=== PATIENT | female | born 1935 | race Caucasian/White ===

== ENCOUNTER 2016-10-22 08:11 | Day surgery (SDC) | payer OTHER, BC ==
[2016-10-21 12:42] VITALS: BMI 28.4
[2016-10-22] MEDS ORDERED: MIDAZOLAM HCL 2 MG/2 ML SINGLE DOSE VIAL ONE (08:27)
[2016-10-22] MEDS ORDERED: BUPIVACAINE HCL/PF 0.5% (5MG/ML) 10 ML VIAL ONE (08:52)
[2016-10-22] MEDS ORDERED: LIDOCAINE 1%/EPI 1:100000 (50 ML MULTI DOSE VIAL) ONE (08:52)
--- NOTE | 2016-10-22 09:28 | HP ---
Admitting History and Physical - Primary Care Physician PCP: Landon Linton (Mail Sorting Supervisor) - Admission Chief Complaint: Pain in the right bunion and 2nd hammertoe History of Present Illness: Patient has tried to accommodate the lesions with shoes but feels she just cannot tolerate the discomfort any longer. History Source: Medical Record (Medical history deferred to pcp) - Past Medical History OPTOMETRIST: Yes: CVA Cardiovascular: Yes: HTN, Hyperlipdemia Endocrine: Yes: Diabetes Mellitus - Advance Directives Advance Directives: Yes: Health Care Proxy - Smoking History Smoking history: Never smoked - Alcohol/Substance Use Hx Alcohol Use: No History of Substance Use: reports: None - Social History History of Recent Travel: No Home Medications - Allergies Allergies/Adverse Reactions: Allergies Allergy/AdvReac Type Severity Reaction Status Date / Time No Known Allergies Allergy Verified 10/21/16 12:42 - Home Medications Home Medications: Ambulatory Orders Amlodipine Besylate [Norvasc -] 10 mg PO DAILY 02/19/15 Canagliflozin [Invokana] 100 mg PO DAILY 02/19/15 Glimepiride 4 mg PO BID 02/19/15 Simvastatin [Zocor -] 20 mg PO HS 02/19/15 Sitagliptin Phosphate [Januvia] 100 mg PO DAILY 02/19/15 Aspirin Coated [Ecotrin -] 81 mg PO DAILY #30 tablet.ec 02/25/15 Atorvastatin Ca [Lipitor] 10 mg PO HS #30 tablet 02/25/15 Clopidogrel Bisulfate [Plavix -] 75 mg PO DAILY #30 tablet 02/25/15 Pantoprazole Sodium [Protonix -] 40 mg PO DAILY #30 tablet.ec 02/25/15 Physical Examination Vital Signs: Vital Signs Temperature 97.7 F 10/22/16 08:43 Pulse Rate 79 10/22/16 08:43 Respiratory Rate 18 10/22/16 08:43 Blood Pressure 133/76 10/22/16 08:43 O2 Sat by Pulse Oximetry (%) 97 10/22/16 08:46 Musculoskeletal: Yes: Other (badly subluxed right hallux is present with hammered right 2nd toe.) Assessment/Plan Assessment Right severe bunion with hallux valgus. Right 2nd hammertoe Plan Right Coats with arthroplasty in the right 2nd toe.
[2016-10-22] MEDS ORDERED: ceFAZolin SODIUM 1 GM VIAL IVPB ONE (10:05)
[2016-10-22] MEDS ORDERED: LIDOCAINE 1%/EPI 1:100000 (50 ML MULTI DOSE VIAL) INF ONE (10:07)
[2016-10-22] MEDS ORDERED: BUPIVACAINE HCL/PF 0.5% (5MG/ML) 10 ML VIAL IJ ONE (10:07)
[2016-10-22] MEDS ORDERED: ACETAMINOPHEN 325 MG TABLET (FP) PO PRN (11:46)
[2016-10-22] MEDS ORDERED: ONDANSETRON 4 MG/2 ML VIAL IVPUSH PRN ×2 (11:46)
[2016-10-22 12:22] VITALS: TEMP 97.7
[2016-10-22 12:28] VITALS: PULSE 80
[2016-10-22 13:39] VITALS: BP 134/76
--- NOTE | 2016-10-22 13:46 | OP ---
DATE OF OPERATION: 10/22/2016 SURGEON: Landon Linton DPM PREOPERATIVE DIAGNOSES: Right bunion with hallux valgus and right 2nd hammertoe. POSTOPERATIVE DIAGNOSES: Right bunion with hallux valgus and right 2nd hammertoe. PROCEDURE: Right Coats bunionectomy and right 2nd toe arthroplasty. DESCRIPTION OF PROCEDURE: Under fractional anesthesia and a surgical scrub with Betadine scrub and solution x2, the patient was draped using sterile technique. After 3 minutes of right limb elevation, a right ankle tourniquet was inflated to 250 mmHg pressure for 58 minutes. Inspection of the right foot showed a complete subluxation of the right 1st metatarsophalangeal joint and hammering of the proximal interphalangeal joint of the right 2nd toe. Using a number 15 surgical blade, a linear longitudinal incision was made on the dorsomedial aspect of the right foot over the 1st metatarsophalangeal joint. The incision was deepened through fascia and retracted. The extensor tendon was identified. The extensor santos apparatus was cut medially and laterally, and then a Z-plasty extensor tendon lengthening was performed. A linear longitudinal capsulotomy was performed at the 1st metatarsophalangeal joint, interphalangeal ligaments and sesamoidal ligaments were cut and the 1st metatarsophalangeal joint bones were delivered into the wound. Large medial eminence, lots of dystrophy in the 1st metatarsal head joint capsule was noted, and then an osteotomy was performed at the flare of the proximal phalanx to remove the base of the proximal phalanx in the right hallux. Following resection of the base of the proximal phalanx, a large portion of medial eminence and 1st metatarsal head were removed from the medial aspect of the 1st metatarsal to reduce the prominence in the 1st metatarsophalangeal joint. The bone edges were rounded and smoothed, and then the wound was copiously irrigated with sterile saline. Joint capsule was fashioned into 3 flaps and sutured around the 1st metatarsal head with 3-0 Vicryl suture. This included a plantar flap and the flexor tendon, which remained intact throughout the procedure, and medial and lateral metatarsophalangeal joint flaps. The hallux was reduced into a normal anatomic position and also sutured down, periosteum to the triple flap of the metatarsal head. The extensor tendon was reapproximated in normal anatomic position in its lengthened form, and then superficial fascia was reapproximated and closed with 4-0 Vicryl suture. Skin was then reapproximated and closed with 4-0 Prolene suture. Attention was then directed to the right 2nd toe. A linear longitudinal incision was made in the midline of the right 2nd toe with the proximal interphalangeal joint. The incision was deepened through fascia and retracted, exposing the joint capsule. A transverse capsulotomy was performed. The head of the proximal phalanx of the 2nd toe was delivered into the wound and resected using bone cutting forceps. The wound was irrigated with sterile saline, and then the joint capsule was repaired with 4-0 Vicryl suture. Skin was then reapproximated as the toe was reduced into a more normal anatomic position and closed with 4-0 Prolene suture. The ankle tourniquet was deflated after 58 minutes of inflation. Vascular perfusion immediately returned to all 5 digits, so a dry sterile dressing was applied to the right foot. The patient tolerated the surgical procedure well, left the operating room stable, alert, awake, and in no pain. VIKA MELO/[id number]
--- NOTE | 2016-10-25 13:50 | PATH ---
Surgical Pathology Report Patient Name: FARIDEH MELO [facility]. Rec. #: [id number] /Age/Gender: 1935 (Age: 81) / F Account: [id number] Location: [facility] Taken: 10/22/2016 Received: 10/22/2016 Reported: 10/25/2016 Physicians: Landon Linton M.D. Specimen(s) Received A: BONE FRAGMENTS RIGHT 2ND TOE B: BONE 1ST METATARSAL HEAD RIGHT FOOT Clinical History Right bunion left hallux rigidus Final Diagnosis A. BONE, RIGHT SECOND TOE, EXCISION: UNREMARKABLE BONE AND ARTICULAR CARTILAGE. B. BONE, RIGHT FOOT FIRST METATARSAL HEAD, EXCISION: BONE AND CARTILAGE WITH REACTIVE CHANGES. Electronically Signed Royer Cortes M.D. Gross Description A. Received in formalin, labeled "bone right second toe," are 2 linares, irregular portions of bone measuring 1.0 x 0.4 x 0.3 cm and 1.1 x 0.7 x 0.5 cm. The larger portion is bisected and the specimen is entirely submitted in one cassette, following decalcification. B. Received in formalin, labeled "bone first metatarsal head," are 2 linares, irregular portions of bone measuring 2.0 x 1.7 x 0.8 cm and tissue 0.7 x 2.0 x 1.0 cm. [employer] sections are submitted in one cassette, following decalcification. 10/22/201610/22/2016
== END 2016-10-22 13:41 | disposition home or self-care (01) ==
LOC: JASU-SURG 08:11
PROVIDERS: ATTEND Podiatrist Foot Surgery
PROC: 0QBN0ZZ Excision of Right Metatarsal, Open Approach (ICD-10-PCS; 2016-10-22)
PROC: 0SRP0JZ Replacement of Right Toe Phalangeal Joint with Synthetic Substitute, Open Approach (ICD-10-PCS; principal; 2016-10-22 09:30)
DX: M21.611 Bunion of right foot (principal); M20.11 Hallux valgus (acquired), right foot; M20.41 Other hammer toe(s) (acquired), right foot
CPT/HCPCS: 73630-TC-RT; 88304-TC; 88311-TC; 94760

== ENCOUNTER 2017-04-02 00:29 | Inpatient (IN) | payer OTHER, BC ==
[2017-04-02 01:09] VITALS: BMI 28.2
[2017-04-02] MEDS ORDERED: SODIUM CHLORIDE 1,000 ML IV SCH ×2 (01:15→07:30)
[2017-04-02] MEDS ORDERED: ONDANSETRON 4 MG/2 ML VIAL IVPB ONE (01:15)
[2017-04-02] MEDS ORDERED: ONDANSETRON 4 MG/2 ML VIAL ONE (01:46)
[2017-04-02 01:47] LABS: BASOPHIL 0.2 % (0-2.0); EOSINOPHIL 0.6 % (0-4.5); MCH 26.7 pg (25.7-33.7); MCHC 33.4 g/dl (32.0-36.0); MEAN PLT VOLUME 9.5 fl (7.5-11.1); NEUTROPHILS 82.6 % (42.8-82.8); PLATELET COUNT 195 K/MM3 (134-434); RDW 14.1 % (11.6-15.6); WHITE BLOOD COUNT 17.2 K/mm3 (4.0-10.0)
[2017-04-02 01:59] LABS: INR 0.97 (0.82-1.09); PROTHROMBIN TIME (PATIENT) 10.7 SEC (9.98-11.88)
[2017-04-02 02:08] LABS: ALBUMIN 4.4 g/dl (3.4-5.0); ANION GAP 12 (8-16); CALCIUM 9.2 mg/dL (8.5-10.1); CHOLESTEROL 181 mg/dL (50-200); CO2 26 mmol/L (21-32); CREATININE 0.7 mg/dL (0.55-1.02); GLUCOSE,RANDOM 206 mg/dL (74-106); SGPT/ALT 34 U/L (12-78)
[2017-04-02 02:12] LABS: ALK PHOS 95 U/L (45-117); BILIRUBIN,TOTAL 1.2 mg/dL (0.2-1.0); TOT PROT 7.7 g/dl (6.4-8.2); TROPONIN I < 0.02 ng/ml (0.00-0.05)
[2017-04-02 02:13] LABS: SGOT/AST 27 U/L (15-37)
--- NOTE | 2017-04-02 02:13 | PDOC ---
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 As per daughter, the patient was at her baseline when she fell asleep around 8:30 pm last night. Daughter states the patient woke up around 10:30 pm saying shedidn't feel well. Daughter states the patient was diaphoretic, vomiting, passing a lot of gas, wet her bed, and also noted hematuria. Upon evaluation, patient exhibited seizure-like symptoms, right sided arm weakness and right sided mouth dropping. Patient recently had a brain MRI done on 03/15/17 that showed a subacute infarct. Denies fevers or chills. Denies chest pain or shortness of breath. Denies abdominal pain, diarrhea, or hematuria. Denies flank pain. Denies any other symptoms. <Alessio Dunn - Last Filed: 04/02/17 02:15> - General History Source: Patient, Family Exam Limitations: No Limitations <Blu Lopez - Last Filed: 04/02/17 23:41> - General Chief Complaint: Nausea/Vomiting Stated Complaint: ALTERED MENTAL STATUS/VOMITING Time Seen by Provider: 04/02/17 00:57 Past History <Alessio Dunn - Last Filed: 04/02/17 02:15> - Past Medical History Anemia: No Asthma: No Cancer: No Cardiac Disorders: No CVA: Yes (SEVERAL CVA'S) COPD: No CHF: No Dementia: No Diabetes: Yes GI Disorders: No Disorders: No HTN: Yes Hypercholesterolemia: Yes Liver Disease: No Suicide Attempt (Hx): No Seizures: No Thyroid Disease: No - Surgical History Abdominal Surgery: No Appendectomy: No Cardiac Surgery: Yes (REVEAL LINQ cardiac monito implanted) Cholecystectomy: Yes Lung Surgery: No Neurologic Surgery: No Orthopedic Surgery: No - Psycho/Social/Smoking Cessation Hx Suicidal Ideation: No Smoking History: Never smoked Have you smoked in the past 12 months: No Information on smoking cessation initiated: No Hx Alcohol Use: No Drug/Substance Use Hx: No Substance Use Type: None Hx Substance Use Treatment: No <Blu Lopez - Last Filed: 04/02/17 23:41> - Past Medical History Allergies/Adverse Reactions: Allergies Allergy/AdvReac Type Severity Reaction Status Date / Time No Known Allergies Allergy Verified 04/02/17 00:47 Home Medications: Ambulatory Orders Amlodipine Besylate [Norvasc -] 10 mg PO DAILY 04/02/17 Calcium Carbonate [Calcium] 500 mg PO BID 04/02/17 Canagliflozin [Invokana] 100 mg PO DAILY 04/02/17 Cholecalciferol (Vitamin D3) [Vitamin D3 -] 5,000 unit PO DAILY 04/02/17 Clopidogrel Bisulfate [Plavix -] 75 mg PO DAILY 04/02/17 Glimepiride [Amaryl -] 2 mg PO BID 04/02/17 Glucosamine Sulfate Dipot Chlr [Glucosamine] 1,000 mg PO BID 04/02/17 L.acidoph,Paracasei, B.lactis [Probiotic] 1 each PO BID 04/02/17 Simvastatin [Zocor -] 20 mg PO HS 04/02/17 Sitagliptin Phosphate [Januvia] 50 mg PO DAILY 04/02/17 Review of Systems - Review of Systems Able to Perform ROS?: Yes Comments:: 04/02/17 02:16 GENERAL/CONSTITUTIONAL: + diaphoresis, change in behavior. No fever or chills HEAD, EYES, EARS, NOSE AND THROAT: No change in vision. No ear pain or discharge. No sore throat. CARDIOVASCULAR: No chest pain or shortness of breath. RESPIRATORY: No cough, wheezing, or hemoptysis. GASTROINTESTINAL: + vomiting, flatulence. No diarrhea or constipation. GENITOURINARY: + hematuria. No dysuria, frequency. MUSCULOSKELETAL: No joint or muscle swelling or pain. No neck or back pain. SKIN: No rash NEUROLOGIC: + seizure-like symptoms, right arm weakness, right mouth drooping. No headache, vertigo, loss of consciousness. ENDOCRINE: No increased thirst. No abnormal weight change. HEMATOLOGIC/LYMPHATIC: No anemia, easy bleeding, or history of blood clots. ALLERGIC/IMMUNOLOGIC: No hives or skin allergy. All Other Systems: Reviewed and Negative <Alessio Dunn - Last Filed: 04/02/17 02:15> *Physical Exam - Vital Signs Last Vital Signs Temp Pulse Resp BP Pulse Ox 97.9 F 94 H 18 137/83 98 04/02/17 00:47 04/02/17 00:47 04/02/17 00:47 04/02/17 00:47 04/02/17 00:47 - Physical Exam Comments: 04/02/17 02:16 GENERAL: Awake, alert, and fully oriented, in no acute distress HEAD: No signs of trauma EYES: PERRLA, EOMI, sclera anicteric, conjunctiva clear ENT: Auricles normal inspection, hearing grossly normal, nares patent, oropharynx clear without exudates. Moist mucosa NECK: Normal ROM, supple, no lymphadenopathy, JVD, or masses LUNGS: Breath sounds equal, clear to auscultation bilaterally. No wheezes, and no crackles HEART: Regular rate and rhythm, normal S1 and S2, no murmurs, rubs or gallops ABDOMEN: Soft, nontender, normoactive bowel sounds. No guarding, no rebound. No masses EXTREMITIES:, no edema. No clubbing or cyanosis. No cords, erythema, or tenderness NEUROLOGICAL: + Tiny seizure on examination. Right facial droop, 3/5 Right upper extremity strength, unable to tell me if there is decrese sensation, mild slurring speech, right pronator drift. SKIN: Warm, Dry, normal turgor, no rashes or lesions noted. <Alessio Dunn - Last Filed: 04/02/17 02:15> - Vital Signs Last Vital Signs Temp Pulse Resp BP Pulse Ox 97.9 F 94 H 18 137/83 98 04/02/17 00:47 04/02/17 00:47 04/02/17 00:47 04/02/17 00:47 04/02/17 00:47 - Physical Exam Comments: 04/02/17 23:40 PLEASE DISREGARD DOCUMENTATION BY SCRIBE. THERE WAS NO SEIZURE! <Blu Lopez - Last Filed: 04/02/17 23:41> NIH Stroke Scale - Last Known Well Date/Time & Onset Date Last Known Well: 04/02/17 Time Last Known Well: 20:30 - Initial Evaluation Level of consciousness: Alert Ask patient the month and their age: Answers both correctly Ask patient to open & close eyes; make fist and let go: Obeys both correctly Best gaze (horizontal eye movement): Normal Visual field testing: No visual field loss Facial paresis (Show teeth/raise eyebrows/close eyes tight): Partial paralysis ( total or near paralysis of lower face) Motor Function: Left Arm: Normal Motor Function: Right Arm: Some effort against gravity Motor Function: Left Leg: Normal (extends leg 30 degrees for 5 seconds without drift) Motor Function: Right Leg: Normal (extends leg 30 degrees for 5 seconds without drift) Limb Ataxia: No ataxia Sensory(Use pinprick test arms,legs,trunk,face/side to side): Normal Best language (Describe picture, name items, read sentences): No Aphasia Dysarthria (read several words): Mild to moderate slurring of words Extinction and Inattention: No abnormality - Total Score NIH Stroke Scale Score: 5 <Blu Lopez - Last Filed: 04/02/17 23:41> Heart Score/ECG Review #1 ECG reviewed & interpreted by me at: 01:40 04/02/17 02:14 NSR 96, RBBB, submm STD V3-V5, no std/mily, QTC 571 msec <Blu Lopez - Last Filed: 04/02/17 23:41> Critical Care Time/MDM Note - Medical Decision Making Note: 04/02/17 02:12 A portion of this note was documented by scribe services under my direction. I have reviewed the details of the note, within reason, and agree with the documentation with the following case summary and management plan written by me. Patient treated in the ED. Nursing notes are reviewed and incorporated into the medical decision-making. Vital signs reviewed. Peripheral IV access obtained by the nurse, laboratory studies are drawn and sent, reviewed and interpreted by myself. Vital Signs Temp Pulse Resp BP Pulse Ox 97.9 F 94 H 18 137/83 98 04/02/17 00:47 04/02/17 00:47 04/02/17 00:47 04/02/17 00:47 04/02/17 00:47 81 year old female with Past medical history of hypertension, diabetes, hyperlipidemia, history of stroke with residual right-sided deficits presents to the emergency department for right-sided facial droop and right upper showing weakness. The patient was in her usual state of health when approximately 8:30 PM, her last well-known, she had went to sleep and woke approximately 10:30 AM with right upper extremity weakness and right facial droop which is worse than her usual baseline. Denies fevers or chills. Denies cough or vomiting. Patient did have an MRI of the brain in March 15 which time should nonhemorrhagic subacute infarct in the right periatrial white matter. When I had evaluated the patient, the patient was outside the window for TPA. Patient was brought immediately to the head CT to rule out new strokes. Within differential is recrudescence. We'll obtain labs, urinalysis, chest x-ray and admit the patient to the hospital for further evaluation. 04/02/17 05:50 CT head with no acute findings. CBC, BMP 04/02/17 01:40 04/02/17 01:40 CMP Sodium 143 mmol/L (136-145) 04/02/17 01:40 Potassium 3.3 mmol/L (3.5-5.1) L 04/02/17 01:40 Chloride 105 mmol/L (98-107) 04/02/17 01:40 Carbon Dioxide 26 mmol/L (21-32) 04/02/17 01:40 Anion Gap 12 (8-16) 04/02/17 01:40 BUN 15 mg/dL (7-18) 04/02/17 01:40 Creatinine 0.7 mg/dL (0.55-1.02) D 04/02/17 01:40 Creat Clearance w eGFR > 60 (>60) 04/02/17 01:40 Random Glucose 206 mg/dL (74-106) H D 04/02/17 01:40 Calcium 9.2 mg/dL (8.5-10.1) 04/02/17 01:40 Total Bilirubin 1.2 mg/dL (0.2-1.0) H D 04/02/17 01:40 AST 27 U/L (15-37) D 04/02/17 01:40 ALT 34 U/L (12-78) D 04/02/17 01:40 Alkaline Phosphatase 95 U/L (45-117) 04/02/17 01:40 Creatine Kinase 87 IU/L (26-192) 04/02/17 01:40 Troponin I < 0.02 ng/ml (0.00-0.05) 04/02/17 01:40 Total Protein 7.7 g/dl (6.4-8.2) 04/02/17 01:40 Albumin 4.4 g/dl (3.4-5.0) D 04/02/17 01:40 Triglycerides 104 mg/dL (35-160) 04/02/17 01:40 Cholesterol 181 mg/dL (50-200) 04/02/17 01:40 Total LDL Cholesterol 112 mg/dL (5-100) H 04/02/17 01:40 HDL Cholesterol 60 mg/dL (40-60) D 04/02/17 01:40 Urine Test Results Urine Color Ltyellow 04/02/17 04:30 Urine Appearance Clear 04/02/17 04:30 Urine pH 7.0 (5.0-8.0) 04/02/17 04:30 Urine Protein Negative (NEGATIVE) 04/02/17 04:30 Urine Glucose (UA) 3+ (NEGATIVE) H 04/02/17 04:30 Urine Ketones Trace (NEGATIVE) H 04/02/17 04:30 Urine Blood Negative (NEGATIVE) 04/02/17 04:30 Urine Nitrite Negative (NEGATIVE) 04/02/17 04:30 Urine Bilirubin Negative (NEGATIVE) 04/02/17 04:30 Ur Leukocyte Esterase Trace (NEGATIVE) H 04/02/17 04:30 Urine RBC 1 /hpf (0-3) 04/02/17 04:30 Urine WBC 2 /hpf (3-5) 04/02/17 04:30 Ur Epithelial Cells Rare /hpf (FEW) 04/02/17 04:30 Given the white count of 17, blood cultures ordered and empiric vancomycin and Zosyn was ordered. Consultation was placed in for Dr. Wiggins for consultation. Will place a page. Case discussed with [facility] hospitalist. Pt will be admitted to the stroke unit. Case discussed in detail with admitting physician including history, physical exam and ancillary studies. Admitting physician has assumed care for the patient, will follow all pending diagnostics and will complete the evaluation and treatment. 04/02/17 06:09 Asa ordered. Case discussed with DR. Mich Wiggins who will see patient. <Blu Lopez - Last Filed: 04/02/17 23:41> Discharge Disposition <Alessio Dunn - Last Filed: 04/02/17 02:15> - Discharge Dispostion Last Admission D/C Date: 02/25/15 Admit: Yes <Blu Lopez - Last Filed: 04/02/17 23:41> - Diagnosis Right sided weakness Leukocytosis Qualifiers: Leukocytosis type: unspecified Qualified Code(s): D72.829 - Elevated white blood cell count, unspecified - Referrals
[2017-04-02 03:03] LABS: LDL CHOLESTEROL (ONLY SJRH) 112 mg/dL (5-100)
[2017-04-02 04:48] LABS: URINE APPEARANCE CLEAR; URINE BILIRUBIN NEGATIVE (NEGATIVE); URINE BLOOD NEGATIVE (NEGATIVE); URINE COLOR LTYELLOW; URINE GLUCOSE (UA) 3+ (NEGATIVE); URINE KETONE TRACE (NEGATIVE); URINE NITRITE NEGATIVE (NEGATIVE); URINE PROTEIN NEGATIVE (NEGATIVE); URINE UROBILINOGEN NEGATIVE mg/dL (0.2-1.0)
[2017-04-02 04:49] LABS: URINE LEUK ESTERASE TRACE (NEGATIVE)
[2017-04-02 04:52] LABS: URINE RBC 1 /hpf (0-3); URINE WBC 2 /hpf (3-5)
[2017-04-02] MEDS ORDERED: ASPIRIN 81 MG CHEWABLE TABLETS PO ONE (06:08)
[2017-04-02] MEDS ORDERED: ASPIRIN 325 MG TABLET ONE (06:31)
--- NOTE | 2017-04-02 06:47 | HP ---
CHIEF COMPLAINT: nausea, dizzy PCP: Nirmal Saenz?? HISTORY OF PRESENT ILLNESS: This is an 81 year old female with a a past medical history of mult CVAs with residual RUE weakness, HTN, HLD, DM who presented to the ED after awakening at 1030pm "not feeling well". All history obtained from ED chart as pt is primarily Estonian speaking; osteopathy doctor (#[id number]) was contacted and pt informed the osteopathy doctor to call her daughter. Senior Wealth Advisor reported speech was slurred and very difficult to understand. Pt reportedly was fine when she went to sleep at 830, but then awok at 1030 not felling well. Her daughter reported she was nauseas, dizzy, diaphoretic, vomiting, passing gas, and wet her bed. Hematuria was noted as well. ED provider noted a 5 second episode of shaking of right upper extremity with right sided gaze but without postictal period. Pt reports feeling better on exam. Is able to follow simple commands and answer simple questions. ER course was notable for: (1) CT head with no acute changes (2) WBC 17.2, (3) Potassium 3.3 Recent Travel: unknown PAST MEDICAL HISTORY: mult CVAs with residual RUE weakness, HTN, HLD, DM PAST SURGICAL HISTORY: bus monitor-loop recorder implanted R bunionectomy 2nd hammertoe surgery 10/2016 Social History: Smoking: unknown Alcohol: unknown Drugs: unknown Family History: unknown Allergies No Known Allergies Allergy (Verified 04/02/17 00:47) HOME MEDICATIONS: 3 Medication Instructions Recorded Amlodipine Besylate [Norvasc -] 10 mg PO DAILY 02/19/15 Canagliflozin [Invokana] 100 mg PO DAILY 02/19/15 Glimepiride 4 mg PO BID 02/19/15 Simvastatin [Zocor -] 20 mg PO HS 02/19/15 Sitagliptin Phosphate [Januvia] 100 mg PO DAILY 02/19/15 Aspirin Coated [Ecotrin -] 81 mg PO DAILY #30 tablet.ec 02/25/15 Atorvastatin Ca [Lipitor] 10 mg PO HS #30 tablet 02/25/15 Clopidogrel Bisulfate [Plavix -] 75 mg PO DAILY #30 tablet 02/25/15 Pantoprazole Sodium [Protonix -] 40 mg PO DAILY #30 tablet.ec 02/25/15 REVIEW OF SYSTEMS CONSTITUTIONAL: Present: diaphoresis Absent: fever, chills, generalized weakness, malaise, loss of appetite, weight change HEENT: Absent: rhinorrhea, nasal congestion, throat pain, throat swelling, difficulty swallowing, mouth swelling, ear pain, eye pain, visual changes CARDIOVASCULAR: Absent: chest pain, syncope, palpitations, irregular heart rate, lightheadedness , peripheral edema RESPIRATORY: Absent: cough, shortness of breath, dyspnea with exertion, orthopnea, wheezing, stridor, hemoptysis GASTROINTESTINAL: Present: nausea, vomiting Absent: abdominal pain, abdominal distension, diarrhea, constipation, melena, hematochezia GENITOURINARY: Present: incontinent, hematuria Absent: dysuria, frequency, urgency, hesitancy, flank pain, genital pain MUSCULOSKELETAL: Absent: myalgia, arthralgia, joint swelling, back pain, neck pain SKIN: Absent: rash, itching, pallor HEMATOLOGIC/IMMUNOLOGIC: Absent: easy bleeding, easy bruising, lymphadenopathy, frequent infections ENDOCRINE: Absent: unexplained weight gain, unexplained weight loss, heat intolerance, cold intolerance NEUROLOGIC: Absent: headache, focal weakness or paresthesias, dizziness, unsteady gait, seizure, mental status changes, bladder or bowel incontinence PSYCHIATRIC: Absent: anxiety, depression, suicidal or homicidal ideation, hallucinations. PHYSICAL EXAMINATION Vital Signs - 24 hr 3 04/02/17 04/02/17 04/02/17 00:47 02:29 06:37 Temperature 97.9 F 98.2 F Pulse Rate 94 H Pulse Rate [ 94 H Left] Respiratory 18 19 Rate Blood Pressure 137/83 Blood Pressure 142/70 [Left Arm] O2 Sat by Pulse 98 99 99 Oximetry (%) GENERAL: Awake, alert, and fully oriented, in no acute distress. HEAD: Normal with no signs of trauma. EYES: Pupils equal, round and reactive to light, extraocular movements intact, sclera anicteric, conjunctiva clear. No lid lag. EARS, NOSE, THROAT: Ears normal, nares patent, oropharynx clear without exudates. Moist mucous membranes. NECK: Normal range of motion, supple without lymphadenopathy, JVD, or masses. LUNGS: Breath sounds equal, clear to auscultation bilaterally. No wheezes, and no crackles. No accessory muscle use. HEART: Regular rate and rhythm, normal S1 and S2 without murmur, rub or gallop. ABDOMEN: Soft, nontender, not distended, normoactive bowel sounds, no guarding, no rebound, no masses. No hepatomegaly or splenomegaly. MUSCULOSKELETAL: Normal range of motion at all joints. No bony deformities or tenderness. No CVA tenderness. UPPER EXTREMITIES: 2+ pulses, warm, well-perfused. No cyanosis. No clubbing. No peripheral edema. LOWER EXTREMITIES: 2+ pulses, warm, well-perfused. No calf tenderness. No peripheral edema. NEUROLOGICAL: Cranial nerves II-XII intact. Normal speech. Normal gait. RUE strength 4/5, all else 5/5 PSYCHIATRIC: Cooperative. Good eye contact. Appropriate mood and affect. SKIN: Warm, dry, normal turgor, no rashes or lesions noted, normal capillary refill. Laboratory Results - last 24 hr 3 04/02/17 04/02/17 04/02/17 01:40 01:40 01:40 WBC 17.2 H D RBC 6.10 H Hgb 16.3 H Hct 48.8 H MCV 80.0 MCH 26.7 MCHC 33.4 RDW 14.1 Plt Count 195 D MPV 9.5 Neutrophils % 82.6 D Lymphocytes % 11.8 D Monocytes % 4.8 Eosinophils % 0.6 Basophils % 0.2 INR 0.97 Sodium 143 Potassium 3.3 L Chloride 105 Carbon Dioxide 26 Anion Gap 12 BUN 15 Creatinine 0.7 D Creat Clearance w eGFR > 60 Random Glucose 206 H D Calcium 9.2 Total Bilirubin 1.2 H D AST 27 D ALT 34 D Alkaline Phosphatase 95 Creatine Kinase 87 Troponin I < 0.02 Total Protein 7.7 Albumin 4.4 D Triglycerides 104 Cholesterol 181 Total LDL Cholesterol 112 H HDL Cholesterol 60 D Urine Color Urine Appearance Urine pH Urine Protein Urine Glucose (UA) Urine Ketones Urine Blood Urine Nitrite Urine Bilirubin Urine Urobilinogen Ur Leukocyte Esterase Urine RBC Urine WBC Ur Epithelial Cells Blood Type AB POSITIVE Antibody Screen Negative 3 Urine Color Ltyellow 04/02/17 04:30 Urine Appearance Clear 04/02/17 04:30 Urine pH 7.0 (5.0-8.0) 04/02/17 04:30 Urine Protein Negative (NEGATIVE) 04/02/17 04:30 Urine Glucose (UA) 3+ (NEGATIVE) H 04/02/17 04:30 Urine Ketones Trace (NEGATIVE) H 04/02/17 04:30 Urine Blood Negative (NEGATIVE) 04/02/17 04:30 Urine Nitrite Negative (NEGATIVE) 04/02/17 04:30 Urine Bilirubin Negative (NEGATIVE) 04/02/17 04:30 Ur Leukocyte Esterase Trace (NEGATIVE) H 04/02/17 04:30 Urine RBC 1 /hpf (0-3) 04/02/17 04:30 Urine WBC 2 /hpf (3-5) 04/02/17 04:30 Ur Epithelial Cells Rare /hpf (FEW) 04/02/17 04:[address] head Images: 74 Clinical indication: Rule out CVA/TIA. Weakness. Findings: Multiple axial images were obtained of the brain without contrast. There is no mass-effect, midline shift or hemorrhage. There is no intra-axial or extra-axial fluid collection. Atrophic involutional changes and chronic ischemic periventricular white matter changes are noted. Focal hypoattenuation seen in the left basal ganglia on the margin of the left thalamus is consistent with a small vessel infarct likely chronic. Focal periventricular white matter hypoattenuation seen on the left also appears to represents old small vessel infarct. The visualized portions of the paranasal sinuses are clear. The middle ear cavities and mastoids are clear. Impression: No mass effect or intracranial hemorrhage. No acute abnormality identified THIS DOCUMENT HAS BEEN ELECTRONICALLY SIGNED Sy Stephenson M.D. 01:32 TRISTA Patel Please call Imaging Parole Director [phone] ([phone]) with questions. End of Report Content ====== Senior Wealth Advisor: ([email or web address]) Report Date: 04/02/2017 01:15:00 Report Status: Preliminary Begin of Report Content Referring Physician: Blu Lopez Patient Name: Krissy Lucas This is a preliminary report by imaging commissioning specialist Exam: Noncontrast CT head Images: 74 Clinical indication: Rule out CVA/TIA. Weakness. Findings: Multiple axial images were obtained of the brain without contrast. There is no mass-effect, midline shift or hemorrhage. There is no intra-axial or extra-axial fluid collection. Atrophic involutional changes and chronic ischemic periventricular white matter changes are noted. Focal hypoattenuation seen in the left basal ganglia on the margin of the left thalamus is consistent with a small vessel infarct likely chronic. Focal periventricular white matter hypoattenuation seen on the left also appears to represents old small vessel infarct. The visualized portions of the paranasal sinuses are clear. The middle ear cavities and mastoids are clear. Impression: No mass effect or intracranial hemorrhage. No acute abnormality identified THIS DOCUMENT HAS BEEN ELECTRONICALLY SIGNED Sy Stephenson M.D. 01:32 EST ASSESSMENT/PLAN: 81yF with PMH mult CVA, HTN, HLD, DM presented to the ED with "not feeling well ". Pt is being admitted for further evaluation and treatment. Neuro - appears to be back at baseline - CT with no acute changes - will change simvastatin to lipitor and increased to 40mg - ? sz activity noted - neuro consult pending leukocytosis - urine and blood cultures pending - pt is afebrile - u/a not impressive for acute UTI - will hold ABT unless febrile - will repeat labs tomorrow, consider repeating later today DM - BGM TIDAC and HS with novolog sliding scale - po medications need to be verified with pharmacy (pt didn't know name) or family, hold for now. HTN - cont amlodipine with hold parameters, verify pt is in fact still on same. HLD - changed to lipitor 40mg QHS DVT PPX - heparin 5000u BID FEN - gentle hydration with NS 75cc/hr x 1 L - repeat BMP with mag and phos in am - diabetic/low sodium diet (pt able to swallow water and medication in ED without difficulty) Dispo: Pt currently requires inpatient management of her emergent conditions. Visit type - Emergency Visit Emergency Visit: Yes ED Registration Date: 04/02/17 Care time: The patient presented to the Emergency Department on the above date and was hospitalized for further evaluation of their emergent condition. - New Patient This patient is new to me today: Yes Date on this admission: 04/02/17 - Critical Care Critical Care patient: No
[2017-04-02] MEDS ORDERED: INSULIN SLIDING SCALE (NOVOLOG) 1 VIAL SQ SCH (07:00)
[2017-04-02] MEDS ORDERED: POTASSIUM CHLORIDE TABS 20 MEQ TABLET.ER (FP) PO ONE ×2 (07:02→10:00)
--- NOTE | 2017-04-02 08:49 | PN ---
Physical Exam: SUBJECTIVE: Patient seen and examined at the bedside. Anxious, unable to fully participate with exam. OBJECTIVE: Anxious, awake, right facial droop Right upper arm weakness when compared to left No tremors noted K. 3.3 repleted, WBC elevated, ID consult for antibiotic therapy Patient has questionable history of Polycythemia vera, will consult hematology Called by RN for blood in pateint's diaper, on exam shweta red blood noted in diaper (vaginal bleed?, hematuria). No drop in hmg/hct, will hold Plavix for acute bleed, resume in a.m. if no further bleeding. Vital Signs Period Temp Pulse Resp BP Sys/Haney Pulse Ox Last 24 Hr 98.2 F 94 19 142/70 99 GENERAL: The patient is awake, alert, anxious HEAD: Normal with no signs of trauma. EYES: pupils reactive to light, right pupil thought to be less reactive than left ENT: Ears normal, nares patent, oropharynx clear without exudates, moist mucous membranes. NECK: Trachea midline, full range of motion, supple. LUNGS: Breath sounds equal, clear to auscultation bilaterally HEART: Regular rate and rhythm ABDOMEN: Soft, non-tender, non-distended, normoactive bowel sounds, no guarding , no rebound, no hepatosplenomegaly, no masses. EXTREMITIES: no edema. NEUROLOGICAL: Unable to comprehend patient, very anxious, emotional support provided PSYCH: +anxiety SKIN: Warm, dry, normal turgor, no rashes or lesions noted Active Medications Generic Name Dose Route Start Last Admin Trade Name Freq PRN Reason Stop Dose Admin Amlodipine Besylate 10 mg 04/02/17 10:00 Norvasc - PO DAILY [facility] Aspirin 81 mg 04/03/17 10:00 Ecotrin - PO DAILY [facility] Atorvastatin Calcium 40 mg 04/02/17 22:00 Lipitor - PO HS [facility] Heparin Sodium (Porcine) 5,000 unit 04/02/17 10:00 Heparin - SQ BID JUSTEN Vancomycin HCl 1,000 mg/ 250 mls @ 250 mls/hr 04/02/17 10:00 Dextrose IVPB BID [facility] Protocol Sodium Chloride 1,000 mls @ 75 mls/hr 04/02/17 07:30 Normal Saline - IV 04/02/17 20:49 ASDIR [facility] Insulin Aspart 1 vial 04/02/17 07:45 Novolog Vial Sliding Scale - SQ ACHS [facility] Protocol Pantoprazole Sodium 40 mg 04/02/17 10:00 Protonix - PO DAILY [facility] Piperacillin Sod/Tazobactam Sod 3.375 gm 04/02/17 10:00 Zosyn 3.375gm Ivpb (Pre-Docked) IVPB BID [facility] Protocol ASSESSMENT/PLAN: Patient is an 81 year old female with a significant past medical history of 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 She presented to the ED on 04/02/2017 after her daughter reported that patient was home asleep and woke up reporting not feeling well. As per ED notes, patient was reportedly fine when she went to bed but awoke later with complaints of feeling nausous, dizzy, was diaphoretic, vomiting with urinary incontinence. Hematuria was noted as well. In the ED she had an episode of a 5 second episode of shaking of right upper extremity with right sided gaze but without postictal period. Patient had a recent admission at [place] and was evaluated for polycythemia vera and was seen by Dr. Welch. Patient hmg/hct remain similar to previous admissions, therefore hematology as been re-consulted. During today's exam, patient again became diophoretic, with an episode of hematuria. She also complained of lower abdominal pain and nausea. Imaging: CT head (stroke): No significant interval change or gross acute intracranial pathology identified. Abdomen/CT/Pelvis: 1.4 cm focal low attenuation density in the right hepatic lobe, non specific. +post cholecystectomy surgical metallic clips present Neurology: Rule out CVA/TIA - acute A/P: CT head (stroke): No significant interval change or gross acute intracranial pathology identified. Given ASA 324 on admission and on Plavix home dose but holding Plavix secondary to episode of hematuria BP elevated, cardiology consult On Norvasc 10mg daily On Simvastatin home dose, family and patient refusing Lipitor 40mg as it causes patient symptoms such as muscle fatigue Brain MRI ordered, EEG ordered Seizures A/P: EEG ordered by neuro Likely seizure episode witnessed in ED without postictal period Neuro following Cardiology: Hypertension - uncontrolled A/P: permissive hypertension? Monitor BP Cardiology consulted Hematology: Erythrocytosis - chronic A/P: Hematology consulted, notes reviewed JAK2 negative 2014 Monitor CBC ID: Leukocytosis - improving A/P: Blood and urine culture pending No fever, but diaphoretic again this morning Blood sugar remained stable On Zosyn and Vanco ID consulted as pt is elderly and has leukocytosis with diaphorectic episodes Endocrine: Diabetes Mellitus A/P: Monitor BGMs tid/ac/hs On Novolog F.E.N. Fluids: NS @42cc/hr Electrolytes: monitor Nutrition: NPO for abdominal discomfort, clears in a.m. Prophylaxis: GI: Protonix IVPB DVT: hold secondary to hematuria
[2017-04-02] MEDS: PANTOPRAZOLE 40 MG TABLET (FP) PO SCH (09:42)
[2017-04-02] MEDS: HEPARIN NA (PORCINE) 5,000 UNITS/ML 1ML VIAL SQ SCH ×2 (09:42→22:58)
[2017-04-02] MEDS: amLODIPine BESYLATE 10 MG TABLET (FP) PO SCH (09:42)
[2017-04-02] MEDS ORDERED: PIPERACILLIN/TAZOB 3.375 GM/50 ML PRE-DOCKED IVPB SCH (10:00)
[2017-04-02] MEDS ORDERED: VANCOMYCIN 1,000 MG in DEXTROSE 5%-WATER - 250 ML IVPB SCH (10:00)
[2017-04-02] MEDS ORDERED: VANCOMYCIN 1 GRAM (PRE-DOCKED) 1,000 MG/250 ML BAG IVPB ONE ×2 (10:30→16:30)
--- NOTE | 2017-04-02 10:36 | CON.NEURO ---
Consult - History of Present Illness History of Present Illness: PI 81 year old female hsitory of stroke with residual right upper extremity weakness and frozen shoulder . She also have history of HTN, HLD and Diabetes. She came to hospital for nausea and dizziness. History was taken through help of heating mechanic ( nursing service director at floor) Patient also have history of pseudobulbar palsy, and her mood is labile. Patient denies any numbness or slurring of speech during interview but earlier this morning nursing staff feels her sppech was not that clear and she complained of right sided numbness of face. She feels much better in terms of dizziness and nausea, she could not describes dizziness more in detail. Patient had mri done on march 15 and showed sub acute stroke. She is on aspirin and statin and antihypertensive medicaiton and her bp has been very high in hospital. 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 Cardio/Vascular: Yes: HTN, Hyperlipdemia Endocrine: Yes: Diabetes Mellitus - Alcohol/Substance Use Hx Alcohol Use: No History of Substance Use: reports: None - Smoking History Smoking history: Never smoked Have you smoked in the past 12 months: No - Social History History of Recent Travel: No Home Medications - Allergies Allergies/Adverse Reactions: Allergies Allergy/AdvReac Type Severity Reaction Status Date / Time No Known Allergies Allergy Verified 04/02/17 00:47 - Home Medications Home Medications: Ambulatory Orders Amlodipine Besylate [Norvasc -] 10 mg PO DAILY 02/19/15 Canagliflozin [Invokana] 100 mg PO DAILY 02/19/15 Glimepiride 4 mg PO BID 02/19/15 Simvastatin [Zocor -] 20 mg PO HS 02/19/15 Sitagliptin Phosphate [Januvia] 100 mg PO DAILY 02/19/15 Aspirin Coated [Ecotrin -] 81 mg PO DAILY #30 tablet.ec 02/25/15 Atorvastatin Ca [Lipitor] 10 mg PO HS #30 tablet 02/25/15 Clopidogrel Bisulfate [Plavix -] 75 mg PO DAILY #30 tablet 02/25/15 Pantoprazole Sodium [Protonix -] 40 mg PO DAILY #30 tablet.ec 02/25/15 Physical Exam-Neuro Vital Signs: Vital Signs Temperature 98.2 F 04/02/17 06:37 Pulse Rate 94 H 04/02/17 06:37 Respiratory Rate 19 04/02/17 06:37 Blood Pressure 142/70 04/02/17 06:37 O2 Sat by Pulse Oximetry (%) 99 04/02/17 06:37 Labs: INR, PTT INR 0.97 (0.82-1.09) 04/02/17 01:40 NIH Stroke Scale - Total Score NIH Stroke Scale Score: 0 Imaging - Results Cat Scan: Report Reviewed, Image Reviewed Assessment/Plan cc rule out stroke HPI 81 year old female hsitory of stroke with residual right upper extremity weakness and frozen shoulder . She also have history of HTN, HLD and Diabetes. She came to hospital for nausea and dizziness. History was taken through help of heating mechanic ( nursing service director at floor) Patient also have history of pseudobulbar palsy, and her mood is labile. Patient denies any numbness or slurring of speech during interview but earlier this morning nursing staff feels her sppech was not that clear and she complained of right sided numbness of face. She feels much better in terms of dizziness and nausea, she could not describes dizziness more in detail. Patient had mri done on march 15 and showed sub acute stroke. She is on aspirin and statin and antihypertensive medicaiton and her bp has been very high in hospital. She feels she is back to her baseline Medical History as above. Home Medications Amlodipine Besylate [Norvasc -] 10 mg PO DAILY 02/19/15 Canagliflozin [Invokana] 100 mg PO DAILY 02/19/15 Glimepiride 4 mg PO BID 02/19/15 Simvastatin [Zocor -] 20 mg PO HS 02/19/15 Sitagliptin Phosphate [Januvia] 100 mg PO DAILY 02/19/15 Aspirin Coated [Ecotrin -] 81 mg PO DAILY #30 tablet.ec 02/25/15 Atorvastatin Ca [Lipitor] 10 mg PO HS #30 tablet 02/25/15 Clopidogrel Bisulfate [Plavix -] 75 mg PO DAILY #30 tablet 02/25/15 Pantoprazole Sodium [Protonix -] 40 mg PO DAILY #30 tablet.ec 02/25/15 ROS reviewed in chart Neurological Examination Patinet is alert and follow command no acute distress eomi and no facial asymmetyr and pupils are reactive there is mild right upper extremity weakness and shoulder movement is restricted due to frozen shoulder left upper extremity and both lower extremity is nromal there is no facial sensory loss and sensation is normal bP IS 140/80 CT unremarkable Assessment-- Most yanelis patient has tia and symptoms are now resolved. given her risk factors and recurrent episodes. I would recommend that we should repeat mri of brain , and increase statin and swich apsirin to plavix, and for focal seizures like activity, suggest to do eeg and no need for AED at this time. PT to evlauate for dizziness Plan mri of brain for acute stroke 2. increase lipitor to 40 mg once aday and d/c aspirin and switch to plavix 3. eeg and pt thanks for consult jessica hooper md
[2017-04-02] MEDS ORDERED: CLOPIDOGREL BISULFATE 75 MG TABLET (FP) PO SCH (10:45)
--- NOTE | 2017-04-02 12:21 | CONSULT ---
Consult Consult Specialty:: Hematology Reason for Consultation:: Polycythemia - History of Present Illness Chief Complaint: Patient admitted for ?TIA, noted to have elevated Hct. History of Present Illness: CVA in 2015, at that time with similar polycythemia, seen by Dr Welch who ruled out P. vera - negative JAK2 mutation. Hct not significantly changed since then. 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 Cardio/Vascular: Yes: HTN, Hyperlipdemia Endocrine: Yes: Diabetes Mellitus - Alcohol/Substance Use Hx Alcohol Use: No History of Substance Use: reports: None - Smoking History Smoking history: Never smoked Have you smoked in the past 12 months: No - Social History History of Recent Travel: No Home Medications - Allergies Allergies/Adverse Reactions: Allergies Allergy/AdvReac Type Severity Reaction Status Date / Time No Known Allergies Allergy Verified 04/02/17 00:47 - Home Medications Home Medications: Ambulatory Orders Amlodipine Besylate [Norvasc -] 10 mg PO DAILY 02/19/15 Canagliflozin [Invokana] 100 mg PO DAILY 02/19/15 Glimepiride 4 mg PO BID 02/19/15 Simvastatin [Zocor -] 20 mg PO HS 02/19/15 Sitagliptin Phosphate [Januvia] 100 mg PO DAILY 02/19/15 Aspirin Coated [Ecotrin -] 81 mg PO DAILY #30 tablet.ec 02/25/15 Atorvastatin Ca [Lipitor] 10 mg PO HS #30 tablet 02/25/15 Clopidogrel Bisulfate [Plavix -] 75 mg PO DAILY #30 tablet 02/25/15 Pantoprazole Sodium [Protonix -] 40 mg PO DAILY #30 tablet.ec 02/25/15 Family Disease History - Family Disease History Family History: Unable to Obtain Physical Exam Vital Signs: Vital Signs Temperature 98.2 F 04/02/17 06:37 Pulse Rate 94 H 04/02/17 06:37 Respiratory Rate 19 04/02/17 06:37 Blood Pressure 142/70 04/02/17 06:37 O2 Sat by Pulse Oximetry (%) 99 04/02/17 06:37 Constitutional: Yes: Well Nourished, No Distress, Calm Eyes: Yes: Conjunctiva Clear HENT: Yes: Atraumatic Cardiovascular: Yes: Regular Rate and Rhythm, S1, S2. No: Gallop, Murmur Respiratory: Yes: Regular, CTA Bilaterally Gastrointestinal: Yes: Normal Bowel Sounds, Soft. No: Splenomegaly Edema: No Integumentary: No: Rash Neurological: Yes: Alert Assessment/Plan Long-standing stable erythrocytosis. 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 Never-smoker, with no documented cardiac or pulmonary disease. Ischemic cerebral vascular disease. Role for phlebotomy in JAK2 positive P. vera, but utility in this context is nor clear. Agree with anti-platelet agent(s) as per neurology. Would check epo level - if low may be a role for phlebotomy/cytoreduction.
[2017-04-02 13:10] LABS: BASOPHIL 0.1 % (0-2.0); EOSINOPHIL 0.1 % (0-4.5); MCH 26.8 pg (25.7-33.7); MCHC 33.6 g/dl (32.0-36.0); MEAN CELL VOLUME 79.7 fl (80-96); MEAN PLT VOLUME 9.3 fl (7.5-11.1); NEUTROPHILS 84.8 % (42.8-82.8); PLATELET COUNT 183 K/MM3 (134-434); RDW 14.5 % (11.6-15.6); WHITE BLOOD COUNT 11.8 K/mm3 (4.0-10.0)
[2017-04-02 13:39] LABS: URINE APPEARANCE CLEAR; URINE BILIRUBIN NEGATIVE (NEGATIVE); URINE COLOR LTYELLOW; URINE GLUCOSE (UA) 3+ (NEGATIVE); URINE KETONE TRACE (NEGATIVE); URINE LEUK ESTERASE NEGATIVE (NEGATIVE); URINE NITRITE NEGATIVE (NEGATIVE); URINE PROTEIN NEGATIVE (NEGATIVE); URINE UROBILINOGEN NEGATIVE mg/dL (0.2-1.0)
[2017-04-02 13:43] LABS: URINE BLOOD 2+ (NEGATIVE)
[2017-04-02 13:52] LABS: URINE RBC 58 /hpf (0-3); URINE WBC 126 /hpf (3-5)
[2017-04-02] MEDS: INSULIN SLIDING SCALE (NOVOLOG) 1 VIAL SQ SCH ×3 (14:29→23:04)
[2017-04-02] MEDS ORDERED: ATORVASTATIN CA 10 MG TABLET (FP) PO SCH (22:00)
[2017-04-02] MEDS ORDERED: ATORVASTATIN CA 40 MG TABLET (FP) PO SCH (22:00)
[2017-04-02] MEDS: LACTOBACILLUS ACIDOPHILUS 1 EACH TAB (FP) PO SCH (22:58)
[2017-04-02] MEDS: CALCIUM (OYSTER SHELL) 500 MG TABLET (FP) PO SCH (22:58)
[2017-04-03] MEDS: sitaGLIPtin PHOSPHATE 100 MG TABLET (FP) PO SCH (06:17)
[2017-04-03] MEDS: INSULIN SLIDING SCALE (NOVOLOG) 1 VIAL SQ SCH ×4 (06:22→22:34)
[2017-04-03 07:07] LABS: BASOPHIL 0.3 % (0-2.0); EOSINOPHIL 2.1 % (0-4.5); MCH 27.5 pg (25.7-33.7); MCHC 34.3 g/dl (32.0-36.0); MEAN CELL VOLUME 80.3 fl (80-96); MEAN PLT VOLUME 9.2 fl (7.5-11.1); NEUTROPHILS 68.5 % (42.8-82.8); PLATELET COUNT 164 K/MM3 (134-434); RDW 14.4 % (11.6-15.6); WHITE BLOOD COUNT 8.6 K/mm3 (4.0-10.0)
[2017-04-03 07:29] LABS: ANION GAP 7 (8-16); CALCIUM 9.2 mg/dL (8.5-10.1); CO2 24 mmol/L (21-32); CREATININE 0.7 mg/dL (0.55-1.02); GLUCOSE,RANDOM 140 mg/dL (74-106)
[2017-04-03 08:26] LABS: MAGNESIUM 2.4 mg/dL (1.8-2.4)
[2017-04-03 08:29] LABS: PHOSPHOROUS 2.5 mg/dL (2.5-4.9)
--- NOTE | 2017-04-03 08:38 | CONSULT ---
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 She also have history of HTN, HLD and Diabetes. She came to hospital for nausea and dizziness. History was taken through help of crosscutter ( nursing unit clerk at floor) Patient also have history of pseudobulbar palsy, and her mood is labile. Patient denies any numbness or slurring of speech during interview but earlier this morning nursing staff feels her sppech was not that clear and she complained of right sided numbness of face. She feels much better in terms of dizziness and nausea, she could not describes dizziness more in detail. Patient had mri done on march 15 and showed sub acute stroke. She is on aspirin and statin and antihypertensive medicaiton and her bp has been very high in hospital. 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 Cardio/Vascular: Yes: HTN, Hyperlipdemia Endocrine: Yes: Diabetes Mellitus - Alcohol/Substance Use Hx Alcohol Use: No History of Substance Use: reports: None - Smoking History Smoking history: Never smoked Have you smoked in the past 12 months: No Home Medications - Allergies Allergies/Adverse Reactions: Allergies Allergy/AdvReac Type Severity Reaction Status Date / Time No Known Allergies Allergy Verified 04/02/17 00:47 - Home Medications Home Medications: Ambulatory Orders Amlodipine Besylate [Norvasc -] 10 mg PO DAILY 02/19/15 Canagliflozin [Invokana] 100 mg PO DAILY 02/19/15 Glimepiride 4 mg PO BID 02/19/15 Simvastatin [Zocor -] 20 mg PO HS 02/19/15 Sitagliptin Phosphate [Januvia] 100 mg PO DAILY 02/19/15 Aspirin Coated [Ecotrin -] 81 mg PO DAILY #30 tablet.ec 02/25/15 Atorvastatin Ca [Lipitor] 10 mg PO HS #30 tablet 02/25/15 Clopidogrel Bisulfate [Plavix -] 75 mg PO DAILY #30 tablet 02/25/15 Pantoprazole Sodium [Protonix -] 40 mg PO DAILY #30 tablet.ec 02/25/15
--- NOTE | 2017-04-03 08:42 | CONSULT ---
Consult - text type - Consultation Consultation Note: HISTORY OF PRESENT ILLNESS: This is an 81 year old female with a a past medical history of mult CVAs with residual RUE weakness, HTN, HLD, DM who presented to the ED after awakening at 1030pm "not feeling well". Her daughter reported she was nauseas, dizzy, diaphoretic, vomiting, passing gas, and wet her bed. Hematuria was noted as well. ED provider noted a 5 second episode of shaking of right upper extremity with right sided gaze but without postictal period. Denies any cardiac symptoms. 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 R bunionectomy 2nd [facility] surgery 10/2016 Social History: Smoking: unknown Alcohol: unknown Drugs: unknown Family History: unknown Allergies No Known Allergies Allergy (Verified 04/02/17 00:47) HOME MEDICATIONS: 3 Medication Instructions Recorded Amlodipine Besylate [Norvasc -] 10 mg PO DAILY 02/19/15 Canagliflozin [Invokana] 100 mg PO DAILY 02/19/15 Glimepiride 4 mg PO BID 02/19/15 Simvastatin [Zocor -] 20 mg PO HS 02/19/15 Sitagliptin Phosphate [Januvia] 100 mg PO DAILY 02/19/15 Aspirin Coated [Ecotrin -] 81 mg PO DAILY #30 tablet.ec 02/25/15 Atorvastatin Ca [Lipitor] 10 mg PO HS #30 tablet 02/25/15 Clopidogrel Bisulfate [Plavix -] 75 mg PO DAILY #30 tablet 02/25/15 Pantoprazole Sodium [Protonix -] 40 mg PO DAILY #30 tablet.ec 02/25/15 PE: vitals stable normal cardio-pulmonary exam abdomen soft no leg edema Impression: Stable from cardiac standpoint BP normal Rec: EKG Echocardiogram eval to continue
--- NOTE | 2017-04-03 09:13 | CONSULT ---
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 Cardiovascular: Yes: HTN, Hyperlipdemia Endocrine: Yes: Diabetes Mellitus - Smoking History Smoking history: Never smoked Have you smoked in the past 12 months: No - Alcohol/Substance Use Hx Alcohol Use: No History of Substance Use: reports: None - Social History History of Recent Travel: No History - Admission Reason For Visit: RIGHT-SIDED WEAKNESS, LEUKOCYTOSIS - Hearing Hearing: Normal Speech Evaluation - Communication Primary Language: SWEDISH Secondary Language: [place] ISLAND[place] Communication: Yes: Simple Responses (WFL), Language Barrier (Understands Persian directive with visual cues) Oral Expression Ability: Yes: Mild Impairment (Secondary to language barrier) - Speech Production Apraxia: Yes Able to Make Needs Known: Yes: Mildly Impaired Intelligibility: Yes: WNL - Speech Characteristics Voice Loudness: Normal Voice Pitch: Yes: Normal Voice Phonatory-based Quality: Yes: Shrill Speech Pattern: Normal Nasal Resonance: Normal Articulation: Yes: Precise Rate of Speech: Intact - Language/Auditory Comprehension Follows: Yes: 1 Stage Simple Commands (WFL), 2 Stage Simple Commands (WFL with visual cues) Observation: Able to respond to yes/no queries: Yes, Yes/No Confusion: No, Comprehends Conversational Speech: Yes (simple, errors w 2 stage commands), Benefits from Slow Speech: No, Benefits from Repetiton: No, Benefits from Increased Volume of Speech: No - Language/Verbal Expression Aphasia: Yes: Nonfluent, Anomia, Impaired Repetition, Paraphrasic Errors, Neologisms, Apraxia, Sound Errors Able to Communicate Wants and Needs: Yes: Mildly Impaired Functional Communication Status: Yes: Mildly Impaired Aware of Errors: Yes Attempts to Correct Errors: Yes Use of Gestures: Yes Written Expression: not examined Oral Expression: WFL for her environment Reading Comprehension: not examined Calculations: not examined Attention: Yes: Minimal Impairment - Memory/Perception oysterman Memory: Yes: Mildly Impaired Short Term Memory: Yes: Mildly Impaired - Swallow Evaluation/Bedside Assessment Current Nutritional Intake: Regular (Diabetic diet), Thin Liquids Oral Secretions: Yes: WFL Tracheostomy Present: No Patient on Ventilator: No Dentition: Yes: Adequate Facial Symmetry at Rest: Symmetrical Facial Symmetry on Retraction: Symmetrical Facial Movement: Controlled Sensation: Normal Facial Comment: WFL for speech and swallowing purposes. Jaw Position: Closed at Rest Against Resistance Opening: Normal Against Resistance Closing: Normal Pucker Lips: Normal Smile: Normal Lips, Comment: WFL for speech and swallowing purposes. Lingual Movement: Normal Lingual Speed of Movement: Normal Lingual Movement Strgth Against Opposition: Normal Lingual Movement Characteristics: Normal Lingual Comment: WFL for speech and swallowing purposes. Soft Palate Description: Normal Color Hard Palate Description: Normal Color Gag Reflex: Strong Bite Reflex: Present Velopharyngeal Movement: Normal Laryngeal Elevation: WFL Laryngeal Movement: Able to Palpate Needs Assistance: No Rate of Intake: WFL Bolus Size: WFL Labial Seal: WFL Chewing: WFL Oral Prep Time: WFL A-P Transit: WFL Coughing/Throat Clear: No Change in Voice: No Other Findings/Remarks: 81 yo female seen at bedside for swallow eval to r/o dysphagia. Pt is verbal, A &Ox2 cooperative. PMHX includes CVA, HTN, HLD, DM admitted to [facility] for nausea and dizziness. Current diet: regular diabetic solids with thin liquids. Pt. given po trials of puree, regular solids with minimal assistance revealed good acceptance, adequate mastication, bolus formation and A-P transport. Pharyngeal swallows appears timely with no coughing or changes in respiration or voicing after the swallow. Thin liquid trials with minimal assistance via cup and straw were unremarkable for dysphagia at this time. Recommendations - Speech Evaluation, Impression/Plan Impression: 81 year old female present with no s/s for dysphagia for purees, mech soft, regular solids and thin liquids at this time. Pt's primary language is Occitan and presents with mild language barrier but is able to follow directives with visual cues. Urban And Regional Planner Goals: tolerate the least restrictive diet without s/s of aspiration. Short Term Goals: tolerate regular diabetic low NA solids and thin liquids without s/s of dysphagia and / or aspiration. - Dysphagia Impressions/Plan Swallowing Skills: WFL Dysphagia Impressions: No Impairment Dysphagia Treatment Plan: Small Bites, Safe Rate, 1/2 tsp. at a time, Elevate HOB during feed - Recommendations Diet Consistency: Regular Medication Administration: Whole with water (Pt does not like applesauce.) Liquids: Thin Liquids
[2017-04-03] MEDS ORDERED: VANCOMYCIN 1,250 MG in DEXTROSE 5%-WATER - 250 ML IVPB ONE (09:44)
[2017-04-03] MEDS ORDERED: ASPIRIN COATED 81 MG TABLET.EC PO SCH (10:00)
[2017-04-03] MEDS: HEPARIN NA (PORCINE) 5,000 UNITS/ML 1ML VIAL SQ SCH ×2 (10:58→22:25)
[2017-04-03] MEDS: CLOPIDOGREL BISULFATE 75 MG TABLET (FP) PO SCH (10:58)
[2017-04-03] MEDS: CALCIUM (OYSTER SHELL) 500 MG TABLET (FP) PO SCH ×2 (10:58→22:25)
[2017-04-03] MEDS: LACTOBACILLUS ACIDOPHILUS 1 EACH TAB (FP) PO SCH ×2 (10:58→22:25)
[2017-04-03] MEDS: PANTOPRAZOLE 40 MG TABLET (FP) PO SCH (10:58)
[2017-04-03] MEDS: amLODIPine BESYLATE 10 MG TABLET (FP) PO SCH (10:58)
[2017-04-03] MEDS: CHOLECALCIFEROL (VITAMIN D3) 1,000 UNIT TABLET (FP) PO SCH (10:58)
--- NOTE | 2017-04-03 12:21 | PN ---
Progress Note (short form) - Note Progress Note: Seen in follow up. No new complaints. Meds reviewed. Current Medications Generic Name Dose Route Start Last Admin Trade Name Mike PRN Reason Stop Dose Admin Amlodipine Besylate 10 mg 04/02/17 10:00 04/03/17 10:58 Norvasc - PO 10 mg DAILY JUSTEN Administration Atorvastatin Calcium 10 mg 04/02/17 22:00 04/02/17 22:58 Lipitor - PO 10 mg HS JUSTEN Administration Calcium Carbonate 500 mg 04/02/17 22:00 04/03/17 10:58 Os-Alfonso 500mg - PO 500 mg BID JUSTEN Administration Cholecalciferol 5,000 unit 04/03/17 10:00 04/03/17 10:58 Vitamin D3 - PO 5,000 unit DAILY JUSTEN Administration Clopidogrel Bisulfate 75 mg 04/03/17 10:00 04/03/17 10:58 Plavix - PO 75 mg DAILY JUSTEN Administration Heparin Sodium (Porcine) 5,000 unit 04/02/17 10:00 04/03/17 10:58 Heparin - SQ 5,000 unit BID JUSTEN Administration Vancomycin HCl 1,000 mg/ 250 mls @ 250 mls/hr 04/02/17 10:00 04/02/17 10:43 Dextrose IVPB Not Given BID [facility] Protocol Insulin Aspart 1 vial 04/02/17 07:45 04/03/17 12:00 Novolog Vial Sliding Scale - SQ Not Given ACHS [facility] Protocol Lactobacillus Acidophilus 1 tab 04/02/17 22:00 04/03/17 10:58 Bacid - PO 1 tab BID JUSTEN Administration Pantoprazole Sodium 40 mg 04/02/17 10:00 04/03/17 10:58 Protonix - PO 40 mg DAILY JUSTEN Administration Sitagliptin Phosphate 100 mg 04/03/17 07:00 04/03/17 06:17 Januvia - PO 100 mg DAILY@0700 JUSTEN Administration On exam: General: In no acute distress. Extremities: No pallor or icterus, no pedal edema. Neuro: Alert, oriented, non-focal, interactive. Assessment. Long-standing stable erythrocytosis. 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 Never-smoker, with no documented cardiac or pulmonary disease. Ischemic cerebral vascular disease. Established role for phlebotomy in JAK2 positive P. vera (with target Hct <42-25 %), but utility in this context is nor clear. Agree with anti-platelet agent(s) as per neurology. Would check epo level - if low may be a role for phlebotomy/cytoreduction.
--- NOTE | 2017-04-03 12:29 | PN ---
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 She also have history of HTN, HLD and Diabetes. She came to hospital for nausea and dizziness. History was taken through help of renal medicine specialist ( nursing home assistant administrator at floor) Patient also have history of pseudobulbar palsy, and her mood is labile. Patient denies any numbness or slurring of speech during interview but earlier this morning nursing staff feels her sppech was not that clear and she complained of right sided numbness of face. She feels much better in terms of dizziness and nausea, she could not describes dizziness more in detail. Patient had mri done on march 15 and showed sub acute stroke. She is on aspirin and statin and antihypertensive medicaiton and her bp has been very high in hospital. she was examined and right lower extremity is normal strength . she denies any dizziness and no more seizure. PT tries to walk and she has some difficulty walking , and felt right lower leg was weak. Home Medications Amlodipine Besylate [Norvasc -] 10 mg PO DAILY 02/19/15 Canagliflozin [Invokana] 100 mg PO DAILY 02/19/15 Glimepiride 4 mg PO BID 02/19/15 Simvastatin [Zocor -] 20 mg PO HS 02/19/15 Sitagliptin Phosphate [Januvia] 100 mg PO DAILY 02/19/15 Aspirin Coated [Ecotrin -] 81 mg PO DAILY #30 tablet.ec 02/25/15 Atorvastatin Ca [Lipitor] 10 mg PO HS #30 tablet 02/25/15 Clopidogrel Bisulfate [Plavix -] 75 mg PO DAILY #30 tablet 02/25/15 Pantoprazole Sodium [Protonix -] 40 mg PO DAILY #30 tablet.ec 02/25/15 ROS reviewed in chart Neurological Examination Patinet is alert and follow command no acute distress eomi and no facial asymmetyr and pupils are reactive there is mild right upper extremity weakness and shoulder movement is restricted due to frozen shoulder left upper extremity and both lower extremity is nromal there is no facial sensory loss and sensation is normal CT unremarkable mri of brain no acute stroke Assessment-- 81 year old female history of dm, htn hlp and stroke in past with frozen shoulder and right sided weakness, her symptoms ( slurring of speech, numbness ) has resolved, mri is normal, most likley she has tia Plan continue lipitor and plavix at current dos e PT for strengthening and consider short term rehab eeg if she stays at hospital
--- NOTE | 2017-04-03 13:30 | EKG ---
Test Reason : Blood Pressure : / mmHG Vent. Rate : 067 BPM Atrial Rate : 067 BPM P-R Int : 256 ms QRS Dur : 138 ms QT Int : 474 ms P-R-T Axes : 024 118 010 degrees QTc Int : 500 ms SINUS RHYTHM WITH 1ST DEGREE A-V BLOCK RIGHT BUNDLE BRANCH BLOCK LATERAL INFARCT (CITED ON OR BEFORE 19-FEB-2015) POSSIBLE INFERIOR INFARCT (CITED ON OR BEFORE 19-FEB-2015) ABNORMAL ECG WHEN COMPARED WITH ECG OF 02-APR-2017 01:39, IN INTERVAL HAS INCREASED QUESTIONABLE CHANGE IN INITIAL FORCES OF LATERAL LEADS QT HAS SHORTENED Confirmed by ELVIS COLBY, JUAN A ([id number]) on 04/03/2017 1:29:47 PM Referred By: CHASTITY LOPEZ Confirmed By:JUAN A LEAL MD
--- NOTE | 2017-04-03 14:28 | CONSULT ---
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 She came to hospital for nausea and dizziness. 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 She feels much better in terms of dizziness and nausea, she could not describes dizziness more in detail. Patient had mri done on march 15 and showed sub acute stroke. She is on aspirin and statin and antihypertensive medicaiton and her bp has been very high in hospital. She feels she is back to her baseline was called to evaluate the patient because she has uti and also gm positive bacteremia. 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 Cardio/Vascular: Yes: HTN, Hyperlipdemia Endocrine: Yes: Diabetes Mellitus - Alcohol/Substance Use Hx Alcohol Use: No History of Substance Use: reports: None - Smoking History Smoking history: Never smoked Have you smoked in the past 12 months: No - Social History History of Recent Travel: No Home Medications - Allergies Allergies/Adverse Reactions: Allergies Allergy/AdvReac Type Severity Reaction Status Date / Time No Known Allergies Allergy Verified 04/02/17 00:47 - Home Medications Home Medications: Ambulatory Orders Amlodipine Besylate [Norvasc -] 10 mg PO DAILY 04/02/17 Calcium Carbonate [Calcium] 500 mg PO BID 04/02/17 Canagliflozin [Invokana] 100 mg PO DAILY 04/02/17 Cholecalciferol (Vitamin D3) [Vitamin D3 -] 5,000 unit PO DAILY 04/02/17 Clopidogrel Bisulfate [Plavix -] 75 mg PO DAILY 04/02/17 Glimepiride [Amaryl -] 2 mg PO BID 04/02/17 Glucosamine Sulfate Dipot Chlr [Glucosamine] 1,000 mg PO BID 04/02/17 L.acidoph,Paracasei, B.lactis [Probiotic] 1 each PO BID 04/02/17 Simvastatin [Zocor -] 20 mg PO HS 04/02/17 Sitagliptin Phosphate [Januvia] 50 mg PO DAILY 04/02/17 Review of Systems - Review of Systems Constitutional: reports: Weakness Eyes: reports: No Symptoms HENT: reports: No Symptoms Neck: reports: No Symptoms Cardiovascular: reports: No Symptoms Respiratory: reports: No Symptoms Gastrointestinal: reports: Nausea Genitourinary: reports: No Symptoms Musculoskeletal: reports: No Symptoms Integumentary: reports: No Symptoms Neurological: reports: Other (weakness on the rt side) Hematology/Lymphatic: reports: No Symptoms Psychiatric: reports: No Symptoms Physical Exam Vital Signs: Vital Signs Temperature 97.6 F 04/03/17 02:00 Pulse Rate 71 04/03/17 09:30 Respiratory Rate 20 04/03/17 06:00 Blood Pressure 113/55 04/03/17 06:00 O2 Sat by Pulse Oximetry (%) 97 04/03/17 09:30 Constitutional: Yes: No Distress, Calm Eyes: Yes: Conjunctiva Clear HENT: Yes: Atraumatic Neck: Yes: Supple, Trachea Midline Respiratory: Yes: Regular, CTA Bilaterally Gastrointestinal: Yes: Normal Bowel Sounds, Soft Musculoskeletal: Yes: Other Extremities: Yes: Other (rt side weakness) Neurological: Yes: Alert, Oriented, Other (rt sided weakness) Labs: CBC, BMP 04/03/17 05:35 04/03/17 05:35 Imaging - Results Chest X-ray: Report Reviewed, Image Reviewed Ultrasound: Report Reviewed, Image Reviewed MRI: Report Reviewed, Image Reviewed Other: Report Reviewed, Image Reviewed Assessment/Plan 81yF with PMH mult CVA, HTN, HLD, DM leukocytosis DM HTN HLD uti gm positive bacteremia plan will start patient on abx close monitoring repeat blood cx on tuesday monitor for any hematuria again rest as per primary team follow wbc await finalization of the cx reports
--- NOTE | 2017-04-03 16:54 | PN ---
Physical Exam: SUBJECTIVE: Patient seen and examined at the bedside with her daughter and family in attendance. Family states that her mother looks much better since admission. OBJECTIVE: Less right sided facial droop, speech clearer. Patient overall looks better Abdominal CT negative, no further hematuria noted +blood and +urine cultures pending organism Repeat blood culture sent Hematuria resolved, Plavix restarted Vital Signs Period Temp Pulse Resp BP Sys/Haney Pulse Ox Last 24 Hr 97.3 F-98.5 F 67-84 18-20 98-139/54-79 97 GENERAL: The patient is awake, alert, less anxious, more cooperative HEAD: Normal with no signs of trauma, less right sided facial droop noted, speech improvement: less slurring EYES: pupils reactive to light, right pupil thought to be less reactive than left ENT: Ears normal, nares patent, oropharynx clear without exudates, moist mucous membranes. NECK: Trachea midline, full range of motion, supple. LUNGS: Breath sounds equal, clear to auscultation bilaterally HEART: Regular rate and rhythm ABDOMEN: Soft, non-tender, non-distended, normoactive bowel sounds, no guarding , no rebound, no hepatosplenomegaly, no masses. EXTREMITIES: no edema. SKIN: Warm, dry, normal turgor, no rashes or lesions noted Laboratory Results - last 24 hr 04/02/17 04/02/17 04/02/17 12:15 17:12 23:01 WBC RBC Hgb Hct MCV MCH MCHC RDW Plt Count MPV Neutrophils % Lymphocytes % Monocytes % Eosinophils % Basophils % Sodium Potassium Chloride Carbon Dioxide Anion Gap BUN Creatinine POC Glucometer 137 120 Random Glucose Calcium Phosphorus Magnesium Urine Color Ltyellow Urine Appearance Clear Urine pH 7.0 Ur Specific [place] 1.015 Urine Protein Negative Urine Glucose (UA) 3+ H Urine Ketones Trace H Urine Blood 2+ H Urine Nitrite Negative Urine Bilirubin Negative Urine Urobilinogen Negative Ur Leukocyte Esterase Negative Urine RBC 58 Urine WBC 126 04/03/17 04/03/17 04/03/17 05:35 05:35 05:35 WBC 8.6 RBC 5.62 H Hgb 15.5 H Hct 45.1 MCV 80.3 MCH 27.5 MCHC 34.3 RDW 14.4 Plt Count 164 MPV 9.2 Neutrophils % 68.5 Lymphocytes % 19.5 D Monocytes % 9.6 D Eosinophils % 2.1 D Basophils % 0.3 Sodium 143 Potassium 3.8 Chloride 112 H Carbon Dioxide 24 Anion Gap 7 L BUN 15 Creatinine 0.7 POC Glucometer Random Glucose 140 H D Calcium 9.2 Phosphorus 2.5 Cancelled Magnesium 2.4 Cancelled Urine Color Urine Appearance Urine pH Ur Specific [place] Urine Protein Urine Glucose (UA) Urine Ketones Urine Blood Urine Nitrite Urine Bilirubin Urine Urobilinogen Ur Leukocyte Esterase Urine RBC Urine WBC 04/03/17 06:09 WBC RBC Hgb Hct MCV MCH MCHC RDW Plt Count MPV Neutrophils % Lymphocytes % Monocytes % Eosinophils % Basophils % Sodium Potassium Chloride Carbon Dioxide Anion Gap BUN Creatinine POC Glucometer 125 Random Glucose Calcium Phosphorus Magnesium Urine Color Urine Appearance Urine pH Ur Specific [place] Urine Protein Urine Glucose (UA) Urine Ketones Urine Blood Urine Nitrite Urine Bilirubin Urine Urobilinogen Ur Leukocyte Esterase Urine RBC Urine WBC Active Medications Generic Name Dose Route Start Last Admin Trade Name Freq PRN Reason Stop Dose Admin Amlodipine Besylate 10 mg 04/02/17 10:00 04/03/17 10:58 Norvasc - PO 10 mg DAILY JUST[facility] Administration Atorvastatin Calcium 10 mg 04/02/17 22:00 04/02/17 22:58 Lipitor - PO 10 mg HS JUSTEN Administration Calcium Carbonate 500 mg 04/02/17 22:00 04/03/17 10:58 Os-Alfonso 500mg - PO 500 mg BID JUSTEN Administration Cholecalciferol 5,000 unit 04/03/17 10:00 04/03/17 10:58 Vitamin D3 - PO 5,000 unit DAILY [facility] Administration Clopidogrel Bisulfate 75 mg 04/03/17 10:00 04/03/17 10:58 Plavix - PO 75 mg DAILY [facility] Administration Heparin Sodium (Porcine) 5,000 unit 04/02/17 10:00 04/03/17 10:58 Heparin - SQ 5,000 unit BID JUST[facility] Administration Piperacillin Sod/Tazobactam Sod 50 mls @ 100 mls/hr 04/03/17 14:30 Zosyn 3.375gm Ivpb (Pre-Docked) IVPB Q8H-IV [facility] Protocol Vancomycin HCl 1,250 mg/ 250 mls @ 166.667 mls/hr 04/04/17 10:00 Dextrose IVPB DAILY [facility] Protocol Insulin Aspart 1 vial 04/02/17 07:45 04/03/17 12:00 Novolog Vial Sliding Scale - SQ Not Given ACHS [facility] Protocol Lactobacillus Acidophilus 1 tab 04/02/17 22:00 04/03/17 10:58 Bacid - PO 1 tab BID JUST[facility] Administration Pantoprazole Sodium 40 mg 04/02/17 10:00 04/03/17 10:58 Protonix - PO 40 mg DAILY [facility] Administration Sitagliptin Phosphate 100 mg 04/03/17 07:00 04/03/17 06:17 Januvia - PO 100 mg DAILY@0700 JUST[facility] Administration ASSESSMENT/PLAN: Patient is an 81 year old female with a significant past medical history of 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 She presented to the ED on 04/02/2017 after her daughter reported that patient was home asleep and woke up reporting not feeling well. As per ED notes, patient was reportedly fine when she went to bed but awoke later with complaints of feeling nausous, dizzy, was diaphoretic, vomiting with urinary incontinence. Hematuria was noted as well. In the ED she had an episode of a 5 second episode of shaking of right upper extremity with right sided gaze but without postictal period. Patient had a recent admission at [place] and was evaluated for polycythemia vera and was seen by Dr. Welch. Patient hmg/hct remain similar to previous admissions, therefore hematology as been re-consulted. During today's exam, patient again became diophoretic, with an episode of hematuria. She also complained of lower abdominal pain and nausea. Imaging: CT head (stroke): No significant interval change or gross acute intracranial pathology identified. Abdomen/CT/Pelvis: 1.4 cm focal low attenuation density in the right hepatic lobe, non specific. +post cholecystectomy surgical metallic clips present Carotid Doppler 04/03/2017: int. thickening small plaques at the common carotid bifurcation - no hemodynamic stenosis noted Brain MRI without any acute intracranial pathology Neurology: Rule out CVA/TIA - acute A/P: CT head (stroke): No significant interval change or gross acute intracranial pathology identified. Given ASA 324 on admission and on Plavix home dose BP elevated (permissive hypertension?), cardiology consult On Norvasc 10mg daily On Simvastatin home dose, family and patient refusing Lipitor 40mg as it causes patient symptoms such as muscle fatigue Brain MRI reviewed Seizures A/P: EEG ordered by neuro Likely seizure episode witnessed in ED without postictal period Neuro following, EEG in a.m. Cardiology: Hypertension - resolved, now with episodes of hypotension A/P: Monitor BP, Cardiology notes reviewed Hematology: Erythrocytosis - chronic A/P: Hematology consulted, notes reviewed JAK2 negative 2014 Monitor CBC, Epo levels pending ID: Leukocytosis - now resolved, monitor A/P: +blood culture, contaminant? repeated blood cultures +urine culture, awaiting sensitivities ID consulted as pt is elderly and has leukocytosis with diaphorectic episodes On Zosyn and Vanco as per ID Endocrine: Diabetes Mellitus A/P: Monitor BGMs tid/ac/hs On Novolog F.E.N. Fluids: tolerating PO Electrolytes: monitor Nutrition: diabetic diet Prophylaxis: GI: Protonix IVPB DVT: SCDs, had recent episode of hematuria, will hold AC Disposition: Will need STR, spoke to family who is in agreement. Full Code. Visit type - Emergency Visit Emergency Visit: Yes ED Registration Date: 04/02/17 Care time: The patient presented to the Emergency Department on the above date and was hospitalized for further evaluation of their emergent condition. - New Patient This patient is new to me today: No - Critical Care Critical Care patient: No - Discharge Referral Referred to [facility] Med P.C.: No
[2017-04-03] MEDS: PIPERACILLIN/TAZOB 3.375 GM 50 ML IVPB SCH ×2 (17:07→18:18)
[2017-04-03] MEDS ORDERED: VANCOMYCIN 1,000 MG in DEXTROSE 5%-WATER - 250 ML IVPB SCH (22:00)
[2017-04-03] MEDS ORDERED: ATORVASTATIN CA 40 MG TABLET (FP) PO SCH (22:00)
[2017-04-04] MEDS: PIPERACILLIN/TAZOB 3.375 GM 50 ML IVPB SCH ×2 (01:37→10:50)
[2017-04-04] MEDS: sitaGLIPtin PHOSPHATE 100 MG TABLET (FP) PO SCH (06:24)
[2017-04-04] MEDS: INSULIN SLIDING SCALE (NOVOLOG) 1 VIAL SQ SCH ×4 (06:24→21:59)
[2017-04-04] MEDS ORDERED: PT OWN MED DRAWER 7, Y5N ONE (08:05)
[2017-04-04 08:09] LABS: BASOPHIL 0.5 % (0-2.0); MCH 27.4 pg (25.7-33.7); MCHC 34.2 g/dl (32.0-36.0); NEUTROPHILS 64.9 % (42.8-82.8); PLATELET COUNT 165 K/MM3 (134-434); RDW 14.4 % (11.6-15.6); WHITE BLOOD COUNT 7.4 K/mm3 (4.0-10.0)
[2017-04-04 08:35] LABS: ALBUMIN 3.8 g/dl (3.4-5.0); ANION GAP 8 (8-16); BILIRUBIN,TOTAL 1.3 mg/dL (0.2-1.0); CO2 26 mmol/L (21-32); CREATININE 0.8 mg/dL (0.55-1.02); GLUCOSE,RANDOM 130 mg/dL (74-106); SGOT/AST 19 U/L (15-37); SGPT/ALT 30 U/L (12-78)
[2017-04-04 08:36] LABS: ALK PHOS 87 U/L (45-117); TOT PROT 7.1 g/dl (6.4-8.2)
--- NOTE | 2017-04-04 09:02 | PN ---
Progress Note (short form) - Note Progress Note: Subjective: The patient was seen and examined at the bedside, she has no complaints at this time. She reports feeling better and better every day. She states her right sided weakness is residual from her last CVA 2 years ago Current Medications Generic Name Dose Route Start Last Admin Trade Name Mike PRN Reason Stop Dose Admin Amlodipine Besylate 10 mg 04/02/17 10:00 04/03/17 10:58 Norvasc - PO 10 mg DAILY [facility] Administration Atorvastatin Calcium 40 mg 04/03/17 22:00 04/03/17 22:25 Lipitor - PO 40 mg HS JUSTEN Administration Calcium Carbonate 500 mg 04/02/17 22:00 04/03/17 22:25 Os-Alfonso 500mg - PO 500 mg BID JUST[facility] Administration Cholecalciferol 5,000 unit 04/03/17 10:00 04/03/17 10:58 Vitamin D3 - PO 5,000 unit DAILY [facility] Administration Clopidogrel Bisulfate 75 mg 04/03/17 10:00 04/03/17 10:58 Plavix - PO 75 mg DAILY [facility] Administration Heparin Sodium (Porcine) 5,000 unit 04/02/17 10:00 04/03/17 22:25 Heparin - SQ 5,000 unit BID [facility] Administration Piperacillin Sod/Tazobactam Sod 50 mls @ 100 mls/hr 04/03/17 14:30 04/04/17 01: 37 Zosyn 3.375gm Ivpb (Pre-Docked) IVPB 100 mls/hr Q8H-IV [facility] Administration Protocol Vancomycin HCl 1,250 mg/ 250 mls @ 166.667 mls/hr 04/04/17 10:00 Dextrose IVPB DAILY [facility] Protocol Insulin Aspart 1 vial 04/02/17 07:45 04/04/17 06:24 Novolog Vial Sliding Scale - SQ Not Given ACHS [facility] Protocol Lactobacillus Acidophilus 1 tab 04/02/17 22:00 04/03/17 22:25 Bacid - PO 1 tab BID [facility] Administration Pantoprazole Sodium 40 mg 04/02/17 10:00 04/03/17 10:58 Protonix - PO 40 mg DAILY [facility] Administration Sitagliptin Phosphate 100 mg 04/03/17 07:00 04/04/17 06:24 Januvia - PO 100 mg DAILY@0700 JUST[facility] Administration Objective: Vital Signs Period Temp Pulse Resp BP Sys/Haney Pulse Ox Last 24 Hr 97.8 F-98.7 F 61-79 20-20 101-135/59-69 96-98 Physical Exam: General: NAD, A&Ox3 Lungs: CTA bilaterally Heart: RRR, S1S2 Abd: Soft, non-tender, non-distended. Normoactive bowel sounds Ext: Warm, well-perfused. 2+ DP/PT bilaterally Neuro: RUE/RLQ 4/5 muscle strength. LUE/LLE 5/5 muscle strength. Decrease ROM in right shoulder with active and passive ROM CBCD WBC 7.4 K/mm3 (4.0-10.0) 04/04/17 07:30 RBC 5.99 M/mm3 (3.60-5.2) H 04/04/17 07:30 Hgb 16.4 GM/dL (10.7-15.3) H 04/04/17 07:30 Hct 47.9 % (32.4-45.2) H 04/04/17 07:30 MCV 80.0 fl (80-96) 04/04/17 07:30 MCHC 34.2 g/dl (32.0-36.0) 04/04/17 07:30 RDW 14.4 % (11.6-15.6) 04/04/17 07:30 Plt Count 165 K/MM3 (134-434) 04/04/17 07:30 MPV 9.0 fl (7.5-11.1) 04/04/17 07:30 CMP Sodium 142 mmol/L (136-145) 04/04/17 07:30 Potassium 3.8 mmol/L (3.5-5.1) 04/04/17 07:30 Chloride 108 mmol/L (98-107) H 04/04/17 07:30 Carbon Dioxide 26 mmol/L (21-32) 04/04/17 07:30 Anion Gap 8 (8-16) 04/04/17 07:30 BUN 15 mg/dL (7-18) 04/04/17 07:30 Creatinine 0.8 mg/dL (0.55-1.02) 04/04/17 07:30 Creat Clearance w eGFR > 60 (>60) 04/04/17 07:30 Random Glucose 130 mg/dL (74-106) H 04/04/17 07:30 Calcium 9.0 mg/dL (8.5-10.1) 04/04/17 07:30 Total Bilirubin 1.3 mg/dL (0.2-1.0) H 04/04/17 07:30 AST 19 U/L (15-37) D 04/04/17 07:30 ALT 30 U/L (12-78) 04/04/17 07:30 Alkaline Phosphatase 87 U/L (45-117) 04/04/17 07:30 Total Protein 7.1 g/dl (6.4-8.2) 04/04/17 07:30 Albumin 3.8 g/dl (3.4-5.0) 04/04/17 07:30 CARDIAC ENZYMES Creatine Kinase 87 IU/L (26-192) 04/02/17 01:40 Troponin I < 0.02 ng/ml (0.00-0.05) 04/02/17 01:40 Microbiology 04/03/17 08:35 Blood - Peripheral Venous Blood Culture - Preliminary NO GROWTH OBTAINED AFTER 24 HOURS, INCUBATION TO CONTINUE FOR 4 DAYS. 04/03/17 08:40 Blood - Peripheral Venous Blood Culture - Preliminary NO GROWTH OBTAINED AFTER 24 HOURS, INCUBATION TO CONTINUE FOR 4 DAYS. 04/02/17 05:19 Blood - Peripheral Venous Blood Culture - Preliminary NO GROWTH OBTAINED AFTER 48 HOURS, INCUBATION TO CONTINUE FOR 3 DAYS. 04/02/17 12:15 Urine - Urine Clean Catch Urine Culture - Preliminary Lactose Fermenting Neg Bacilli 04/02/17 04:38 Urine - Urine - Catheterized Urine Culture - Preliminary Lactose Fermenting Neg Bacilli 04/02/17 05:19 Blood - Peripheral Venous Blood Culture - Preliminary Pending Organism Imaging: CT head (stroke): No significant interval change or gross acute intracranial pathology identified. Abdomen/CT/Pelvis: 1.4 cm focal low attenuation density in the right hepatic lobe, non specific. +post cholecystectomy surgical metallic clips present Carotid Doppler 04/03/2017: int. 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 Plan: 1) Neuro: CVA vs. TIA - CVA ruled out as MRI showed no acute intracranial pathology - Continue home plavix - Continue atorvastatin - Patient reports right sided weakness is at her baseline Seizure activity - Witnessed seizure episode during admission - EEG today - Appreciate neuro consult 2) ID: UTI, bacteremia? - Urine culture x2 with lactose fermenting negative bacilli - Blood culture with prelim positive pending organism from 04/02 - F/u final c/s - Continue Vanco and Zosyn per ID - Appreciate ID consult 3) Cardiology: HTN - Resolved - Appreciate cardiology consult 4) Hematology: Chronic erythrocytosis - F/u Epo level today - JAK2 negative 2014 - Appreciate hematology consult 5) Endocrine: DM - BGM ACHS - ISS ACHS 6) F/E/N: - Monitor electrolytes - Diabetic/low sodium diet 7) Prophylaxis: - SCDs bilaterally - No chemical dvt prophylaxis as the patient had episodes of hematuria 8) Dispo: - Requires continued inpatient care CODE STATUS: FULL CODE Visit type - Emergency Visit Emergency Visit: Yes ED Registration Date: 04/02/17 Care time: The patient presented to the Emergency Department on the above date and was hospitalized for further evaluation of their emergent condition. - New Patient This patient is new to me today: Yes Date on this admission: 04/04/17 - Critical Care Critical Care patient: No
[2017-04-04] MEDS ORDERED: VANCOMYCIN 1,250 MG in DEXTROSE 5%-WATER - 250 ML IVPB SCH (10:00)
[2017-04-04] MEDS: CHOLECALCIFEROL (VITAMIN D3) 1,000 UNIT TABLET (FP) PO SCH (10:50)
[2017-04-04] MEDS: CALCIUM (OYSTER SHELL) 500 MG TABLET (FP) PO SCH ×2 (10:50→21:49)
[2017-04-04] MEDS: LACTOBACILLUS ACIDOPHILUS 1 EACH TAB (FP) PO SCH ×2 (10:50→21:49)
[2017-04-04] MEDS: PANTOPRAZOLE 40 MG TABLET (FP) PO SCH (10:50)
[2017-04-04] MEDS: CLOPIDOGREL BISULFATE 75 MG TABLET (FP) PO SCH (10:50)
[2017-04-04] MEDS: HEPARIN NA (PORCINE) 5,000 UNITS/ML 1ML VIAL SQ SCH ×2 (10:51→21:49)
[2017-04-04] MEDS: amLODIPine BESYLATE 10 MG TABLET (FP) PO SCH (10:51)
--- NOTE | 2017-04-04 12:46 | EKG ---
Test Reason : Blood Pressure : / mmHG Vent. Rate : 096 BPM Atrial Rate : 096 BPM P-R Int : 000 ms QRS Dur : 142 ms QT Int : 452 ms P-R-T Axes : 000 122 028 degrees QTc Int : 571 ms NORMAL SINUS RHYTHM WITH SINUS ARRHYTHMIA RIGHT BUNDLE BRANCH BLOCK LATERAL INFARCT (CITED ON OR BEFORE 19-FEB-2015) CANNOT RULE OUT INFERIOR INFARCT (CITED ON OR BEFORE 19-FEB-2015) ABNORMAL ECG WHEN COMPARED WITH ECG OF 19-FEB-2015 18:25, VENT. RATE HAS INCREASED Confirmed by CAITY CROFT MD ([id number]) on 04/04/2017 12:45:49 PM Referred By: Confirmed By:CAITY CROFT MD
--- NOTE | 2017-04-04 12:51 | PN ---
Progress Note (short form) - Note Progress Note: Patient seen and examined. No overnight events. Patient denies any complains. O/E: General: AAOX3 Lungs: CTA bilaterally Heart: regular Abd: Soft, non-tender, non-distended. Normoactive bowel sounds Ext: No LE edema noted Neuro: RUE/RLQ 4/5 muscle strength. LUE/LLE 5/5 muscle strength. Current Medications Generic Name Dose Route Start Last Admin Trade Name Freq PRN Reason Stop Dose Admin Amlodipine Besylate 10 mg 04/02/17 10:00 04/04/17 10:51 Norvasc - PO 10 mg DAILY JUSTEN Administration Atorvastatin Calcium 40 mg 04/03/17 22:00 04/03/17 22:25 Lipitor - PO 40 mg HS JUSTEN Administration Calcium Carbonate 500 mg 04/02/17 22:00 04/04/17 10:50 Os-Alfonso 500mg - PO 500 mg BID JUSTEN Administration Cholecalciferol 5,000 unit 04/03/17 10:00 04/04/17 10:50 Vitamin D3 - PO 5,000 unit DAILY JUST[facility] Administration Clopidogrel Bisulfate 75 mg 04/03/17 10:00 04/04/17 10:50 Plavix - PO 75 mg DAILY JUST[facility] Administration Heparin Sodium (Porcine) 5,000 unit 04/02/17 10:00 04/04/17 10:51 Heparin - SQ 5,000 unit BID JUST[facility] Administration Piperacillin Sod/Tazobactam Sod 50 mls @ 100 mls/hr 04/03/17 14:30 04/04/17 10: 50 Zosyn 3.375gm Ivpb (Pre-Docked) IVPB 100 mls/hr Q8H-IV [facility] Administration Protocol Vancomycin HCl 1,250 mg/ 250 mls @ 166.667 mls/hr 04/04/17 10:00 04/04/17 10:50 Dextrose IVPB 166.667 mls/hr DAILY JUST[facility] Administration Protocol Insulin Aspart 1 vial 04/02/17 07:45 04/04/17 11:54 Novolog Vial Sliding Scale - SQ 2 units ACHS JUST[facility] Administration Protocol Lactobacillus Acidophilus 1 tab 04/02/17 22:00 04/04/17 10:50 Bacid - PO 1 tab BID JUSTEN Administration Pantoprazole Sodium 40 mg 04/02/17 10:00 04/04/17 10:50 Protonix - PO 40 mg DAILY JUST[facility] Administration Sitagliptin Phosphate 100 mg 04/03/17 07:00 04/04/17 06:24 Januvia - PO 100 mg DAILY@0700 JUSTEN Administration Last Vital Signs Temp Pulse Resp BP Pulse Ox 98 F 74 18 112/68 96 04/04/17 10:00 04/04/17 10:00 04/04/17 10:00 04/04/17 10:00 04/03/17 20:48 Abnormal Lab Results 04/04/17 04/04/17 07:30 07:30 RBC 5.99 H Hgb 16.4 H Hct 47.9 H Chloride 108 H Random Glucose 130 H Total Bilirubin 1.3 H 04/02/17 05:19 Blood - Peripheral Venous Blood Culture - Preliminary Staphylococcus Coagulase Neg 04/02/17 12:15 Urine - Urine Clean Catch Urine Culture - Final Escherichia Coli 04/02/17 04:38 Urine - Urine - Catheterized Urine Culture - Final Escherichia Coli 04/03/17 08:35 Blood - Peripheral Venous Blood Culture - Preliminary NO GROWTH OBTAINED AFTER 24 HOURS, INCUBATION TO CONTINUE FOR 4 DAYS. 04/03/17 08:40 Blood - Peripheral Venous Blood Culture - Preliminary NO GROWTH OBTAINED AFTER 24 HOURS, INCUBATION TO CONTINUE FOR 4 DAYS. 04/02/17 05:19 Blood - Peripheral Venous Blood Culture - Preliminary NO GROWTH OBTAINED AFTER 48 HOURS, INCUBATION TO CONTINUE FOR 3 DAYS. Assessment/Plan: Erythrocytosis r/o MPN Ischemic CVA Positive Blood cultures,repeat negative, on abx Plan: -Long-standing stable erythrocytosis. JAK2 negative 2014 ( both exons were checked , 12 and 13). She was also negative for CALR mutation ..Never-smoker, with no documented cardiac or pulmonary disease. At this time, less likely that she has a myeloproliferative disorder. -Ischemic cerebral vascular disease, neurology note appreciated. 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 -Established role for phlebotomy in JAK2 positive P. vera (with target Hct <42- 25%), but utility in this context is nor clear. -Would check epo level - if low may be a role for phlebotomy/cytoreduction, pending. -will need thrombophilia work-up, as the management would not change, we could perform the tests as an out patient. -patient would need follow up with hematology as an Out patient once discharged. -will follow.
--- NOTE | 2017-04-04 12:53 | PN ---
Progress Note, Physician History of Present Illness: patient stable no new events - Current Medication List Current Medications: Active Medications Amlodipine Besylate (Norvasc -) 10 mg PO DAILY [facility] Last Admin: 04/04/17 10:51 Dose: 10 mg Atorvastatin Calcium (Lipitor -) 40 mg PO HS [facility] Last Admin: 04/03/17 22:25 Dose: 40 mg Calcium Carbonate (Os-Alfonso 500mg -) 500 mg PO BID [facility] Last Admin: 04/04/17 10:50 Dose: 500 mg Cholecalciferol (Vitamin D3 -) 5,000 unit PO DAILY [facility] Last Admin: 04/04/17 10:50 Dose: 5,000 unit Clopidogrel Bisulfate (Plavix -) 75 mg PO DAILY [facility] Last Admin: 04/04/17 10:50 Dose: 75 mg Heparin Sodium (Porcine) (Heparin -) 5,000 unit SQ BID [facility] Last Admin: 04/04/17 10:51 Dose: 5,000 unit Piperacillin Sod/Tazobactam Sod (Zosyn 3.375gm Ivpb (Pre-Docked)) 50 mls @ 100 mls/hr IVPB Q8H-IV [facility] PRN Reason: Protocol Last Admin: 04/04/17 10:50 Dose: 100 mls/hr Insulin Aspart (Novolog Vial Sliding Scale -) 1 vial SQ ACHS [facility] PRN Reason: Protocol Last Admin: 04/04/17 11:54 Dose: 2 units Lactobacillus Acidophilus (Bacid -) 1 tab PO BID [facility] Last Admin: 04/04/17 10:50 Dose: 1 tab Pantoprazole Sodium (Protonix -) 40 mg PO DAILY [facility] Last Admin: 04/04/17 10:50 Dose: 40 mg Sitagliptin Phosphate (Januvia -) 100 mg PO DAILY@0700 [facility] Last Admin: 04/04/17 06:24 Dose: 100 mg - Objective Vital Signs: Vital Signs Temperature 98 F 04/04/17 10:00 Pulse Rate 74 04/04/17 10:00 Respiratory Rate 18 04/04/17 10:00 Blood Pressure 112/68 04/04/17 10:00 O2 Sat by Pulse Oximetry (%) 96 04/03/17 20:48 Constitutional: Yes: No Distress, Calm Cardiovascular: Yes: Regular Rate and Rhythm Respiratory: Yes: Regular, CTA Bilaterally Gastrointestinal: Yes: Normal Bowel Sounds, Soft Musculoskeletal: Yes: WNL Extremities: Yes: Other (rt sided weakness) Neurological: Yes: Alert, Oriented Psychiatric: Yes: Alert Labs: CBC, BMP 04/04/17 07:30 04/04/17 07:30 INR, PTT INR 0.97 (0.82-1.09) 04/02/17 01:40 Assessment/Plan 81yF with PMH mult CVA, HTN, HLD, DM leukocytosis DM HTN HLD uti gm positive bacteremia plan stopped vanco cx result noted suppotive measures will switch to ceftriaxone physio
[2017-04-04] MEDS: CEFTRIAXONE 50 ML IVPB SCH (13:59)
--- NOTE | 2017-04-04 18:34 | CONSULT ---
Consult - text type - Consultation Consultation Note: Cardiology no cardiac symptoms PE: vitals stable normal cardio-pulmonary exam abdomen soft no leg edema Impression: BP optimal Echocardiogram normal stable from cardiac standpoint Can be discharged from cardiac standpoint
[2017-04-04] MEDS: SIMVASTATIN 20 MG PO SCH (21:50)
[2017-04-05] MEDS: INSULIN SLIDING SCALE (NOVOLOG) 1 VIAL SQ SCH ×4 (06:09→21:39)
[2017-04-05] MEDS: sitaGLIPtin PHOSPHATE 100 MG TABLET (FP) PO SCH (06:09)
[2017-04-05 08:23] LABS: MCH 27.6 pg (25.7-33.7); MCHC 34.5 g/dl (32.0-36.0); MEAN CELL VOLUME 80.1 fl (80-96); MEAN PLT VOLUME 9.2 fl (7.5-11.1); PLATELET COUNT 171 K/MM3 (134-434); RDW 14.1 % (11.6-15.6); WHITE BLOOD COUNT 6.6 K/mm3 (4.0-10.0)
[2017-04-05] MEDS: CEFTRIAXONE 50 ML IVPB SCH (09:17)
[2017-04-05] MEDS: CHOLECALCIFEROL (VITAMIN D3) 1,000 UNIT TABLET (FP) PO SCH (09:18)
[2017-04-05] MEDS: PANTOPRAZOLE 40 MG TABLET (FP) PO SCH (09:18)
[2017-04-05] MEDS: CALCIUM (OYSTER SHELL) 500 MG TABLET (FP) PO SCH ×2 (09:18→21:38)
[2017-04-05] MEDS: LACTOBACILLUS ACIDOPHILUS 1 EACH TAB (FP) PO SCH ×2 (09:18→21:37)
[2017-04-05] MEDS: amLODIPine BESYLATE 10 MG TABLET (FP) PO SCH (09:18)
[2017-04-05] MEDS: CLOPIDOGREL BISULFATE 75 MG TABLET (FP) PO SCH (09:19)
[2017-04-05] MEDS: HEPARIN NA (PORCINE) 5,000 UNITS/ML 1ML VIAL SQ SCH ×2 (09:19→21:37)
--- NOTE | 2017-04-05 15:24 | PN ---
Progress Note, Physician History of Present Illness: patient stable no new events feels patient is doing well - Current Medication List Current Medications: Active Medications Amlodipine Besylate (Norvasc -) 10 mg PO DAILY [facility] Last Admin: 04/05/17 09:18 Dose: 10 mg Calcium Carbonate (Os-Alfonso 500mg -) 500 mg PO BID [facility] Last Admin: 04/05/17 09:18 Dose: 500 mg Cholecalciferol (Vitamin D3 -) 5,000 unit PO DAILY [facility] Last Admin: 04/05/17 09:18 Dose: 5,000 unit Clopidogrel Bisulfate (Plavix -) 75 mg PO DAILY [facility] Last Admin: 04/05/17 09:19 Dose: 75 mg Heparin Sodium (Porcine) (Heparin -) 5,000 unit SQ BID [facility] Last Admin: 04/05/17 09:19 Dose: 5,000 unit Ceftriaxone Sodium (Rocephin 1gm Ivpb (Pre-Docked)) 50 mls @ 100 mls/hr IVPB DAILY [facility] Last Admin: 04/05/17 09:17 Dose: 100 mls/hr Insulin Aspart (Novolog Vial Sliding Scale -) 1 vial SQ [facility] PRN Reason: Protocol Last Admin: 04/05/17 12:00 Dose: 2 units Lactobacillus Acidophilus (Bacid -) 1 tab PO BID [facility] Last Admin: 04/05/17 09:18 Dose: 1 tab Simvastatin 20mg Tab (Non-Formulary Med) 1 each PO HS [facility] Last Admin: 04/04/17 21:50 Dose: 1 each Pantoprazole Sodium (Protonix -) 40 mg PO DAILY [facility] Last Admin: 04/05/17 09:18 Dose: 40 mg Sitagliptin Phosphate (Januvia -) 100 mg PO DAILY@0700 [facility] Last Admin: 04/05/17 06:09 Dose: 100 mg - Objective Vital Signs: Vital Signs Temperature 98.7 F 04/05/17 13:59 Pulse Rate 91 H 04/05/17 13:59 Respiratory Rate 16 04/05/17 13:59 Blood Pressure 135/86 04/05/17 13:59 O2 Sat by Pulse Oximetry (%) 94 L 04/05/17 09:00 Constitutional: Yes: No Distress, Calm Eyes: Yes: Conjunctiva Clear HENT: Yes: Atraumatic Neck: Yes: Supple Cardiovascular: Yes: Regular Rate and Rhythm Respiratory: Yes: Regular, CTA Bilaterally Gastrointestinal: Yes: Normal Bowel Sounds, Soft Musculoskeletal: Yes: WNL Extremities: Yes: Other Neurological: Yes: Other (rt sided weakness) Labs: CBC, BMP 04/05/17 05:55 04/04/17 07:30 INR, PTT INR 0.97 (0.82-1.09) 04/02/17 01:40 Assessment/Plan 81yF with PMH mult CVA, HTN, HLD, DM leukocytosis DM HTN HLD uti gm positive bacteremia plan continue current mgmt once patient gets tomorrows dose of iv patient can be switched to oral augmentin for another 5 days d/w the team
--- NOTE | 2017-04-05 16:13 | PN ---
Progress Note (short form) - Note Progress Note: Subjective: The patient was seen and examined at the bedside, she has no complaints at this time. Per Dr. Lazo, to receive tomorrow AM dose of abx then discharge Current Medications Generic Name Dose Route Start Last Admin Trade Name Mike PRN Reason Stop Dose Admin Amlodipine Besylate 10 mg 04/02/17 10:00 04/05/17 09:18 Norvasc - PO 10 mg DAILY JUSTEN Administration Calcium Carbonate 500 mg 04/02/17 22:00 04/05/17 09:18 Os-Alfonso 500mg - PO 500 mg BID JUSTEN Administration Cholecalciferol 5,000 unit 04/03/17 10:00 04/05/17 09:18 Vitamin D3 - PO 5,000 unit DAILY JUSTEN Administration Clopidogrel Bisulfate 75 mg 04/03/17 10:00 04/05/17 09:19 Plavix - PO 75 mg DAILY JUSTEN Administration Heparin Sodium (Porcine) 5,000 unit 04/02/17 10:00 04/05/17 09:19 Heparin - SQ 5,000 unit BID JUSTEN Administration Ceftriaxone Sodium 50 mls @ 100 mls/hr 04/04/17 13:00 04/05/17 09:17 Rocephin 1gm Ivpb (Pre-Docked) IVPB 100 mls/hr DAILY JUSTEN Administration Insulin Aspart 1 vial 04/02/17 07:45 04/05/17 12:00 Novolog Vial Sliding Scale - SQ 2 units ACHS JUSTEN Administration Protocol Lactobacillus Acidophilus 1 tab 04/02/17 22:00 04/05/17 09:18 Bacid - PO 1 tab BID JUSTEN Administration Simvastatin 20mg Tab 1 each 04/04/17 22:00 04/04/17 21:50 Non-Formulary Med PO 1 each HS JUSTEN Administration Pantoprazole Sodium 40 mg 04/02/17 10:00 04/05/17 09:18 Protonix - PO 40 mg DAILY JUSTEN Administration Sitagliptin Phosphate 100 mg 04/03/17 07:00 04/05/17 06:09 Januvia - PO 100 mg DAILY@0700 JUSTEN Administration Objective: Vital Signs Period Temp Pulse Resp BP Sys/Haney Pulse Ox Last 24 Hr 97.4 F-98.7 F 74-91 16-20 124-138/62-86 93-94 Physical Exam: General: NAD, A&Ox3 Lungs: CTA bilaterally Heart: RRR, S1S2 Abd: Soft, non-tender, non-distended. Normoactive bowel sounds Ext: Warm, well-perfused. 2+ DP/PT bilaterally Neuro: RUE/RLQ 4/5 muscle strength. LUE/LLE 5/5 muscle strength. Decrease ROM in right shoulder with active and passive ROM CBCD WBC 6.6 K/mm3 (4.0-10.0) 04/05/17 05:55 RBC 6.00 M/mm3 (3.60-5.2) H 04/05/17 05:55 Hgb 16.5 GM/dL (10.7-15.3) H 04/05/17 05:55 Hct 48.0 % (32.4-45.2) H 04/05/17 05:55 MCV 80.1 fl (80-96) 04/05/17 05:55 MCHC 34.5 g/dl (32.0-36.0) 04/05/17 05:55 RDW 14.1 % (11.6-15.6) 04/05/17 05:55 Plt Count 171 K/MM3 (134-434) 04/05/17 05:55 MPV 9.2 fl (7.5-11.1) 04/05/17 05:55 CMP Sodium 142 mmol/L (136-145) 04/04/17 07:30 Potassium 3.8 mmol/L (3.5-5.1) 04/04/17 07:30 Chloride 108 mmol/L (98-107) H 04/04/17 07:30 Carbon Dioxide 26 mmol/L (21-32) 04/04/17 07:30 Anion Gap 8 (8-16) 04/04/17 07:30 BUN 15 mg/dL (7-18) 04/04/17 07:30 Creatinine 0.8 mg/dL (0.55-1.02) 04/04/17 07:30 Creat Clearance w eGFR > 60 (>60) 04/04/17 07:30 Random Glucose 130 mg/dL (74-106) H 04/04/17 07:30 Calcium 9.0 mg/dL (8.5-10.1) 04/04/17 07:30 Total Bilirubin 1.3 mg/dL (0.2-1.0) H 04/04/17 07:30 AST 19 U/L (15-37) D 04/04/17 07:30 ALT 30 U/L (12-78) 04/04/17 07:30 Alkaline Phosphatase 87 U/L (45-117) 04/04/17 07:30 Total Protein 7.1 g/dl (6.4-8.2) 04/04/17 07:30 Albumin 3.8 g/dl (3.4-5.0) 04/04/17 07:30 CARDIAC ENZYMES Creatine Kinase 87 IU/L (26-192) 04/02/17 01:40 Troponin I < 0.02 ng/ml (0.00-0.05) 04/02/17 01:40 Microbiology 04/02/17 05:19 Blood - Peripheral Venous Blood Culture - Preliminary Staphylococcus Coagulase Neg 04/03/17 08:35 Blood - Peripheral Venous Blood Culture - Preliminary NO GROWTH OBTAINED AFTER 48 HOURS, INCUBATION TO CONTINUE FOR 3 DAYS. 04/03/17 08:40 Blood - Peripheral Venous Blood Culture - Preliminary NO GROWTH OBTAINED AFTER 48 HOURS, INCUBATION TO CONTINUE FOR 3 DAYS. 04/02/17 05:19 Blood - Peripheral Venous Blood Culture - Preliminary NO GROWTH OBTAINED AFTER 72 HOURS, INCUBATION TO CONTINUE FOR 2 DAYS. 04/02/17 12:15 Urine - Urine Clean Catch Urine Culture - Final Escherichia Coli 04/02/17 04:38 Urine - Urine - Catheterized Urine Culture - Final Escherichia Coli Imaging: CT head (stroke): No significant interval change or gross acute intracranial pathology identified. Abdomen/CT/Pelvis: 1.4 cm focal low attenuation density in the right hepatic lobe, non specific. +post cholecystectomy surgical metallic clips present Carotid Doppler 04/03/2017: int. 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 Plan: 1) Neuro: CVA vs. TIA - CVA ruled out as MRI showed no acute intracranial pathology - Continue home plavix - Continue atorvastatin - Patient reports right sided weakness is at her baseline Seizure activity - Witnessed seizure episode during admission - EEG yesterday, awaiting read - Appreciate neuro consult 2) ID: UTI - Urine culture with vallejo sensitive e.coli - Blood culture contaminant - Continue Ceftriaxone per ID - Appreciate ID consult 3) Cardiology: HTN - Resolved - Appreciate cardiology consult 4) Hematology: Chronic erythrocytosis - Epo level 6 - JAK2 negative 2014 - Appreciate hematology consult 5) Endocrine: DM - BGM ACHS - ISS ACHS 6) F/E/N: - Monitor electrolytes - Diabetic/low sodium diet 7) Prophylaxis: - SCDs bilaterally - No chemical dvt prophylaxis as the patient had episodes of hematuria 8) Dispo: - Requires continued inpatient care CODE STATUS: FULL CODE Visit type - Emergency Visit Emergency Visit: Yes ED Registration Date: 04/02/17 Care time: The patient presented to the Emergency Department on the above date and was hospitalized for further evaluation of their emergent condition. - New Patient This patient is new to me today: No - Critical Care Critical Care patient: No
[2017-04-05] MEDS: SIMVASTATIN 20 MG PO SCH (21:38)
[2017-04-06] MEDS: INSULIN SLIDING SCALE (NOVOLOG) 1 VIAL SQ SCH (06:01)
[2017-04-06] MEDS: sitaGLIPtin PHOSPHATE 100 MG TABLET (FP) PO SCH (06:01)
[2017-04-06 07:26] LABS: MCH 27.3 pg (25.7-33.7); MEAN CELL VOLUME 80.2 fl (80-96); MEAN PLT VOLUME 9.2 fl (7.5-11.1); PLATELET COUNT 175 K/MM3 (134-434); RDW 14.3 % (11.6-15.6); WHITE BLOOD COUNT 6.3 K/mm3 (4.0-10.0)
[2017-04-06 08:23] LABS: ALBUMIN 3.7 g/dl (3.4-5.0); ALK PHOS 77 U/L (45-117); ANION GAP 9 (8-16); CO2 25 mmol/L (21-32); CREATININE 0.7 mg/dL (0.55-1.02); GLUCOSE,RANDOM 146 mg/dL (74-106); SGOT/AST 38 U/L (15-37); SGPT/ALT 56 U/L (12-78); TOT PROT 6.8 g/dl (6.4-8.2)
--- NOTE | 2017-04-06 08:44 | DS ---
Physical Examination Vital Signs: Vital Signs Temperature 97.8 F 04/06/17 06:00 Pulse Rate 87 04/06/17 06:00 Respiratory Rate 18 04/06/17 06:00 Blood Pressure 114/57 04/06/17 06:00 O2 Sat by Pulse Oximetry (%) 94 L 04/05/17 21:00 Labs: CBC, BMP 04/06/17 05:35 04/06/17 05:35 Discharge Summary Reason For Visit: RIGHT-SIDED WEAKNESS, LEUKOCYTOSIS Current Active Problems Leukocytosis (Acute) Right sided weakness (Acute) Condition: Improved - Instructions Diet, Activity, Other Instructions: Please return to the ED with new, persistent, or worsening symptoms. Please follow-up with providers as indicated. You are being discharged with a prescription for Augmentin. Complete the full course of antibiotics even if you are feeling better. Referrals: Nirmal Saenz MD [Primary Care Provider] - (Please follow-up with your primary care provider within 1 week. ) Rebekah Correa MD [Staff Physician] - (Please follow-up with Dr. Welch ( hematology) within 2-3 days for further thrombophilia work up and management) Dagoberto Benjamin MD [Staff Physician] - (Please follow-up with cardiology within 1 week for further cardiac workup) Sunil Curtis MD [Staff Physician] - (Please follow-up with neurology within 1 week for further neurological workup and EEG results) Disposition: HOME - Home Medications Comprehensive Discharge Medication List: Ambulatory Orders Amlodipine Besylate [Norvasc -] 10 mg PO DAILY 04/02/17 Calcium Carbonate [Calcium] 500 mg PO BID 04/02/17 Canagliflozin [Invokana] 100 mg PO DAILY 04/02/17 Cholecalciferol (Vitamin D3) [Vitamin D3 -] 5,000 unit PO DAILY 04/02/17 Clopidogrel Bisulfate [Plavix -] 75 mg PO DAILY 04/02/17 Glimepiride [Amaryl -] 2 mg PO BID 04/02/17 Glucosamine Sulfate Dipot Chlr [Glucosamine] 1,000 mg PO BID 04/02/17 L.acidoph,Paracasei, B.lactis [Probiotic] 1 each PO BID 04/02/17 Simvastatin [Zocor -] 20 mg PO HS 04/02/17 Amoxicillin/Potassium Clav [Augmentin 875-125 Tablet] 1 each PO BID #10 tablet 04/06/17 Pantoprazole Sodium [Protonix -] 40 mg PO DAILY tab 04/06/17 Sitagliptin Phosphate [Januvia] 100 mg PO DAILY #0 tab 04/06/17 - Discharge Referral Referred to [facility] No
[2017-04-06 08:51] VITALS: BP 124/64; PULSE 80; TEMP 98
[2017-04-06] MEDS: CEFTRIAXONE 50 ML IVPB SCH (09:01)
[2017-04-06] MEDS: CLOPIDOGREL BISULFATE 75 MG TABLET (FP) PO SCH (09:02)
[2017-04-06] MEDS: CHOLECALCIFEROL (VITAMIN D3) 1,000 UNIT TABLET (FP) PO SCH (09:02)
[2017-04-06] MEDS: PANTOPRAZOLE 40 MG TABLET (FP) PO SCH (09:02)
[2017-04-06] MEDS: CALCIUM (OYSTER SHELL) 500 MG TABLET (FP) PO SCH (09:02)
[2017-04-06] MEDS: LACTOBACILLUS ACIDOPHILUS 1 EACH TAB (FP) PO SCH (09:02)
[2017-04-06] MEDS: amLODIPine BESYLATE 10 MG TABLET (FP) PO SCH (09:02)
[2017-04-06] MEDS: HEPARIN NA (PORCINE) 5,000 UNITS/ML 1ML VIAL SQ SCH (09:03)
--- NOTE | 2017-04-06 13:43 | HOSP ---
Physical Examination Vital Signs: Vital Signs Temperature 98 F 04/06/17 08:50 Pulse Rate 80 04/06/17 08:50 Respiratory Rate 18 04/06/17 08:50 Blood Pressure 124/64 04/06/17 08:50 O2 Sat by Pulse Oximetry (%) 97 04/06/17 09:00 Findings/Remarks: Call from microbiology ([id number]) that anaerobic bottle from 04/02 with gram positive bacilli Called and spoke to Dr. Lazo who recommends having the patient come back in and start Zosyn Called patient ([phone]), received message that phone line was disconnected Called and spoke to daughter, Gretchen ([phone]) at 13:45 and informed daughter to have the patient return to the ED for further workup 2/2 abnormal lab results. Gretchen reports is bringing mother to hospital now. Called ED and spoke to Dr. Mccollum to inform of case Labs: CBC, BMP 04/06/17 05:35 04/06/17 05:35
== END 2017-04-06 12:00 | disposition home or self-care (01) | DRG 690 ==
LOC: JER 00:29 → JERBED 05:52 → UNDOADMIN 06:14 → JERBED 06:14 → J4W 08:03
PROVIDERS: ADMIT Internal Medicine; ATTEND Registered Nurse
DX: N39.0 Urinary tract infection, site not specified (principal); R78.81 Bacteremia; G45.9 Transient cerebral ischemic attack, unspecified; I69.351 Hemiplegia and hemiparesis following cerebral infarction affecting right dominant side; D72.829 Elevated white blood cell count, unspecified; R56.9 Unspecified convulsions; R29.810 Facial weakness; I10 Essential (primary) hypertension; E78.5 Hyperlipidemia, unspecified; E11.9 Type 2 diabetes mellitus without complications
CPT/HCPCS: 36415; 70450-TC; 70551-TC; 71010-TC; 74176-TC; 80048; 80053; 81003; 81015; 82465; 82550; 82668; 83718; 83721; 83735; 84100; 84478; 84484; 85025; 85027; 85610; 86850; 86900; 86901; 87040; 87076; 87086; 87186; 93005; 93010; 93306-TC; 93880-TC; 95816; 97116-GP; 97162-GP; 99283-25; J1644

== ENCOUNTER 2017-04-06 15:14 | Inpatient (IN) | payer OTHER, BC ==
[2017-04-06 15:34] VITALS: BMI 27.6
--- NOTE | 2017-04-06 16:08 | PDOC ---
History of Present Illness - General Chief Complaint: Revisit, Lab Variance Stated Complaint: positive blood culture result,no complaints Time Seen by Provider: 04/06/17 16:05 History Source: Patient Exam Limitations: No Limitations - History of Present Illness Initial Comments: CHIEF COMPLAINT: 81 y/o afebrile female with PMH TIA (with residual right UE weakness), HTN, HLD, and DM discharged this morning called by the hospital to come back in for positive blood culture result. HISTORY OF PRESENT ILLNESS: The patient states she feels well and denies all complaints. Vital signs on arrival are notable for pulse of 93. REVIEW OF SYSTEMS: GENERAL/CONSTITUTIONAL: No fever/chills. No weakness. No weight change. HEAD, EYES, EARS, NOSE AND THROAT: No change in vision. No ear pain or discharge. No sore throat. CARDIOVASCULAR: No chest pain or shortness of breath. RESPIRATORY: No cough, wheezing, or hemoptysis. GASTROINTESTINAL: No abd pain, nausea, vomiting, diarrhea. GENITOURINARY: No dysuria, frequency, or change in urination. MUSCULOSKELETAL: No joint or muscle swelling or pain. No neck or back pain. SKIN: No rash or easy bruising. NEUROLOGIC: No headache, vertigo, loss of consciousness, or loss of sensation. PHYSICAL EXAM: GENERAL: The patient is awake, alert, and fully oriented, in no acute distress. HEAD: Normal with no signs of trauma. ENT: Pupils equal, round and reactive to light, extraocular movements intact, sclera anicteric, conjunctiva clear. Neck supple. LUNGS: Clear to auscultation bilaterally. Normal excursion. No respiratory distress or use of accessory muscles. CV: RRR, S1/S2, no MRG. Cap refill < 2 sec. ABDOMEN: Soft, non-distended, non-tender even to deep palpation, no hepatomegaly or splenomegaly, no masses. EXTREMITIES: Normal range of motion, no edema. NEUROLOGICAL: Normal speech, normal gait. CN II-XII grossly intact. PSYCH: Normal mood, normal affect. SKIN: Warm, dry, normal turgor, no rashes or lesions noted. Past History - Past Medical History Allergies/Adverse Reactions: Allergies Allergy/AdvReac Type Severity Reaction Status Date / Time No Known Allergies Allergy Verified 04/06/17 15:29 Home Medications: Ambulatory Orders Amlodipine Besylate [Norvasc -] 10 mg PO DAILY 04/02/17 Calcium Carbonate [Calcium] 500 mg PO BID 04/02/17 Canagliflozin [Invokana] 100 mg PO DAILY 04/02/17 Cholecalciferol (Vitamin D3) [Vitamin D3 -] 5,000 unit PO DAILY 04/02/17 Clopidogrel Bisulfate [Plavix -] 75 mg PO DAILY 04/02/17 Glimepiride [Amaryl -] 2 mg PO BID 04/02/17 Glucosamine Sulfate Dipot Chlr [Glucosamine] 1,000 mg PO BID 04/02/17 L.acidoph,Paracasei, B.lactis [Probiotic] 1 each PO BID 04/02/17 Simvastatin [Zocor -] 20 mg PO HS 04/02/17 Amoxicillin/Potassium Clav [Augmentin 875-125 Tablet] 1 each PO BID #10 tablet 04/06/17 Pantoprazole Sodium [Protonix -] 40 mg PO DAILY tab 04/06/17 Sitagliptin Phosphate [Januvia] 100 mg PO DAILY #0 tab 04/06/17 Anemia: No Asthma: No Cancer: No Cardiac Disorders: No CVA: Yes (SEVERAL CVA'S) COPD: No CHF: No Dementia: No Diabetes: Yes GI Disorders: No Disorders: No HTN: Yes Hypercholesterolemia: Yes Liver Disease: No Suicide Attempt (Hx): No Seizures: No Thyroid Disease: No - Surgical History Abdominal Surgery: No Appendectomy: No Cardiac Surgery: Yes (REVEAL LINQ cardiac monito implanted) Cholecystectomy: Yes Lung Surgery: No Neurologic Surgery: No Orthopedic Surgery: No - Psycho/Social/Smoking Cessation Hx Suicidal Ideation: No Smoking History: Never smoked Have you smoked in the past 12 months: No Hx Alcohol Use: No Drug/Substance Use Hx: No Substance Use Type: None Hx Substance Use Treatment: No *Physical Exam - Vital Signs Last Vital Signs Temp Pulse Resp BP Pulse Ox 97.3 F L 93 H 20 138/72 95 04/06/17 15:29 04/06/17 15:29 04/06/17 15:29 04/06/17 15:29 04/06/17 15:29 Medical Decision Making - Medical Decision Making A/P: 81 y/o female discharged from the hospital this morning called by the hospital this afternoon to come back in for positive blood cultures. The patient has no complaints. Spoke with OLGA Salinas and she accepts admission to Dr. Lockwood. She does not want new labs drawn. Pt is aware of the plan. Dr. Lazo consulted. *DC/Admit/Observation/Transfer Diagnosis at time of Disposition: Positive blood cultures - Discharge Dispostion Condition at time of disposition: Good Admit: Yes - Referrals Referrals: STAFF,NOT ON [Primary Care Provider] -
[2017-04-06] MEDS ORDERED: PIPERACILLIN/TAZOB 3.375 GM/50 ML PRE-DOCKED IVPB SCH (16:15)
[2017-04-06] MEDS ORDERED: ACETAMINOPHEN 325 MG TABLET (FP) PO PRN (16:17)
[2017-04-06] MEDS ORDERED: ONDANSETRON 4 MG/2 ML VIAL IVPB PRN (16:17)
--- NOTE | 2017-04-06 16:17 | HP ---
CHIEF COMPLAINT: Called back for positive blood culture PCP: Tucker Saenz HISTORY OF PRESENT ILLNESS: This is an 81 year old female with a history of multiple CVAs with residual RUE weakness, HTN, HLD, NIDDM, and chronic erythrocytosis who was admitted here from 04/02-04/06 with seizure-like activity. CTH showed no acute pathology and seizures did not recur. She was treated with Ceftriaxone for vallejo-sensitive E. coli UTI and discharged earlier today, however was re-called when one anaerobic blood culture grew gram positive bacilli. Recent Travel: None PAST MEDICAL HISTORY: As above PAST SURGICAL HISTORY: Loop recorder, bunionectomy Social History: Primarily Nigerien-speaking Smoking: None Alcohol: None Family History: Non-contributory to this admission Allergies No Known Allergies Allergy (Verified 04/06/17 15:29) HOME MEDICATIONS: Home Medications Medication Instructions Recorded Amlodipine Besylate [Norvasc -] 10 mg PO DAILY 04/02/17 Calcium Carbonate [Calcium] 500 mg PO BID 04/02/17 Canagliflozin [Invokana] 100 mg PO DAILY 04/02/17 Cholecalciferol (Vitamin D3) 5,000 unit PO DAILY 04/02/17 [Vitamin D3 -] Clopidogrel Bisulfate [Plavix -] 75 mg PO DAILY 04/02/17 Glimepiride [Amaryl -] 2 mg PO BID 04/02/17 Glucosamine Sulfate Dipot Chlr 1,000 mg PO BID 04/02/17 [Glucosamine] L.acidoph,Paracasei, B.lactis 1 each PO BID 04/02/17 [Probiotic] Simvastatin [Zocor -] 20 mg PO HS 04/02/17 Amoxicillin/Potassium Clav 1 each PO BID #10 tablet 04/06/17 [Augmentin 875-125 Tablet] Pantoprazole Sodium [Protonix -] 40 mg PO DAILY tab 04/06/17 Sitagliptin Phosphate [Januvia] 100 mg PO DAILY #0 tab 04/06/17 REVIEW OF SYSTEMS CONSTITUTIONAL: Absent: fever, chills, diaphoresis, generalized weakness, malaise, loss of appetite, weight change HEENT: Absent: rhinorrhea, nasal congestion, throat pain, throat swelling, difficulty swallowing, mouth swelling, ear pain, eye pain, visual changes CARDIOVASCULAR: Absent: chest pain, syncope, palpitations, irregular heart rate, lightheadedness , peripheral edema RESPIRATORY: Absent: cough, shortness of breath, dyspnea with exertion, orthopnea, wheezing, stridor, hemoptysis GASTROINTESTINAL: Absent: abdominal pain, abdominal distension, nausea, vomiting, diarrhea, constipation, melena, hematochezia GENITOURINARY: Absent: dysuria, frequency, urgency, hesitancy, hematuria, flank pain, genital pain MUSCULOSKELETAL: Absent: myalgia, arthralgia, joint swelling, back pain, neck pain SKIN: Absent: rash, itching, pallor HEMATOLOGIC/IMMUNOLOGIC: Absent: easy bleeding, easy bruising, lymphadenopathy, frequent infections ENDOCRINE: Absent: unexplained weight gain, unexplained weight loss, heat intolerance, cold intolerance NEUROLOGIC: Absent: headache, focal weakness or paresthesias, dizziness, unsteady gait, seizure, mental status changes, bladder or bowel incontinence PSYCHIATRIC: Absent: anxiety, depression, suicidal or homicidal ideation, hallucinations. PHYSICAL EXAMINATION Vital Signs - 24 hr 04/06/17 15:29 Temperature 97.3 F L Pulse Rate 93 H Respiratory 20 Rate Blood Pressure 138/72 O2 Sat by Pulse 95 Oximetry (%) GENERAL: Awake, alert, and fully oriented, in no acute distress. HEAD: Normal with no signs of trauma. EYES: Pupils equal, round and reactive to light, extraocular movements intact, sclera anicteric, conjunctiva clear. No lid lag. EARS, NOSE, THROAT: Ears normal, nares patent, oropharynx clear without exudates. Moist mucous membranes. NECK: Normal range of motion, supple without lymphadenopathy, JVD, or masses. LUNGS: Breath sounds equal, clear to auscultation bilaterally. No wheezes, and no crackles. No accessory muscle use. HEART: Regular rate and rhythm, normal S1 and S2 without murmur, rub or gallop. ABDOMEN: Soft, nontender, not distended, normoactive bowel sounds, no guarding, no rebound, no masses. No hepatomegaly or splenomegaly. MUSCULOSKELETAL: Normal range of motion at all joints. No bony deformities or tenderness. No CVA tenderness. UPPER EXTREMITIES: 2+ pulses, warm, well-perfused. No cyanosis. No clubbing. No peripheral edema. LOWER EXTREMITIES: 2+ pulses, warm, well-perfused. No calf tenderness. No peripheral edema. NEUROLOGICAL: Cranial nerves II-XII intact. Normal speech. Normal gait. RUE strength slightly diminished. PSYCHIATRIC: Cooperative. Good eye contact. Appropriate mood and affect. SKIN: Warm, dry, normal turgor, no rashes or lesions noted, normal capillary refill. ASSESSMENT/PLAN: Problem List - Problem (1) Positive blood cultures Assessment/Plan: -Repeat cultures sent on 04/03; no growth to date; await final results -Zosyn 3.375g q8h per ID -ID to follow -Follow fever, WBC curve Code(s): R78.81 - BACTEREMIA (2) Cerebrovascular accident Assessment/Plan: -No active issues -Continue Plavix Code(s): I63.9 - CEREBRAL INFARCTION, UNSPECIFIED (3) HTN (hypertension) Assessment/Plan: -At goal -Continue Norvasc Code(s): I10 - ESSENTIAL (PRIMARY) HYPERTENSION (4) HLD (hyperlipidemia) Assessment/Plan: -Continue statin Code(s): E78.5 - HYPERLIPIDEMIA, UNSPECIFIED (5) Diabetes Assessment/Plan: -Continue home Januvia, Invokana, Amaryl -Diabetic diet -Can add FS/ISS if serum glucoses above goal Code(s): E11.9 - TYPE 2 DIABETES MELLITUS WITHOUT COMPLICATIONS (6) Erythrocytosis Assessment/Plan: -JAK2 negative -Seen by hematology on prior admission -No active issues Code(s): D75.1 - SECONDARY POLYCYTHEMIA (7) DVT prophylaxis Assessment/Plan: -[facility] -Early ambulation Code(s): QAB7478 - Visit type - Emergency Visit Emergency Visit: Yes ED Registration Date: 04/06/17 Care time: The patient presented to the Emergency Department on the above date and was hospitalized for further evaluation of their emergent condition. - New Patient This patient is new to me today: Yes Date on this admission: 04/06/17 - Critical Care Critical Care patient: No
[2017-04-06] MEDS ORDERED: PIPERACILLIN/TAZOB 3.375 GM/50 ML PRE-DOCKED IVPB ONE (16:30)
[2017-04-06] MEDS ORDERED: PIPERACILLIN/TAZOB 3.375 GM 50 ML IVPB ONE (16:44)
--- NOTE | 2017-04-06 18:16 | CONSULT ---
Consult Consult Specialty:: infectious diseases Reason for Consultation:: positive blood cx - History of Present Illness History of Present Illness: 81 y/o afebrile female with PMH TIA (with residual right UE weakness), HTN, HLD , and DM was discharged in the morning after being treated for positive blood cx and uti one of the patients blood cx again became positive and the patient was called abck to the hospital patient has not really missed any doses of abx as she had got one IV dose in the morning patient feels well and has no complaints except the weakness on the rt side still present - History Source History Provided By: Family Member Limitations to Obtaining History: Language Barrier - 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 Cardio/Vascular: Yes: HTN, Hyperlipdemia Endocrine: Yes: Diabetes Mellitus - Alcohol/Substance Use Hx Alcohol Use: No History of Substance Use: reports: None - Smoking History Smoking history: Never smoked Have you smoked in the past 12 months: No - Social History History of Recent Travel: No Home Medications - Allergies Allergies/Adverse Reactions: Allergies Allergy/AdvReac Type Severity Reaction Status Date / Time atorvastatin calcium Allergy Verified 04/06/17 18:13 [From Lipitor] - Home Medications Home Medications: Ambulatory Orders Amlodipine Besylate [Norvasc -] 10 mg PO DAILY 04/02/17 Calcium Carbonate [Calcium] 500 mg PO BID 04/02/17 Canagliflozin [Invokana] 100 mg PO DAILY 04/02/17 Cholecalciferol (Vitamin D3) [Vitamin D3 -] 5,000 unit PO DAILY 04/02/17 Clopidogrel Bisulfate [Plavix -] 75 mg PO DAILY 04/02/17 Glimepiride [Amaryl -] 2 mg PO BID 04/02/17 Glucosamine Sulfate Dipot Chlr [Glucosamine] 1,000 mg PO BID 04/02/17 L.acidoph,Paracasei, B.lactis [Probiotic] 1 each PO BID 04/02/17 Simvastatin [Zocor -] 20 mg PO HS 04/02/17 Amoxicillin/Potassium Clav [Augmentin 875-125 Tablet] 1 each PO BID #10 tablet 04/06/17 Pantoprazole Sodium [Protonix -] 40 mg PO DAILY tab 04/06/17 Sitagliptin Phosphate [Januvia] 100 mg PO DAILY #0 tab 04/06/17 Review of Systems - Review of Systems Constitutional: reports: No Symptoms Eyes: reports: No Symptoms HENT: reports: No Symptoms Neck: reports: No Symptoms Cardiovascular: reports: No Symptoms Respiratory: reports: No Symptoms Gastrointestinal: reports: No Symptoms Genitourinary: reports: No Symptoms Musculoskeletal: reports: No Symptoms Integumentary: reports: No Symptoms Neurological: reports: No Symptoms Endocrine: reports: No Symptoms Hematology/Lymphatic: reports: No Symptoms Psychiatric: reports: No Symptoms Physical Exam Vital Signs: Vital Signs Temperature 97.6 F 04/06/17 17:21 Pulse Rate 82 04/06/17 17:21 Respiratory Rate 20 04/06/17 17:21 Blood Pressure 122/73 04/06/17 17:21 O2 Sat by Pulse Oximetry (%) 100 04/06/17 17:21 Constitutional: Yes: No Distress, Calm Eyes: Yes: Conjunctiva Clear Cardiovascular: Yes: Regular Rate and Rhythm Respiratory: Yes: Regular, CTA Bilaterally Gastrointestinal: Yes: Normal Bowel Sounds, Soft Musculoskeletal: Yes: WNL Extremities: Yes: WNL Neurological: Yes: Alert, Oriented, Other (rt sided weakness) Psychiatric: Yes: Alert, Oriented Assessment/Plan Problem List - Problem (1) Positive blood cultures Code(s): R78.81 - BACTEREMIA (2) Cerebrovascular accident Code(s): I63.9 - CEREBRAL INFARCTION, UNSPECIFIED (3) HTN (hypertension) Code(s): I10 - ESSENTIAL (PRIMARY) HYPERTENSION (4) HLD (hyperlipidemia) Code(s): E78.5 - HYPERLIPIDEMIA, UNSPECIFIED (5) Diabetes Code(s): E11.9 - TYPE 2 DIABETES MELLITUS WITHOUT COMPLICATIONS (6) Erythrocytosis Code(s): D75.1 - SECONDARY POLYCYTHEMIA plan continue current mgmt will check blood cx on sat morning if negative patient will be able to go home await for identification of the organism
[2017-04-06] MEDS ORDERED: PATIENT'S OWN MEDICATION (NON-FORMULARY) (Glucosamine Sulfate Dipot Chlr [Glucosamine] 1,0 PO SCH (22:00)
[2017-04-06] MEDS ORDERED: ATORVASTATIN CA 10 MG TABLET (FP) PO SCH (22:00)
[2017-04-06] MEDS: LACTOBACILLUS ACIDOPHILUS 1 EACH TAB (FP) PO SCH (22:53)
[2017-04-06] MEDS: CALCIUM (OYSTER SHELL) 500 MG TABLET (FP) PO SCH (22:53)
[2017-04-06] MEDS: DOCUSATE SODIUM 100 MG CAPSULE (FP) PO SCH (22:53)
[2017-04-06] MEDS: HEPARIN NA (PORCINE) 5,000 UNITS/ML 1ML VIAL SQ SCH (22:53)
[2017-04-07] MEDS ORDERED: PT OWN MED DRAWER 7, Y5N ONE ×2 (00:11→17:20)
[2017-04-07] MEDS: PIPERACILLIN/TAZOB 3.375 GM 3.375 GM in DEXTROSE 5%-WATER - 50 ML IVPB SCH ×3 (01:22→17:23)
[2017-04-07] MEDS: DOCUSATE SODIUM 100 MG CAPSULE (FP) PO SCH ×3 (06:10→21:51)
[2017-04-07] MEDS: sitaGLIPtin PHOSPHATE 50 MG TABLET PO SCH (06:10)
[2017-04-07] MEDS: GLIMEPIRIDE 4 MG TABLET (FP) PO SCH ×2 (06:20→17:24)
[2017-04-07 07:40] LABS: BASOPHIL 0.4 % (0-2.0); MCH 27.4 pg (25.7-33.7); MCHC 34.1 g/dl (32.0-36.0); MEAN CELL VOLUME 80.2 fl (80-96); MEAN PLT VOLUME 9.1 fl (7.5-11.1); NEUTROPHILS 55.8 % (42.8-82.8); PLATELET COUNT 175 K/MM3 (134-434); RDW 14.3 % (11.6-15.6); WHITE BLOOD COUNT 6.6 K/mm3 (4.0-10.0)
[2017-04-07 07:50] LABS: ALBUMIN 3.7 g/dl (3.4-5.0); ANION GAP 10 (8-16); CALCIUM 9.5 mg/dL (8.5-10.1); CO2 24 mmol/L (21-32); CREATININE 0.7 mg/dL (0.55-1.02); GLUCOSE,RANDOM 161 mg/dL (74-106); SGOT/AST 36 U/L (15-37); SGPT/ALT 65 U/L (12-78)
[2017-04-07 07:52] LABS: ALK PHOS 76 U/L (45-117); BILIRUBIN,TOTAL 1.2 mg/dL (0.2-1.0); TOT PROT 6.9 g/dl (6.4-8.2)
[2017-04-07] MEDS ORDERED: PATIENT'S OWN MEDICATION (NON-FORMULARY) (Canagliflozin [Invokana] 100 MG) PO SCH (10:00)
--- NOTE | 2017-04-07 10:30 | PN ---
Progress Note (short form) - Note Progress Note: Subjective: The patient was seen and examined at the bedside, she has no complaints at this time. Current Medications Generic Name Dose Route Start Last Admin Trade Name Freq PRN Reason Stop Dose Admin Acetaminophen 650 mg 04/06/17 16:17 Tylenol - PO Q4H PRN FEVER OR PAIN Amlodipine Besylate 10 mg 04/07/17 10:00 Norvasc - PO DAILY JUSTEN Calcium Carbonate 500 mg 04/06/17 22:00 04/06/17 22:53 Os-Alfonso 500mg - PO 500 mg BID JUSTEN Administration Cholecalciferol 5,000 unit 04/07/17 10:00 Vitamin D3 - PO DAILY JUSTEN Clopidogrel Bisulfate 75 mg 04/07/17 10:00 Plavix - PO DAILY JUSTEN Docusate Sodium 100 mg 04/06/17 22:00 04/07/17 06:10 Colace - PO 100 mg TID JUSTEN Administration Glimepiride 2 mg 04/07/17 07:00 04/07/17 06:20 Amaryl - PO 2 mg BIDAC JUSTEN Administration Heparin Sodium (Porcine) 5,000 unit 04/06/17 22:00 04/06/17 22:53 Heparin - SQ 5,000 unit BID JUSTEN Administration Piperacillin Sod/Tazobactam 50 mls @ 100 mls/hr 04/07/17 02:00 04/07/17 01:22 Sod 3.375 gm/ Dextrose IVPB 100 mls/hr Q8H-IV JUSTEN Administration Protocol Lactobacillus Acidophilus 1 tab 04/06/17 22:00 04/06/17 22:53 Bacid - PO 1 tab BID JUSTEN Administration Non-Formulary Medication 100 mg 04/07/17 10:00 Canagliflozin [Invokana] PO DAILY JUSTEN Non-Formulary Medication 1,000 mg 04/06/17 22:00 Glucosamine Sulfate Dipot Chlr [Glucosamine] PO BID JUSTEN Non-Formulary Medication 1 each 04/07/17 22:00 Patient's Own Med PO HS JUSTEN Ondansetron HCl 4 mg 04/06/17 16:17 Zofran Injection IVPB Q6H PRN NAUSEA Pantoprazole Sodium 40 mg 04/07/17 10:00 Protonix - PO DAILY JUSTEN Sitagliptin Phosphate 100 mg 04/07/17 07:00 04/07/17 06:10 Januvia - PO 100 mg DAILY@0700 JUSTEN Administration Objective: Vital Signs Period Temp Pulse Resp BP Sys/Haney Pulse Ox Last 24 Hr 97.3 F-98.6 F 73-93 18-20 122-138/72-82 95-100 Physical Exam: General: NAD, A&Ox3 Lungs: CTA bilaterally Heart: RRR, S1S2 Abd: Soft, non-tender, non-distended. Normoactive bowel sounds Ext: Warm, well-perfused. 2+ DP/PT bilaterally Neuro: RUE/RLQ 4/5 muscle strength. LUE/LLE 5/5 muscle strength. Decrease ROM in right shoulder with active and passive ROM CBCD WBC 6.6 K/mm3 (4.0-10.0) 04/07/17 06:00 RBC 5.81 M/mm3 (3.60-5.2) H 04/07/17 06:00 Hgb 15.9 GM/dL (10.7-15.3) H 04/07/17 06:00 Hct 46.5 % (32.4-45.2) H 04/07/17 06:00 MCV 80.2 fl (80-96) 04/07/17 06:00 MCHC 34.1 g/dl (32.0-36.0) 04/07/17 06:00 RDW 14.3 % (11.6-15.6) 04/07/17 06:00 Plt Count 175 K/MM3 (134-434) 04/07/17 06:00 MPV 9.1 fl (7.5-11.1) 04/07/17 06:00 CMP Sodium 140 mmol/L (136-145) 04/07/17 06:00 Potassium 4.0 mmol/L (3.5-5.1) 04/07/17 06:00 Chloride 106 mmol/L (98-107) 04/07/17 06:00 Carbon Dioxide 24 mmol/L (21-32) 04/07/17 06:00 Anion Gap 10 (8-16) 04/07/17 06:00 BUN 13 mg/dL (7-18) D 04/07/17 06:00 Creatinine 0.7 mg/dL (0.55-1.02) 04/07/17 06:00 Creat Clearance w eGFR > 60 (>60) 04/07/17 06:00 Random Glucose 161 mg/dL (74-106) H 04/07/17 06:00 Calcium 9.5 mg/dL (8.5-10.1) 04/07/17 06:00 Total Bilirubin 1.2 mg/dL (0.2-1.0) H 04/07/17 06:00 AST 36 U/L (15-37) 04/07/17 06:00 ALT 65 U/L (12-78) 04/07/17 06:00 Alkaline Phosphatase 76 U/L (45-117) 04/07/17 06:00 Total Protein 6.9 g/dl (6.4-8.2) 04/07/17 06:00 Albumin 3.7 g/dl (3.4-5.0) 04/07/17 06:00 Microbiology 04/02/17 12:15 Urine - Urine Clean Catch Urine Culture - Final Escherichia Coli 04/02/17 05:19 Blood - Peripheral Venous Blood Culture - Final Staphylococcus Epidermidis 04/02/17 04:38 Urine - Urine - Catheterized Urine Culture - Final Escherichia Coli 04/03/17 08:40 Blood - Peripheral Venous Blood Culture - Preliminary NO GROWTH OBTAINED AFTER 96 HOURS, INCUBATION TO CONTINUE FOR 1 DAYS. 04/03/17 08:35 Blood - Peripheral Venous Blood Culture - Preliminary NO GROWTH OBTAINED AFTER 96 HOURS, INCUBATION TO CONTINUE FOR 1 DAYS. 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 - New Patient This patient is new to me today: Yes Date on this admission: 04/07/17 - Critical Care Critical Care patient: No
[2017-04-07] MEDS ORDERED: DEXTROSE 5%-WATER - 50 ML IVPB ONE ×2 (10:45→23:47)
[2017-04-07] MEDS ORDERED: PIPERACILLIN/TAZOBACTAM 3.375 GM VIAL IVPB ONE ×3 (10:45→23:47)
[2017-04-07] MEDS: HEPARIN NA (PORCINE) 5,000 UNITS/ML 1ML VIAL SQ SCH ×2 (10:51→21:52)
[2017-04-07] MEDS: CLOPIDOGREL BISULFATE 75 MG TABLET (FP) PO SCH (10:52)
[2017-04-07] MEDS: CHOLECALCIFEROL (VITAMIN D3) 1,000 UNIT TABLET (FP) PO SCH (10:52)
[2017-04-07] MEDS: LACTOBACILLUS ACIDOPHILUS 1 EACH TAB (FP) PO SCH ×2 (10:53→21:51)
[2017-04-07] MEDS: PANTOPRAZOLE 40 MG TABLET (FP) PO SCH (10:53)
[2017-04-07] MEDS: amLODIPine BESYLATE 5 MG TABLET (FP) PO SCH (10:53)
[2017-04-07] MEDS: CALCIUM (OYSTER SHELL) 500 MG TABLET (FP) PO SCH ×2 (10:53→21:51)
--- NOTE | 2017-04-07 13:31 | PN ---
Progress Note, Physician History of Present Illness: doing well no complaints - Current Medication List Current Medications: Active Medications Acetaminophen (Tylenol -) 650 mg PO Q4H PRN PRN Reason: FEVER OR PAIN Amlodipine Besylate (Norvasc -) 10 mg PO DAILY [facility] Last Admin: 04/07/17 10:53 Dose: 10 mg Calcium Carbonate (Os-Alfonso 500mg -) 500 mg PO BID [facility] Last Admin: 04/07/17 10:53 Dose: 500 mg Cholecalciferol (Vitamin D3 -) 5,000 unit PO DAILY [facility] Last Admin: 04/07/17 10:52 Dose: 5,000 unit Clopidogrel Bisulfate (Plavix -) 75 mg PO DAILY [facility] Last Admin: 04/07/17 10:52 Dose: 75 mg Docusate Sodium (Colace -) 100 mg PO TID [facility] Last Admin: 04/07/17 06:10 Dose: 100 mg Glimepiride (Amaryl -) 2 mg PO BIDAC [facility] Last Admin: 04/07/17 06:20 Dose: 2 mg Heparin Sodium (Porcine) (Heparin -) 5,000 unit SQ BID [facility] Last Admin: 04/07/17 10:51 Dose: 5,000 unit Piperacillin Sod/Tazobactam (Sod 3.375 gm/ Dextrose) 50 mls @ 100 mls/hr IVPB Q8H-IV JUSTEN PRN Reason: Protocol Last Admin: 04/07/17 10:48 Dose: 100 mls/hr Lactobacillus Acidophilus (Bacid -) 1 tab PO BID [facility] Last Admin: 04/07/17 10:53 Dose: 1 tab Non-Formulary Medication (Canagliflozin [Invokana]) 100 mg PO DAILY [facility] Non-Formulary Medication (Glucosamine Sulfate Dipot Chlr [Glucosamine]) 1,000 mg PO BID [facility] Non-Formulary Medication (Patient's Own Med) 1 each PO [facility] Ondansetron HCl (Zofran Injection) 4 mg IVPB Q6H PRN PRN Reason: NAUSEA Pantoprazole Sodium (Protonix -) 40 mg PO DAILY [facility] Last Admin: 04/07/17 10:53 Dose: 40 mg Sitagliptin Phosphate (Januvia -) 100 mg PO DAILY@0700 [facility] Last Admin: 04/07/17 06:10 Dose: 100 mg - Objective Vital Signs: Vital Signs Temperature 98.6 F 04/07/17 13:18 Pulse Rate 76 04/07/17 13:18 Respiratory Rate 18 04/07/17 13:18 Blood Pressure 116/70 04/07/17 13:18 O2 Sat by Pulse Oximetry (%) 100 04/06/17 17:21 Constitutional: Yes: No Distress, Calm Cardiovascular: Yes: Regular Rate and Rhythm Respiratory: Yes: Regular, CTA Bilaterally Gastrointestinal: Yes: Normal Bowel Sounds, Soft Musculoskeletal: Yes: WNL Extremities: Yes: WNL Neurological: Yes: Alert, Oriented Psychiatric: Yes: Alert Labs: CBC, BMP 04/07/17 06:00 04/07/17 06:00 Assessment/Plan Problem List - Problem (1) Positive blood cultures Code(s): R78.81 - BACTEREMIA (2) Cerebrovascular accident Code(s): I63.9 - CEREBRAL INFARCTION, UNSPECIFIED (3) HTN (hypertension) Code(s): I10 - ESSENTIAL (PRIMARY) HYPERTENSION (4) HLD (hyperlipidemia) Code(s): E78.5 - HYPERLIPIDEMIA, UNSPECIFIED (5) Diabetes Code(s): E11.9 - TYPE 2 DIABETES MELLITUS WITHOUT COMPLICATIONS (6) Erythrocytosis Code(s): D75.1 - SECONDARY POLYCYTHEMIA plan continue current mgmt blood cx ordered
[2017-04-08] MEDS: PIPERACILLIN/TAZOB 3.375 GM 3.375 GM in DEXTROSE 5%-WATER - 50 ML IVPB SCH ×3 (01:02→18:00)
[2017-04-08] MEDS: sitaGLIPtin PHOSPHATE 50 MG TABLET PO SCH (06:06)
[2017-04-08] MEDS: DOCUSATE SODIUM 100 MG CAPSULE (FP) PO SCH ×3 (06:06→22:30)
[2017-04-08] MEDS: GLIMEPIRIDE 4 MG TABLET (FP) PO SCH (06:07)
[2017-04-08] MEDS ORDERED: PIPERACILLIN/TAZOBACTAM 3.375 GM VIAL IVPB ONE (10:26)
[2017-04-08] MEDS ORDERED: DEXTROSE 5%-WATER - 50 ML IVPB ONE (10:26)
--- NOTE | 2017-04-08 10:47 | PN ---
Physical Exam: SUBJECTIVE: Patient seen and examined. Feeling well, no complaints. OBJECTIVE: Discussed with microbiology - speciation of 04/02 anaerobic culture is expected at 2pm today. Vital Signs Period Temp Pulse Resp BP Sys/Haney Pulse Ox Last 24 Hr 97.6 F-98.6 F 67-84 18-20 116-132/69-72 97 GENERAL: The patient is awake, alert, and fully oriented, in no acute distress. HEAD: Normal with no signs of trauma. EYES: PERRL, extraocular movements intact, sclera anicteric, conjunctiva clear. No ptosis. ENT: Ears normal, nares patent, oropharynx clear without exudates, moist mucous membranes. NECK: Trachea midline, full range of motion, supple. LUNGS: Breath sounds equal, clear to auscultation bilaterally, no wheezes, no crackles, no accessory muscle use. HEART: Regular rate and rhythm, S1, S2 without murmur, rub or gallop. ABDOMEN: Soft, nontender, nondistended, normoactive bowel sounds, no guarding, no rebound, no hepatosplenomegaly, no masses. EXTREMITIES: 2+ pulses, warm, well-perfused, no edema. NEUROLOGICAL: Cranial nerves II through XII grossly intact. Normal speech, gait not observed. PSYCH: Normal mood, normal affect. SKIN: Warm, dry, normal turgor, no rashes or lesions noted Laboratory Results - last 24 hr 04/07/17 04/07/17 04/08/17 17:08 21:05 06:05 POC Glucometer 116 173 141 Active Medications Generic Name Dose Route Start Last Admin Trade Name Jeffq PRN Reason Stop Dose Admin Acetaminophen 650 mg 04/06/17 16:17 Tylenol - PO Q4H PRN FEVER OR PAIN Amlodipine Besylate 10 mg 04/07/17 10:00 04/07/17 10:53 Norvasc - PO 10 mg DAILY JUSTEN Administration Calcium Carbonate 500 mg 04/06/17 22:00 04/07/17 21:51 Os-Alfonso 500mg - PO 500 mg BID JUSTEN Administration Cholecalciferol 5,000 unit 04/07/17 10:00 04/07/17 10:52 Vitamin D3 - PO 5,000 unit DAILY JUSTEN Administration Clopidogrel Bisulfate 75 mg 04/07/17 10:00 04/07/17 10:52 Plavix - PO 75 mg DAILY JUSTEN Administration Docusate Sodium 100 mg 04/06/17 22:00 04/08/17 06:06 Colace - PO 100 mg TID JUSTEN Administration Glimepiride 2 mg 04/07/17 07:00 04/08/17 06:07 Amaryl - PO 2 mg BIDAC JUSTEN Administration Heparin Sodium (Porcine) 5,000 unit 04/06/17 22:00 04/07/17 21:52 Heparin - SQ 5,000 unit BID JUSTEN Administration Piperacillin Sod/Tazobactam 50 mls @ 100 mls/hr 04/07/17 02:00 04/08/17 01:02 Sod 3.375 gm/ Dextrose IVPB 100 mls/hr Q8H-IV JUSTEN Administration Protocol Lactobacillus Acidophilus 1 tab 04/06/17 22:00 04/07/17 21:51 Bacid - PO 1 tab BID JUSTEN Administration Non-Formulary Medication 100 mg 04/07/17 10:00 Canagliflozin [Invokana] PO DAILY [facility] Non-Formulary Medication 1,000 mg 04/06/17 22:00 Glucosamine Sulfate Dipot Chlr [Glucosamine] PO BID JUSTEN Non-Formulary Medication 1 each 04/07/17 22:00 Patient's Own Med PO HS JUSTEN Ondansetron HCl 4 mg 04/06/17 16:17 Zofran Injection IVPB Q6H PRN NAUSEA Pantoprazole Sodium 40 mg 04/07/17 10:00 04/07/17 10:53 Protonix - PO 40 mg DAILY JUSTEN Administration Sitagliptin Phosphate 100 mg 04/07/17 07:00 04/08/17 06:06 Januvia - PO 100 mg DAILY@0700 JUSTEN Administration ASSESSMENT/PLAN: 81 year old female with a history of CVA with residual RUE weakness, HTN, HLD, NIDDM who was recalled on 04/06 after being discharged that same day for a positive blood culture. Plan: 1) ID: E.coli UTI, anaerobic gram positive bacilli blood culture - Blood culture (anaerobic) from 04/02 with gram positive bacilli. Per microbiology, should be speciated at 2pm today. 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 Lazo, need to wait for tomorrow before dc to ensure repeat cultures are not growing the same. Problem List - Problems (1) Positive blood cultures Code(s): R78.81 - BACTEREMIA (2) Cerebrovascular accident Code(s): I63.9 - CEREBRAL INFARCTION, UNSPECIFIED (3) HTN (hypertension) Code(s): I10 - ESSENTIAL (PRIMARY) HYPERTENSION (4) HLD (hyperlipidemia) Code(s): E78.5 - HYPERLIPIDEMIA, UNSPECIFIED (5) Diabetes Code(s): E11.9 - TYPE 2 DIABETES MELLITUS WITHOUT COMPLICATIONS (6) Erythrocytosis Code(s): D75.1 - SECONDARY POLYCYTHEMIA (7) DVT prophylaxis Code(s): [id number] -
[2017-04-08] MEDS: LACTOBACILLUS ACIDOPHILUS 1 EACH TAB (FP) PO SCH ×2 (10:48→22:30)
[2017-04-08] MEDS: CALCIUM (OYSTER SHELL) 500 MG TABLET (FP) PO SCH ×2 (10:48→22:30)
[2017-04-08] MEDS: PANTOPRAZOLE 40 MG TABLET (FP) PO SCH (10:48)
[2017-04-08] MEDS: HEPARIN NA (PORCINE) 5,000 UNITS/ML 1ML VIAL SQ SCH ×2 (10:49→22:30)
[2017-04-08] MEDS: CLOPIDOGREL BISULFATE 75 MG TABLET (FP) PO SCH (10:49)
[2017-04-08] MEDS: amLODIPine BESYLATE 5 MG TABLET (FP) PO SCH (10:49)
[2017-04-08] MEDS: CHOLECALCIFEROL (VITAMIN D3) 1,000 UNIT TABLET (FP) PO SCH (10:49)
--- NOTE | 2017-04-08 14:27 | PN ---
Progress Note, Physician History of Present Illness: doing well no complaints - Current Medication List Current Medications: Active Medications Acetaminophen (Tylenol -) 650 mg PO Q4H PRN PRN Reason: FEVER OR PAIN Amlodipine Besylate (Norvasc -) 10 mg PO DAILY [facility] Last Admin: 04/08/17 10:49 Dose: 10 mg Calcium Carbonate (Os-Alfonso 500mg -) 500 mg PO BID [facility] Last Admin: 04/08/17 10:48 Dose: 500 mg Cholecalciferol (Vitamin D3 -) 5,000 unit PO DAILY [facility] Last Admin: 04/08/17 10:49 Dose: 5,000 unit Clopidogrel Bisulfate (Plavix -) 75 mg PO DAILY [facility] Last Admin: 04/08/17 10:49 Dose: 75 mg Docusate Sodium (Colace -) 100 mg PO TID [facility] Last Admin: 04/08/17 06:06 Dose: 100 mg Glimepiride (Amaryl -) 2 mg PO BIDAC [facility] Last Admin: 04/08/17 06:07 Dose: 2 mg Heparin Sodium (Porcine) (Heparin -) 5,000 unit SQ BID [facility] Last Admin: 04/08/17 10:49 Dose: 5,000 unit Piperacillin Sod/Tazobactam (Sod 3.375 gm/ Dextrose) 50 mls @ 100 mls/hr IVPB Q8H-IV [facility]EN PRN Reason: Protocol Last Admin: 04/08/17 10:48 Dose: 100 mls/hr Lactobacillus Acidophilus (Bacid -) 1 tab PO BID [facility] Last Admin: 04/08/17 10:48 Dose: 1 tab Non-Formulary Medication (Canagliflozin [Invokana]) 100 mg PO DAILY [facility] Non-Formulary Medication (Glucosamine Sulfate Dipot Chlr [Glucosamine]) 1,000 mg PO BID [facility] Non-Formulary Medication (Patient's Own Med) 1 each PO [facility] Ondansetron HCl (Zofran Injection) 4 mg IVPB Q6H PRN PRN Reason: NAUSEA Pantoprazole Sodium (Protonix -) 40 mg PO DAILY [facility] Last Admin: 04/08/17 10:48 Dose: 40 mg Sitagliptin Phosphate (Januvia -) 100 mg PO DAILY@0700 [facility] Last Admin: 04/08/17 06:06 Dose: 100 mg - Objective Vital Signs: Vital Signs Temperature 97.6 F 04/08/17 05:57 Pulse Rate 84 04/08/17 05:57 Respiratory Rate 20 04/08/17 05:57 Blood Pressure 132/69 04/08/17 05:57 O2 Sat by Pulse Oximetry (%) 97 04/07/17 20:07 Constitutional: Yes: No Distress, Calm Cardiovascular: Yes: Regular Rate and Rhythm Respiratory: Yes: Regular, CTA Bilaterally Gastrointestinal: Yes: Normal Bowel Sounds, Soft Musculoskeletal: Yes: WNL Extremities: Yes: WNL Neurological: Yes: Alert, Oriented Psychiatric: Yes: Alert, Oriented Labs: CBC, BMP 04/07/17 06:00 04/07/17 06:00 Assessment/Plan Problem List - Problem (1) Positive blood cultures Code(s): R78.81 - BACTEREMIA (2) Cerebrovascular accident Code(s): I63.9 - CEREBRAL INFARCTION, UNSPECIFIED (3) HTN (hypertension) Code(s): I10 - ESSENTIAL (PRIMARY) HYPERTENSION (4) HLD (hyperlipidemia) Code(s): E78.5 - HYPERLIPIDEMIA, UNSPECIFIED (5) Diabetes Code(s): E11.9 - TYPE 2 DIABETES MELLITUS WITHOUT COMPLICATIONS (6) Erythrocytosis Code(s): D75.1 - SECONDARY POLYCYTHEMIA plan continue current mgmt last blood cx report noted
[2017-04-09] MEDS ORDERED: PIPERACILLIN/TAZOBACTAM 3.375 GM VIAL IVPB ONE ×2 (01:04→09:58)
[2017-04-09] MEDS ORDERED: DEXTROSE 5%-WATER - 50 ML IVPB ONE ×2 (01:04→09:58)
[2017-04-09] MEDS: PIPERACILLIN/TAZOB 3.375 GM 3.375 GM in DEXTROSE 5%-WATER - 50 ML IVPB SCH ×2 (02:06→10:01)
[2017-04-09] MEDS: GLIMEPIRIDE 4 MG TABLET (FP) PO SCH (06:43)
[2017-04-09] MEDS: sitaGLIPtin PHOSPHATE 50 MG TABLET PO SCH (06:44)
[2017-04-09] MEDS: DOCUSATE SODIUM 100 MG CAPSULE (FP) PO SCH ×2 (06:44→14:36)
--- NOTE | 2017-04-09 09:57 | DS ---
Physical Exam: SUBJECTIVE: Patient seen and examined. Still without complaints. OBJECTIVE: Repeat blood cultures without growth. Vital Signs Period Temp Pulse Resp BP Sys/Haney Pulse Ox Last 24 Hr 97.5 F-98.8 F 68-80 18-20 109-127/63-79 97-97 PHYSICAL EXAM GENERAL: The patient is awake, alert, and fully oriented, in no acute distress. HEAD: Normal with no signs of trauma. EYES: PERRL, extraocular movements intact, sclera anicteric, conjunctiva clear. ENT: Ears normal, nares patent, oropharynx clear without exudates, moist mucous membranes. NECK: Trachea midline, full range of motion, supple. LUNGS: Breath sounds equal, clear to auscultation bilaterally, no wheezes, no crackles, no accessory muscle use. HEART: Regular rate and rhythm, S1, S2 without murmur, rub or gallop. ABDOMEN: Soft, nontender, nondistended, normoactive bowel sounds, no guarding, no rebound, no hepatosplenomegaly, no masses. EXTREMITIES: 2+ pulses, warm, well-perfused, no edema. NEUROLOGICAL: Cranial nerves II through XII grossly intact. Normal speech, gait not observed. PSYCH: Normal mood, normal affect. SKIN: Warm, dry, normal turgor, no rashes or lesions noted. LABS Laboratory Results - last 24 hr 04/08/17 04/08/17 04/09/17 12:32 17:18 06:41 POC Glucometer 124 195 142 HOSPITAL COURSE: This is an 81 year old female with a history of multiple CVAs with residual RUE weakness, HTN, HLD, NIDDM, and chronic erythrocytosis who was admitted here from 04/02-04/06 with seizure-like activity. CTH showed no acute pathology and seizures did not recur. She was treated with Ceftriaxone for vallejo- sensitive E. coli UTI and discharged, however was re-called the same day when one anaerobic blood culture grew gram positive bacilli. She was placed on Zosyn in consultation with ID. Final speciation from that 04/02 culture was Proprionibacterium acnes, a likely contaminant. Cultures were repeated on 04/03 with no growth (final) and again on 04/08 with no growth to date. She is asymptomatic. Will discharge with PCP followup. Return precautions reviewed with patient and family. Date of Admission:04/06/17 Date of Discharge: 04/09/17 Minutes to complete discharge: 35 Discharge Summary Reason For Visit: POSITIVE BLOOD CULTURE Current Active Problems DVT prophylaxis (Acute) Diabetes (Acute) Erythrocytosis (Acute) HLD (hyperlipidemia) (Acute) HTN (hypertension) (Acute) Positive blood cultures (Acute) Condition: Good - Instructions Diet, Activity, Other Instructions: -Continue all of your prescribed medications -No further antibiotics are necessary -Please follow up with Dr. Saenz next week -Return here for fevers/chills or any other concerning symptoms Referrals: STAFF,NOT ON [Primary Care Provider] - - Home Medications Comprehensive Discharge Medication List: Ambulatory Orders Amlodipine Besylate [Norvasc -] 10 mg PO DAILY 04/02/17 Calcium Carbonate [Calcium] 500 mg PO BID 04/02/17 Canagliflozin [Invokana] 100 mg PO DAILY 04/02/17 Cholecalciferol (Vitamin D3) [Vitamin D3 -] 5,000 unit PO DAILY 04/02/17 Clopidogrel Bisulfate [Plavix -] 75 mg PO DAILY 04/02/17 Glimepiride [Amaryl -] 2 mg PO BID 04/02/17 Glucosamine Sulfate Dipot Chlr [Glucosamine] 1,000 mg PO BID 04/02/17 L.acidoph,Paracasei, B.lactis [Probiotic] 1 each PO BID 04/02/17 Simvastatin [Zocor -] 20 mg PO HS 04/02/17 Amoxicillin/Potassium Clav [Augmentin 875-125 Tablet] 1 each PO BID #10 tablet 04/06/17 Pantoprazole Sodium [Protonix -] 40 mg PO DAILY tab 04/06/17 Sitagliptin Phosphate [Januvia] 100 mg PO DAILY #0 tab 04/06/17 Problem List - Problems (1) Positive blood cultures Code(s): R78.81 - BACTEREMIA (2) Cerebrovascular accident Code(s): I63.9 - CEREBRAL INFARCTION, UNSPECIFIED (3) HTN (hypertension) Code(s): I10 - ESSENTIAL (PRIMARY) HYPERTENSION (4) HLD (hyperlipidemia) Code(s): E78.5 - HYPERLIPIDEMIA, UNSPECIFIED (5) Diabetes Code(s): E11.9 - TYPE 2 DIABETES MELLITUS WITHOUT COMPLICATIONS (6) Erythrocytosis Code(s): D75.1 - SECONDARY POLYCYTHEMIA (7) DVT prophylaxis Code(s): [id number] - This patient is new to me today: Yes Date on this admission: 04/09/17 Emergency Visit: Yes ED Registration Date: 04/06/17 Care time: The patient presented to the Emergency Department on the above date and was hospitalized for further evaluation of their emergent condition. Critical Care patient: No - Discharge Referral Referred to [facility] Med P.C.: No
[2017-04-09] MEDS: CALCIUM (OYSTER SHELL) 500 MG TABLET (FP) PO SCH (10:00)
[2017-04-09] MEDS: PANTOPRAZOLE 40 MG TABLET (FP) PO SCH (10:00)
[2017-04-09] MEDS: CHOLECALCIFEROL (VITAMIN D3) 1,000 UNIT TABLET (FP) PO SCH (10:00)
[2017-04-09] MEDS: LACTOBACILLUS ACIDOPHILUS 1 EACH TAB (FP) PO SCH (10:00)
[2017-04-09] MEDS: amLODIPine BESYLATE 5 MG TABLET (FP) PO SCH (10:00)
[2017-04-09] MEDS: HEPARIN NA (PORCINE) 5,000 UNITS/ML 1ML VIAL SQ SCH (10:01)
[2017-04-09] MEDS: CLOPIDOGREL BISULFATE 75 MG TABLET (FP) PO SCH (10:01)
[2017-04-09 12:17] VITALS: PULSE 92; TEMP 97.6
[2017-04-09 12:19] VITALS: BP 115/68
== END 2017-04-09 13:00 | disposition home or self-care (01) | DRG 872 ==
LOC: JER 15:14 → JERBED 16:16 → J7W 17:35
PROVIDERS: ADMIT Internal Medicine; ATTEND Registered Nurse Emergency
DX: R78.81 Bacteremia (principal); I69.351 Hemiplegia and hemiparesis following cerebral infarction affecting right dominant side; I10 Essential (primary) hypertension; E78.5 Hyperlipidemia, unspecified; E11.9 Type 2 diabetes mellitus without complications; D75.1 Secondary polycythemia
CPT/HCPCS: 36415; 80053; 85025; 87040; 99282-25; J1644

== ENCOUNTER 2017-07-13 08:09 | Day surgery (SDC) | payer OTHER, BC ==
[2017-07-07 10:50] VITALS: BMI 27.3
[2017-07-13 08:57] VITALS: TEMP 97.8
[2017-07-13] MEDS ORDERED: MIDAZOLAM HCL 2 MG/2 ML SINGLE DOSE VIAL ONE (09:02)
[2017-07-13] MEDS ORDERED: LIDOCAINE HCL 2% (20ML MULTI-DOSE VIAL) NR ONE (09:11)
[2017-07-13] MEDS ORDERED: oxyCODONE HCL 5 MG TABLET PO PRN (10:05)
[2017-07-13] MEDS ORDERED: ACETAMINOPHEN 325 MG TABLET (FP) PO PRN (10:05)
[2017-07-13] MEDS ORDERED: ONDANSETRON 4 MG/2 ML VIAL IVPUSH PRN (10:05)
[2017-07-13 11:18] VITALS: BP 138/62; PULSE 72
--- NOTE | 2017-07-15 08:44 | OP ---
DATE OF OPERATION: 07/13/2017 PREOPERATIVE DIAGNOSIS: Left carpal tunnel syndrome. POSTOPERATIVE DIAGNOSIS: Left carpal tunnel syndrome. OPERATIVE PROCEDURE: Left carpal tunnel release. ANESTHESIA: Local with sedation. COMPLICATIONS: None. ESTIMATED BLOOD LOSS: Minimal. INDICATION FOR PROCEDURE: The patient is an 82-year-old female with the above finding, indicated for operative treatment. Risks, benefits, and alternatives were discussed with the patient at length. Proper informed consent was obtained. PROCEDURE: After proper identification of the patient and correct operative site, patient was brought to the operating room and placed supine on the operating table. All prominences were well padded. Sedation was given by the anesthesiologist and local anesthesia was given with 2% lidocaine. The left upper extremity was prepped and draped in the usual sterile fashion. A well-padded tourniquet was placed over the sterile prep. Esmarch bandage used to exsanguinate the left upper extremity. Tourniquet inflated to 250 mmHg. Longitudinal incision made over the volar aspect of the wrist. Incision was taken sharply through the skin, with blunt and sharp dissection through subcutaneous tissues. Palmar fascia was incised longitudinally. Transverse carpal ligament was divided longitudinally along with the distal 4 cm of antebrachial fascia under direct visualization with loupe magnification. This provided complete release of the median nerve at the wrist. The wound was irrigated with copious amounts of normal sterile saline and repaired with a 5-0 nylon suture. Sterile dressings were applied. Patient was reversed from anesthesia and brought to the recovery room in stable condition. She tolerated the procedure well. MD LIBERTAD Dewitt M.D. [id number]
== END 2017-07-13 11:22 | disposition home or self-care (01) ==
LOC: FASU 08:09
PROVIDERS: ATTEND Orthopaedic Surgery Hand Surgery
PROC: 01N50ZZ Release Median Nerve, Open Approach (ICD-10-PCS; principal; 2017-07-13 10:15)
DX: G56.02 Carpal tunnel syndrome, left upper limb (principal)

== ENCOUNTER 2018-08-15 08:04 | Inpatient (IN) | payer BC, OTHER ==
--- NOTE | 2018-08-15 08:35 | PDOC ---
History of Present Illness - General Chief Complaint: Syncope/Near Syncope Stated Complaint: FALL,HEAD INJURY Time Seen by Provider: 08/15/18 08:35 - History of Present Illness Initial Comments: 08/15/18 08:36 Ms. Lucas is an 81 yo female w/ pmh of TIA (minor RUE residual weakness and drags RLE when walking), HTN, HLD, DM who presents for evaluation s/p fall earlier today. Per patient / family patient got up to unlock door when "the next thing she knew" she was on the ground. Patient denies any pain however is dizzy upon sitting up at this time. Patient at baseline per family. The patient denies chest pain, shortness of breath, and headache. Denies fever, chills, nausea, vomit, diarrhea and constipation. Denies dysuria, frequency, urgency and hematuria. Past History - Past Medical History Allergies/Adverse Reactions: Allergies Allergy/AdvReac Type Severity Reaction Status Date / Time atorvastatin calcium Allergy Verified 08/15/18 08:50 [From Lipitor] Home Medications: Ambulatory Orders Canagliflozin [Invokana] 100 mg PO DAILY 04/02/17 Cholecalciferol (Vitamin D3) [Vitamin D3 -] 5,000 unit PO DAILY 04/02/17 Clopidogrel Bisulfate [Plavix -] 75 mg PO DAILY 04/02/17 Glimepiride [Amaryl -] 2 mg PO BID 04/02/17 Glucosamine Sulfate Dipot Chlr [Glucosamine] 1,000 mg PO BID 04/02/17 L.acidoph,Paracasei, B.lactis [Probiotic] 1 each PO DAILY 04/02/17 Aspirin [Lo-Dose Aspirin EC] 81 mg PO DAILY 07/07/17 Calcium Citrate 333 gm PO HS 08/15/18 Calcium Citrate 666 gm PO DAILY 08/15/18 Cholesterol 20 mg PO BID 08/15/18 Loratadine [Claritin] 10 mg PO HS 08/15/18 Multivitamins [Tab-A-Vit -] 1 tab PO DAILY 08/15/18 [place]-3 Fatty Acids [[place]-3] 1,000 mg PO BID 08/15/18 Sitagliptin Phosphate [Januvia] 50 mg PO DAILY 08/15/18 Anemia: No Asthma: No Cancer: No Cardiac Disorders: No 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) COPD: No CHF: No Dementia: No Diabetes: Yes GI Disorders: No Disorders: No HTN: Yes Hypercholesterolemia: Yes Liver Disease: No Seizures: No Thyroid Disease: No - Surgical History Abdominal Surgery: No Appendectomy: No Cardiac Surgery: Yes (REVEAL LINQ cardiac monito implanted [employer] MRI safe) Cholecystectomy: Yes Lung Surgery: No Neurologic Surgery: No Orthopedic Surgery: No - Suicide/Smoking/Psychosocial Hx Smoking History: Never smoked Have you smoked in the past 12 months: No Information on smoking cessation initiated: No Hx Alcohol Use: No Drug/Substance Use Hx: No Substance Use Type: None Hx Substance Use Treatment: No Review of Systems - Review of Systems Comments:: 08/15/18 09:11 GENERAL/CONSTITUTIONAL: +Fall / possible LOC as described. No fever or chills. No weakness. HEAD, EYES, EARS, NOSE AND THROAT: No change in vision. No ear pain or discharge. No sore throat. CARDIOVASCULAR: No chest pain or shortness of breath RESPIRATORY: No cough, wheezing, or hemoptysis. GASTROINTESTINAL: No nausea, vomiting, diarrhea or constipation. GENITOURINARY: No dysuria, frequency, or change in urination. MUSCULOSKELETAL: No joint or muscle swelling or pain. No neck or back pain. SKIN: No rash NEUROLOGIC: No headache, vertigo or change in strength/sensation. ENDOCRINE: No increased thirst. No abnormal weight change HEMATOLOGIC/LYMPHATIC: No anemia, easy bleeding, or history of blood clots. ALLERGIC/IMMUNOLOGIC: No hives or skin allergy. *Physical Exam - Vital Signs Last Vital Signs Temp Pulse Resp BP Pulse Ox 97.7 F 93 H 18 149/78 97 08/15/18 08:17 08/15/18 08:17 08/15/18 08:17 08/15/18 08:17 08/15/18 08:17 - Physical Exam Comments: 08/15/18 09:12 GENERAL: Awake, alert, and fully oriented, in no acute distress HEAD: No signs of trauma, normocephalic, atraumatic EYES: PERRLA, EOMI, sclera anicteric, conjunctiva clear ENT: Auricles normal inspection, hearing grossly normal, nares patent, oropharynx clear without exudates. Moist mucosa NECK: Normal ROM, supple, no lymphadenopathy, JVD, or masses LUNGS: No distress, speaks full sentences, clear to auscultation bilaterally HEART: Regular rate and rhythm, normal S1 and S2, no murmurs, rubs or gallops, peripheral pulses normal and equal bilaterally. ABDOMEN: Soft, nontender, normoactive bowel sounds. No guarding, no rebound. No masses EXTREMITIES: Normal inspection, Normal range of motion, no edema. No clubbing or cyanosis. NEUROLOGICAL: Cranial nerves II through XII grossly intact. Normal speech, no focal sensorimotor deficits SKIN: Warm, Dry, normal turgor, no rashes or lesions noted. ED Treatment Course - LABORATORY CBC & Chemistry Diagram: 08/15/18 09:29 08/15/18 09:29 Medical Decision Making - Medical Decision Making 08/15/18 10:00 Ms. Lucas is an 83 yo female w/ pmh as described who presents for evaluation s/ p unwitnessed fall earlier today. Workup started w/ labs and CT for r/o causes and sequelae. 08/15/18 10:15 Radiology called, patient noted to have Isolated R subdural w/out shift or herniation. Discussed with Neurosurgery (Dr. Ledezma). Recommended admission to ICU for CT f/u and observation. Also 1 unit of platelets if hematoma size > 5mm. This was confirmed and platelets ordered. 08/15/18 11:05 Patient admitted to ICU for further care. *DC/Admit/Observation/Transfer Diagnosis at time of Disposition: Subdural hematoma - Discharge Dispostion Decision to Admit order: Yes - Referrals - Patient Instructions - Post Discharge Activity
[2018-08-15 09:25] LABS: URINE APPEARANCE SLCLOUDY; URINE BILIRUBIN NEGATIVE (<2.0 mg/dL); URINE COLOR YELLOW; URINE GLUCOSE (UA) 3+ (NEGATIVE); URINE KETONE TRACE (NEGATIVE); URINE LEUK ESTERASE 1+ (NEGATIVE); URINE NITRITE NEGATIVE (NEGATIVE); URINE PROTEIN NEGATIVE (NEGATIVE); URINE UROBILINOGEN NEGATIVE mg/dL (0.2-1.0)
[2018-08-15 09:33] LABS: BASO % 0.2 % (0-2.0); EOS % 0.6 % (0-4.5); HEMATOCRIT 48.8 % (32.4-45.2); HEMOGLOBIN 17.2 GM/dL (10.7-15.3); LYMPH % 6.2 % (8-40); MCH 28.5 pg (25.7-33.7); MCHC 35.3 g/dl (32.0-36.0); MEAN CELL VOLUME 80.7 fl (80-96); MEAN PLT VOLUME 8.4 fl (7.5-11.1); MONO % 4.9 % (3.8-10.2); NEUT % 88.1 % (42.8-82.8); PLATELET COUNT 262 K/MM3 (134-434); RBC 6.05 M/mm3 (3.60-5.2); RDW 14.4 % (11.6-15.6); WHITE BLOOD COUNT 16.8 K/mm3 (4.0-10.0)
[2018-08-15 09:45] LABS: INR 1.02 (0.83-1.09)
[2018-08-15 09:48] LABS: ACTIVATED PTT 31.7 SECONDS (25.2-36.5)
[2018-08-15 10:00] LABS: ALBUMIN 4.2 g/dl (3.4-5.0); ALK PHOS 83 U/L (45-117); ANION GAP 11 MMOL/L (8-16); BILIRUBIN,TOTAL 0.9 mg/dL (0.2-1); BLOOD UREA NITROGEN 17 mg/dL (7-18); CHLORIDE 108 mmol/L (98-107); CO2 25 mmol/L (21-32); CREATININE 0.7 mg/dL (0.55-1.3); GLUCOSE,RANDOM 124 mg/dL (74-106); POTASSIUM 4.7 mmol/L (3.5-5.1); SGOT/AST 25 U/L (15-37); SGPT/ALT 35 U/L (13-61); SODIUM 143 mmol/L (136-145); TOT PROT 7.9 g/dl (6.4-8.2)
[2018-08-15] MEDS ORDERED: CEFTRIAXONE 1,000 MG in DEXTROSE 5%-WATER - 50 ML IVPB ONE (11:00)
--- NOTE | 2018-08-15 11:10 | PDOC ---
Attending Attestation - Resident Resident Name: Joe Rowan - ED Attending Attestation I have performed the following: I have examined & evaluated the patient, The case was reviewed & discussed with the resident, I agree w/resident's findings & plan - HPI HPI: 08/15/18 11:02 83y/o F h/o cva with residual R arm deficit on plavix, dm presents with daughter after found on floor this morning. no recollection of fall, denies cp/ recent infection. + head injury, per daughter at baseline mental status and physical activity. - Physicial Exam PE: 08/15/18 11:04 vss alert, nad scalp contusion neck supple, no midline ttp heart regular, lungs clear abd soft trauma exam unremarkable other than scalp hematoma neuro wnl except 4/5 RUE at baseline, otherwise 5/5 - Critical Care Time Total Critical Care Time: 75 Critical Care Statement: The care of this patient involved high complexity decision making to prevent further life threatening deterioration of the patient 's condition and/or to evaluate & treat vital organ system(s) failure or risk of failure. - Medical Decision Making 08/15/18 11:05 83y/o F found on floor, ? syncope/LOC. + head injury. stat ct head shows R SDH. Dr. Ledezma nsgy consulted ICU consulted and admitted leukocytosis, elevated wbc on UA. urine cx sent and treated with abx chem wnl, trop negative admit ICU, close neuro checks Heart Score/ECG Review #1 ECG reviewed & interpreted by me at: 08:22 General ECG Interpretation: Sinus Rhythm, Normal Rate (91), Normal Intervals ( qtc 494, RBBB qrs 130), No acute ischemic changes
[2018-08-15] MEDS ORDERED: CEFTRIAXONE 1 GM/50 ML BAG ONE (11:31)
--- NOTE | 2018-08-15 11:59 | CONSULT ---
Consultation: REQUESTING PROVIDER: CONSULT REQUEST: We have been asked to medically evaluate this patient for ( specify). HISTORY OF PRESENT ILLNESS: 83 year old woman with history of DM, HTN, CVA (2015) w/ R sided residual deficit in face, R arm and dragging of R foot when walking presenting with unwitnessed fall this AM that was not preceded by chest pain, shortness of breath, nausea or dizziness. Patient on ASA and plavix. Patient does not recall what caused her to fall. Patient felt dizzy s/p fall, that has since resolved. Patient speaks Hungarian but understands Yi, is accompanied by daughter who helps translate. Patient denies any other complaints at bedside and feels well. REVIEW OF SYSTEMS: CONSTITUTIONAL: Absent: fever, chills, diaphoresis, generalized weakness, malaise, loss of appetite, weight change HEENT: Absent: rhinorrhea, nasal congestion, throat pain, throat swelling, difficulty swallowing, mouth swelling, ear pain, eye pain, visual changes CARDIOVASCULAR: Absent: chest pain, syncope, palpitations, irregular heart rate, lightheadedness , peripheral edema RESPIRATORY: Absent: cough, shortness of breath, dyspnea with exertion, orthopnea, wheezing, stridor, hemoptysis GASTROINTESTINAL: Absent: abdominal pain, abdominal distension, nausea, vomiting, diarrhea, constipation, melena, hematochezia GENITOURINARY: Absent: dysuria, frequency, urgency, hesitancy, hematuria, flank pain, genital pain MUSCULOSKELETAL: Absent: myalgia, arthralgia, joint swelling, back pain, neck pain SKIN: Absent: rash, itching, pallor HEMATOLOGIC/IMMUNOLOGIC: Absent: easy bleeding, easy bruising, lymphadenopathy, frequent infections ENDOCRINE: Absent: unexplained weight gain, unexplained weight loss, heat intolerance, cold intolerance NEUROLOGIC: Absent: headache, focal weakness or paresthesias, dizziness, unsteady gait, seizure, mental status changes, bladder or bowel incontinence PSYCHIATRIC: Absent: anxiety, depression, suicidal or homicidal ideation, hallucinations. PHYSICAL EXAMINATION Vital Signs - 24 hr 08/15/18 08/15/18 08:17 10:00 Temperature 97.7 F Pulse Rate 93 H Pulse Rate [ 90 Apical] Respiratory 18 18 Rate Blood Pressure 149/78 Blood Pressure 124/75 [Left Arm] O2 Sat by Pulse 97 97 Oximetry (%) GENERAL: Awake, alert, and fully oriented, in no acute distress. HEAD: Normal with no signs of trauma. EYES: Pupils equal, round and reactive to light, extraocular movements intact, sclera anicteric, conjunctiva clear. + R sided facial paralysis EARS, NOSE, THROAT: Ears normal, nares patent, oropharynx clear without exudates. Moist mucous membranes. NECK: Normal range of motion, supple without lymphadenopathy, JVD, or masses. LUNGS: Breath sounds equal, clear to auscultation bilaterally. No wheezes, and no crackles. No accessory muscle use. HEART: Regular rate and rhythm, loud heart sounds, normal S1 and S2 without murmur, rub or gallop. ABDOMEN: Soft, nontender, not distended, normoactive bowel sounds, no guarding, no rebound, no masses. No hepatomegaly or splenomegaly. MUSCULOSKELETAL: No bony deformities or tenderness. UPPER EXTREMITIES: 2+ pulses, warm, well-perfused. No cyanosis. No clubbing. Cap refill <2 seconds. No peripheral edema. + R forearm paralysis LOWER EXTREMITIES: 2+ pulses, warm, well-perfused. No calf tenderness. No peripheral edema. NEUROLOGICAL: Cranial nerves II-XII intact. Normal speech. Normal gait. PSYCHIATRIC: Cooperative. Good eye contact. Appropriate mood and affect. SKIN: Warm, dry, normal turgor, no rashes or lesions noted. Laboratory Results - last 24 hr 08/15/18 08/15/18 08/15/18 09:11 09:29 09:29 WBC 16.8 H RBC 6.05 H Hgb 17.2 H Hct 48.8 H MCV 80.7 MCH 28.5 MCHC 35.3 RDW 14.4 Plt Count 262 D MPV 8.4 Absolute Neuts (auto) 14.8 H Neutrophils % 88.1 H D Lymphocytes % 6.2 L D Monocytes % 4.9 Eosinophils % 0.6 D Basophils % 0.2 Nucleated RBC % 0 PT with INR 12.00 INR 1.02 PTT (Actin FS) 31.7 Sodium Potassium Chloride Carbon Dioxide Anion Gap BUN Creatinine Creat Clearance w eGFR Random Glucose Calcium Total Bilirubin AST ALT Alkaline Phosphatase Creatine Kinase Troponin I Total Protein Albumin Urine Color Yellow Urine Appearance Slcloudy Urine pH 7.0 Ur Specific [place] 1.012 Urine Protein Negative Urine Glucose (UA) 3+ H Urine Ketones Trace H Urine Blood Negative Urine Nitrite Negative Urine Bilirubin Negative Urine Urobilinogen Negative Ur Leukocyte Esterase 1+ H Urine WBC (Auto) 12 Urine RBC (Auto) <1 Blood Type Antibody Screen 08/15/18 08/15/18 08/15/18 09:29 09:29 09:29 WBC RBC Hgb Hct MCV MCH MCHC RDW Plt Count MPV Absolute Neuts (auto) Neutrophils % Lymphocytes % Monocytes % Eosinophils % Basophils % Nucleated RBC % PT with INR INR PTT (Actin FS) Sodium 143 Potassium 4.7 Chloride 108 H Carbon Dioxide 25 Anion Gap 11 BUN 17 Creatinine 0.7 Creat Clearance w eGFR > 60 Random Glucose 124 H Calcium 9.0 Total Bilirubin 0.9 AST 25 ALT 35 Alkaline Phosphatase 83 Creatine Kinase 112 Troponin I < 0.02 Total Protein 7.9 Albumin 4.2 Urine Color Urine Appearance Urine pH Ur Specific [place] Urine Protein Urine Glucose (UA) Urine Ketones Urine Blood Urine Nitrite Urine Bilirubin Urine Urobilinogen Ur Leukocyte Esterase Urine WBC (Auto) Urine RBC (Auto) Blood Type AB POSITIVE Antibody Screen Negative Active Medications Generic Name Dose Route Start Last Admin Trade Name Freq PRN Reason Stop Dose Admin Ceftriaxone Sodium 1,000 mg/ 50 mls @ 100 mls/hr 08/16/18 11:45 Dextrose IVPB ONCE [facility] Insulin Aspart 1 vial 08/15/18 11:45 Novolog Vial Sliding Scale - SQ Q4H [facility] Protocol ASSESSMENT/PLAN: 83 year old woman with history of DM, HTN, CVA (2014) w/ R sided residual deficit in face, R arm and dragging of R foot when walking presenting with unwitnessed fall this AM that was not preceded by chest pain, shortness of breath, nausea or dizziness. Patient on ASA and plavix. Patient does not recall what caused her to fall. Patient felt dizzy s/p fall, that has since resolved. In ED - Head CT: R subdural hematoma - Neurosurgery consulted: CT f/u, observation, platelets as hematoma > 5mm - UA: elevated wbc, ucx pending - Ceftriaxone started - Negative troponin Neuro R subdural hematoma > 5mm - Neuro check Q1H - Keppra 500mg BID for seizure ppx - Head of bed > 30 degrees - hold ASA, plavix - Neurosurgery following Dr. Ledezma - CT head at 1800 Cardiac - hold ASA, plavix - cardiac monitoring - HTN keep SBP < 140 - ECHO - f/u repeat troponin Endo DM - Sliding scale insulin - BGM ACHS ID Urinary Tract Infection - Ceftriaxone 1/7 F/E/N - NPO to trend hematoma evolution - bedside swallow evaluation - NS GI ppx: protonix DVT ppx: SCDs Dispo: We will continue to follow the patient. Thank you for this consultative opportunity. Visit type - Emergency Visit Emergency Visit: Yes ED Registration Date: 08/15/18 Care time: The patient presented to the Emergency Department on the above date and was hospitalized for further evaluation of their emergent condition. - New Patient This patient is new to me today: Yes Date on this admission: 08/15/18 - Critical Care Critical Care patient: Yes Total Critical Care Time (in minutes): 35 Critical Care Statement: The care of this patient involved high complexity decision making to prevent further life threatening deterioration of the patient 's condition and/or to evaluate & treat vital organ system(s) failure or risk of failure.
--- NOTE | 2018-08-15 12:04 | HP ---
CHIEF COMPLAINT: fall PCP: HISTORY OF PRESENT ILLNESS: This is a 83 year old female with a history of multiple CVAs, with residual slurred speech and LUE weakness, who presents s/p unwitnessed fall vs possible syncopal episode, at home this morning. Patient is Kittitian speaking, but understands Mongolian. Daughter and family at bedside giving history and translating. Daughter states, mother lives in a 3 home complex on first floor. Family members live above. Each morning, family goes down to visit her and check her blood sugar. They also monitor her on home cameras. Daughter states that she saw mother in normal state this morning walking around, then went back to bed. Patient states she overslept, so went to unlock the door for family member, she unlocked door, and found herself on the floor. Patient endorsed headache at tat time, which has resolved. Daughter noticed lump on the back of patients's head with right elbow bruise. Denies sweating, jaw pain, numbness, blurry vision, chest pain, shortness of breath, tongue biting, bowel or bladder incontinence, edema. ER course was notable for: -Acute right subdural hematoma large -leucocytosis with +UA Recent Travel: none PAST MEDICAL HISTORY: CVA, Syncope, with loop recorder placed after strokes; seizure like activity in past?, HTN, HLD, DMII, left frozen shoulder; hx of right shoulder tear un repaired PAST SURGICAL HISTORY: loop recorder implanted in 2004, gallbladder removed, bunion removed, carpel tunnel surgery on left Social History: Smoking:no Alcohol:no Drugs: no Family History: Allergies atorvastatin calcium [From Lipitor] Allergy (Verified 08/15/18 08:50) HOME MEDICATIONS: Home Medications Medication Instructions Recorded Canagliflozin [Invokana] 100 mg PO DAILY 04/02/17 Cholecalciferol (Vitamin D3) 5,000 unit PO DAILY 04/02/17 [Vitamin D3 -] Clopidogrel Bisulfate [Plavix -] 75 mg PO DAILY 04/02/17 Glimepiride [Amaryl -] 2 mg PO BID 04/02/17 Glucosamine Sulfate Dipot Chlr 1,000 mg PO BID 04/02/17 [Glucosamine] L.acidoph,Paracasei, B.lactis 1 each PO DAILY 04/02/17 [Probiotic] Aspirin [Lo-Dose Aspirin EC] 81 mg PO DAILY 07/07/17 Calcium Citrate 333 gm PO HS 08/15/18 Calcium Citrate 666 gm PO DAILY 08/15/18 Cholesterol 20 mg PO BID 08/15/18 Loratadine [Claritin] 10 mg PO HS 08/15/18 Multivitamins [Tab-A-Vit -] 1 tab PO DAILY 08/15/18 [place]-3 Fatty Acids [[place]-3] 1,000 mg PO BID 08/15/18 Sitagliptin Phosphate [Januvia] 50 mg PO DAILY 08/15/18 REVIEW OF SYSTEMS CONSTITUTIONAL: Absent: fever, chills, diaphoresis, generalized weakness, malaise, loss of appetite, weight change HEENT: Absent: rhinorrhea, nasal congestion, throat pain, throat swelling, difficulty swallowing, mouth swelling, ear pain, eye pain, visual changes CARDIOVASCULAR: Absent: chest pain, syncope, palpitations, irregular heart rate, lightheadedness , peripheral edema RESPIRATORY: Absent: cough, shortness of breath, dyspnea with exertion, orthopnea, wheezing, stridor, hemoptysis GASTROINTESTINAL: Absent: abdominal pain, abdominal distension, nausea, vomiting, diarrhea, constipation, melena, hematochezia GENITOURINARY: Absent: dysuria, frequency, urgency, hesitancy, hematuria, flank pain, genital pain MUSCULOSKELETAL: Positive: right shoulder pain due to tear in past; right elbow pain Absent: myalgia, arthralgia, joint swelling, back pain, neck pain SKIN: Absent: rash, itching, pallor HEMATOLOGIC/IMMUNOLOGIC: Absent: easy bleeding, easy bruising, lymphadenopathy, frequent infections ENDOCRINE: Absent: unexplained weight gain, unexplained weight loss, heat intolerance, cold intolerance NEUROLOGIC: Positive: hx of dizziness, unsteady gait, focal weakness or paresthesias Absent: headache,, seizure, mental status changes, bladder or bowel incontinence PSYCHIATRIC: Absent: anxiety, depression, suicidal or homicidal ideation, hallucinations. PHYSICAL EXAMINATION Vital Signs - 24 hr 08/15/18 08/15/18 08:17 10:00 Temperature 97.7 F Pulse Rate 93 H Pulse Rate [ 90 Apical] Respiratory 18 18 Rate Blood Pressure 149/78 Blood Pressure 124/75 [Left Arm] O2 Sat by Pulse 97 97 Oximetry (%) GENERAL: Awake, alert, and fully oriented, in no acute distress.when patient sits up she get dizzy HEAD:lump with mild erythema about quater size in occipital region EYES: Pupils equal, round and reactive to light, extraocular movements intact, sclera anicteric, conjunctiva clear. No lid lag. EARS, NOSE, THROAT: Ears normal, nares patent, oropharynx clear without exudates. dry mucous membranes. NECK: Normal range of motion, supple without lymphadenopathy, JVD, or masses. LUNGS: Breath sounds equal, clear to auscultation bilaterally. No wheezes, and no crackles. No accessory muscle use. HEART: Regular rate and rhythm, normal S1 and S2 without murmur, rub or gallop. ABDOMEN: Soft, nontender, not distended, normoactive bowel sounds, no guarding, no rebound, no masses. No hepatomegaly or splenomegaly. MUSCULOSKELETAL:decreased ROM of right shoulder; unable to flex or extend right arm or raise arm above 15degrees; No bony deformities or tenderness. No CVA tenderness. UPPER EXTREMITIES: 2+ pulses, warm, well-perfused. No cyanosis. No clubbing. No peripheral edema. right elbow ecchymosis LOWER EXTREMITIES: 2+ pulses, warm, well-perfused. No calf tenderness. No peripheral edema. NEUROLOGICAL: Cranial nerves II-XII intact. Speech slurred which is not acute; slight right drrop; also chronic; gait not observed. 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 Good eye contact. Appropriate mood and affect. SKIN: Warm, dry, normal turgor, no rashes or lesions noted, normal capillary refill. Laboratory Results - last 24 hr 08/15/18 08/15/18 08/15/18 09:11 09:29 09:29 WBC 16.8 H RBC 6.05 H Hgb 17.2 H Hct 48.8 H MCV 80.7 MCH 28.5 MCHC 35.3 RDW 14.4 Plt Count 262 D MPV 8.4 Absolute Neuts (auto) 14.8 H Neutrophils % 88.1 H D Lymphocytes % 6.2 L D Monocytes % 4.9 Eosinophils % 0.6 D Basophils % 0.2 Nucleated RBC % 0 PT with INR 12.00 INR 1.02 PTT (Actin FS) 31.7 Sodium Potassium Chloride Carbon Dioxide Anion Gap BUN Creatinine Creat Clearance w eGFR Random Glucose Calcium Total Bilirubin AST ALT Alkaline Phosphatase Creatine Kinase Troponin I Total Protein Albumin Urine Color Yellow Urine Appearance Slcloudy Urine pH 7.0 Ur Specific [place] 1.012 Urine Protein Negative Urine Glucose (UA) 3+ H Urine Ketones Trace H Urine Blood Negative Urine Nitrite Negative Urine Bilirubin Negative Urine Urobilinogen Negative Ur Leukocyte Esterase 1+ H Urine WBC (Auto) 12 Urine RBC (Auto) <1 Blood Type Antibody Screen 08/15/18 08/15/18 08/15/18 09:29 09:29 09:29 WBC RBC Hgb Hct MCV MCH MCHC RDW Plt Count MPV Absolute Neuts (auto) Neutrophils % Lymphocytes % Monocytes % Eosinophils % Basophils % Nucleated RBC % PT with INR INR PTT (Actin FS) Sodium 143 Potassium 4.7 Chloride 108 H Carbon Dioxide 25 Anion Gap 11 BUN 17 Creatinine 0.7 Creat Clearance w eGFR > 60 Random Glucose 124 H Calcium 9.0 Total Bilirubin 0.9 AST 25 ALT 35 Alkaline Phosphatase 83 Creatine Kinase 112 Troponin I < 0.02 Total Protein 7.9 Albumin 4.2 Urine Color Urine Appearance Urine pH Ur Specific [place] Urine Protein Urine Glucose (UA) Urine Ketones Urine Blood Urine Nitrite Urine Bilirubin Urine Urobilinogen Ur Leukocyte Esterase Urine WBC (Auto) Urine RBC (Auto) Blood Type AB POSITIVE Antibody Screen Negative HEAD CT NON CONTRAST Acute right subdural hematoma extending from the right middle cranial fossa toward the vertex. The largest collection of blood is seen along the lateral convexity of right posterior frontal lobe, parietal lobe measuring approximately 3.6 cm x 1.3 cm x 1.2 cm. There is mass effect on the right frontal, temporal convexity effacing of the cortical sulci, right sylvian fissure, with subdural hematoma at this level measures radha, 6.3 mm (transverse) x 3.2 cm (ap) x 3.4 cm (cc). ASSESSMENT/PLAN: This is a 83 year old female with a history of multiple CVA's with residual left UE weakness and aphasia, DMII, HTN, HLD, who present s/p unwitnessed fall. Patient does not remember event. R/O new cva/tia vs syncopal episode, orthostatic hypotension, hypogylcemia acs, possible seizure, infection, metabolic process. #subdural hematoma; found on floor; r/o out possible etiology for head injury as stated above: -no acute neurological changes or residual deficits from events -neuro checks Q1h -potline monitor -s/p platelets -hold asa and plavix -f/u second troponin to r/o acs -f/u prolactin -ecg -echo -orhtostatic bp; -keep npo for now to eval hematoma progression; -bedside swallow eval -prophylactic keppra for seizure -repeat head CT at 6pm -neuro surgery consulted #UTI -UA+ ; -f/u urine culture -IV ceftriaxone #DM -BGM -insulin ss #HTN: montiro bp; keep systolic <160 GI ppls: protonix VTE ppl: scds Disposition: monitor in icu Visit type - Emergency Visit Emergency Visit: Yes ED Registration Date: 08/15/18 Care time: The patient presented to the Emergency Department on the above date and was hospitalized for further evaluation of their emergent condition. - New Patient This patient is new to me today: Yes Date on this admission: 08/15/18 - Critical Care Critical Care patient: Yes Total Critical Care Time (in minutes): 40 Critical Care Statement: The care of this patient involved high complexity decision making to prevent further life threatening deterioration of the patient 's condition and/or to evaluate & treat vital organ system(s) failure or risk of failure.
--- NOTE | 2018-08-15 12:31 | EKG ---
Test Reason : Blood Pressure : / mmHG Vent. Rate : 091 BPM Atrial Rate : 091 BPM P-R Int : 244 ms QRS Dur : 130 ms QT Int : 402 ms P-R-T Axes : 075 125 011 degrees QTc Int : 494 ms SINUS RHYTHM WITH 1ST DEGREE A-V BLOCK RIGHT BUNDLE BRANCH BLOCK POSSIBLE LATERAL INFARCT (CITED ON OR BEFORE 19-FEB-2015) POSSIBLE INFERIOR INFARCT (CITED ON OR BEFORE 19-FEB-2015) ABNORMAL ECG Confirmed by MD BARBY, GEORGETTE ([id number]) on 08/15/2018 12:31:06 PM Referred By: Confirmed By:GEORGETTE DIOR MD
[2018-08-15 13:04] LABS: INR 1.05 (0.83-1.09); PROTHROMBIN TIME (PATIENT) 12.4 SEC (9.7-13.0)
--- NOTE | 2018-08-15 13:11 | PN ---
Teaching Attending Note Name of Resident: Magaly Gonzales ATTENDING PHYSICIAN STATEMENT I saw and evaluated the patient. I reviewed the resident's note and discussed the case with the resident. I agree with the resident's findings and plan as documented. SUBJECTIVE: Patient is a 83yo female with h/o HTN, DM, h/o CVA on ASA, plavix who presented to ED. s/p fall and was found to have a subdural hematoma with mass effect. Patient is awake with no acute distress, xarries on conversation. patient has slurred speech, granddaughter at bedside, american speaking lady. Denies headache , nausea, visual changes or any new changes. Patient has multiple strokes in the past on Plavix and aspirin. patient is in ED. waiting for an ICU bed. OBJECTIVE: Vital Signs Temperature 98.1 F 08/15/18 12:35 Pulse Rate 89 08/15/18 12:35 Respiratory Rate 18 08/15/18 12:35 Blood Pressure 120/98 08/15/18 12:35 O2 Sat by Pulse Oximetry (%) 97 08/15/18 12:35 GENERAL: Awake, alert, and fully oriented, in no acute distress.when patient sits up she get dizzy HEAD:lump with mild erythema about quater size in occipital region EYES: Pupils equal, round and reactive to light, extraocular movements intact, sclera anicteric, conjunctiva clear. EARS, NOSE, THROAT: Ears normal, oropharynx clear without exudates. dry mucous membranes. NECK: Normal range of motion, supple without lymphadenopathy, JVD, or masses. LUNGS: Breath sounds equal, clear to auscultation bilaterally. No wheezes, and no crackles. No accessory muscle use. HEART: Regular rate and rhythm, normal S1 and S2 without murmur, rub or gallop. ABDOMEN: Soft, nontender, not distended, normoactive bowel sounds, no guarding, no rebound, no masses. MUSCULOSKELETAL:decreased ROM of right shoulder; unable to flex or extend right arm or raise arm above 15degrees EXTREMITIES: 2+ pulses, warm, well-perfused. No cyanosis. No clubbing. right elbow ecchymosis NEUROLOGICAL: Cranial nerves II-XII intact. Speech slurred which is her normal due to multiple strokes ; power 4/5 on the right side LE, and 4/5 UE on the right. PSYCHIATRIC: Cooperative. Good eye contact. Appropriate mood and affect. SKIN: Warm, dry, normal turgor, no rashes or lesions noted, normal capillary refill. CBCD WBC 16.8 K/mm3 (4.0-10.0) H 08/15/18 09:29 RBC 6.05 M/mm3 (3.60-5.2) H 08/15/18 09:29 Hgb 17.2 GM/dL (10.7-15.3) H 08/15/18 09:29 Hct 48.8 % (32.4-45.2) H 08/15/18 09:29 MCV 80.7 fl (80-96) 08/15/18 09: MCHC 35.3 g/dl (32.0-36.0) 08/15/18 09: RDW 14.4 % (11.6-15.6) 08/15/18 09:29 Plt Count 262 K/MM3 (134-434) D 08/15/18 09:29 MPV 8.4 fl (7.5-11.1) 08/15/18 09:29 CMP Sodium 143 mmol/L (136-145) 08/15/18 09:29 Potassium 4.7 mmol/L (3.5-5.1) 08/15/18 09:29 Chloride 108 mmol/L (98-107) H 08/15/18 09:29 Carbon Dioxide 25 mmol/L (21-32) 08/15/18 09:29 Anion Gap 11 MMOL/L (8-16) 08/15/18 09:29 BUN 17 mg/dL (7-18) 08/15/18 09:29 Creatinine 0.7 mg/dL (0.55-1.3) 08/15/18 09:29 Creat Clearance w eGFR > 60 (>60) 08/15/18 09:29 Random Glucose 124 mg/dL (74-106) H 08/15/18 09:29 Calcium 9.0 mg/dL (8.5-10.1) 08/15/18 09:29 Total Bilirubin 0.9 mg/dL (0.2-1) 08/15/18 09:29 AST 25 U/L (15-37) 08/15/18 09:29 ALT 35 U/L (13-61) 08/15/18 09:29 Alkaline Phosphatase 83 U/L (45-117) 08/15/18 09:29 Total Protein 7.9 g/dl (6.4-8.2) 08/15/18 09:29 Albumin 4.2 g/dl (3.4-5.0) 08/15/18 09:29 CARDIAC ENZYMES Creatine Kinase 112 IU/L (26-192) 08/15/18 09:29 Troponin I < 0.02 ng/ml (0.00-0.05) 08/15/18 09:29 Current Medications Generic Name Dose Route Start Last Admin Trade Name Freq PRN Reason Stop Dose Admin Chlorhexidine Gluconate 1 applic 08/15/18 22:00 Hibiclens For Decolonization - TP HS [facility] Ceftriaxone Sodium 1 gm/ 50 mls @ 100 mls/hr 08/16/18 11:45 Dextrose IVPB 08/16/18 12:14 ONCE ONE Insulin Aspart 1 vial 08/15/18 11:45 Novolog Vial Sliding Scale - SQ Q4H [facility] Protocol Levetiracetam 500 mg 08/15/18 22:00 Keppra Injection - IVPB BID [facility] Mupirocin 1 applic 08/15/18 22:00 Bactroban Ointment (For Decolonization) - NS 08/20/18 21:59 BID [facility] Home Medications Medication Instructions Recorded Canagliflozin [Invokana] 100 mg PO DAILY 04/02/17 Cholecalciferol (Vitamin D3) 5,000 unit PO DAILY 04/02/17 [Vitamin D3 -] Clopidogrel Bisulfate [Plavix -] 75 mg PO DAILY 04/02/17 Glimepiride [Amaryl -] 2 mg PO BID 04/02/17 Glucosamine Sulfate Dipot Chlr 1,000 mg PO BID 04/02/17 [Glucosamine] L.acidoph,Paracasei, B.lactis 1 each PO DAILY 04/02/17 [Probiotic] Aspirin [Lo-Dose Aspirin EC] 81 mg PO DAILY 07/07/17 Calcium Citrate 333 gm PO HS 08/15/18 Calcium Citrate 666 gm PO DAILY 08/15/18 Cholesterol 20 mg PO BID 08/15/18 Loratadine [Claritin] 10 mg PO HS 08/15/18 Multivitamins [Tab-A-Vit -] 1 tab PO DAILY 08/15/18 [place]oke-3 Fatty Acids [[place]-3] 1,000 mg PO BID 08/15/18 Sitagliptin Phosphate [Januvia] 50 mg PO DAILY 08/15/18 EXAM#: TYPE/EXAM: RESULT: [id number] CT/CERVICAL SPINE CT W/O CONTR Reason for the study. Tonsils post CT scan of the cervical spine C-. Direct axial images were obtained from the base of the skull through T2-T3. The study was supplemented with computer-generated sagittal, coronal reconstruction images. Findings. Straightening of the cervical spine is noted on the sagittal reconstruction images. Intact odontoid. The predental space is not widened. No acute fracture, compression deformity is seen. Symmetrical articulation of atlantoaxial and occipito atlantal joints. C4-C5. Facet joint arthropathy. Minimal degenerative anterior subluxation of C4 on C5. C7-T1. Minimal degenerative anterior subluxation. Facet joint arthropathy. C5-C6, C6-C7. Loss of disc space height, endplate sclerosis. Posterior discal osteophytes. Posterior nuchal calcifications are seen observed at several levels.. Normal alignment of the facet joints. The intraspinal contents cannot be adequately evaluated due to the beam hardening artifacts. The airways are patent. No evidence of prevertebral soft tissue swelling. The lung apices are clear. Right acute subdural hematoma along the right temporal lobe convexity is is noted. Impression. Visualized osseous structures appear intact, no acute bony abnormalities are seen Degenerative anterior subluxation at C4-C5, C7-T1. Chronic degenerative discogenic disease at C5-C6 C6-C7. Reported By: Rai Morris MD 08/15/18 1007 Serial axial images of the brain were obtained from foramen magnum to the cranial vertex without intravenous contrast. The study was supplemented with computer-generated coronal and sagittal reconstruction images. Comparison study CT brain April 02, 2017. Acute right subdural hematoma extending from the right middle cranial fossa toward the vertex. The largest collection of blood is seen along the lateral convexity of right posterior frontal lobe, parietal lobe measuring approximately 3.6 cm x 1.3 cm x 1.2 cm. There is mass effect on the right frontal, temporal convexity effacing of the cortical sulci, right sylvian fissure, with subdural hematoma at this level measures radha, 6.3 mm (transverse) x 3.2 cm (ap) x 3.4 cm (cc) No evidence of midline shift, or herniation. There is no evidence of acute subarachnoid hemorrhage, acute intra-axial or intraventricular hemorrhage. Chronic lacunar infarct left basal ganglia. Chronic ischemic changes left supra ganglionic white matter, centrum semiovale with compensatory dilatation of the left lateral ventricle. Loss of volume of the brain parenchyma with involutional changes. No evidence of hydrocephalus. Supratentorial chronic white matter microangiopathic ischemic changes, gliosis. Examination of the bone windows show no fracture. Hyperostosis frontalis interna. Right posterior scalp injury. Small air-fluid level in the right maxillary sinus. Impression. Acute right subdural hematoma extending from the right middle cranial fossa toward the vertex. The largest collection of blood is seen along the lateral convexity of right posterior frontal lobe, parietal lobe measuring approximately 3.6 cm x 1.3 cm x 1.2 cm. There is mass effect on the right frontal, temporal convexity effacing of the cortical sulci, right sylvian fissure, with subdural hematoma at this level measures radha, 6.3 mm ( transverse) x 3.2 cm (ap) x 3.4 cm (cc). No evidence of herniation. No evidence of acute subarachnoid hemorrhage, acute intra-axial or intraventricular hemorrhage. Right posterior scalp injury, hematoma. 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 Patient does not remember the event. R/O new cva/ tia vs syncopal episode, orthostatic hypotension, hypogylcemia acs, possible seizure, infection, metabolic process. As per granddaughter patient tripped on the carpet while trying to open the door for her daughter who lives upstairs from her. #Acute Right temporol-parietat subdural hematoma with mild mass effect with no shift : ICU; elevate the head of the bed. C spine : degenerative changes Platelet transfusion as per neurosxluis for 1 week to avoid seizure activity , repeat CT of the head is at 6pm #UTI on IV ceftriaxone, follow cx #DM on sliding scale with coverage #HTN keep SBP below 140 DVT px: scd GI Px: Protonix
[2018-08-15] MEDS: INSULIN SLIDING SCALE (NOVOLOG) 1 VIAL SQ SCH ×4 (14:08→20:17)
--- NOTE | 2018-08-15 14:11 | PN ---
Teaching Attending Note Name of Resident: Shivani Tukcer ATTENDING PHYSICIAN STATEMENT I saw and evaluated the patient. I reviewed the resident's note and discussed the case with the resident. I agree with the resident's findings and plan as documented. SUBJECTIVE: Pt seen and examined in the ER. Briefly, 83yo female with h/o HTN, DM, h/o CVA on ASA, plavix who was admitted s/p fall. Found to have a subdural hematoma with mass effect. Denies headache, nausea, visual changes or focal deficits aside from her prior stroke. Evaluated by neurosurgery, transfused platelets, awaiting ICU bed. OBJECTIVE: Vital Signs Period Temp Pulse Resp BP Sys/Haney Pulse Ox Last 24 Hr 97.7 F-98.1 F 89-105 18-21 120-149/69-98 96-97 Intake & Output 08/12/18 08/13/18 08/14/18 08/15/18 23:59 23:59 23:59 23:59 Weight 55.792 kg Gen: NAD at rest Heart: RRR Lung: decreased breath sounds at the bases Abd: soft, nontender Ext: no edema CBC, BMP 08/15/18 09:29 08/15/18 09:29 Active Medications Chlorhexidine Gluconate (Hibiclens For Decolonization -) 1 applic TP HS [facility] Ceftriaxone Sodium 1 gm/ (Dextrose) 50 mls @ 100 mls/hr IVPB ONCE ONE Stop: 08/16/18 12:14 Sodium Chloride (Normal Saline -) 1,000 mls @ 42 mls/hr IV ASDIR [facility] Insulin Aspart (Novolog Vial Sliding Scale -) 1 vial SQ Q4H [facility]; Protocol Last Admin: 08/15/18 14:08 Dose: Not Given Levetiracetam (Keppra Injection -) 500 mg IVPB BID [facility] Mupirocin (Bactroban Ointment (For Decolonization) -) 1 applic NS BID [facility] Stop: 08/20/18 21:59 Pantoprazole Sodium (Protonix Iv) 40 mg IVPUSH BID [facility] ASSESSMENT AND PLAN: s/p Fall Subdural Hematoma with mass effect Platelet Dysfunction from antiplatelets HTN DM h/o CVA UTI - repeat CT head in PM - neuro checks - holding antiplatelets - antibiotics for UTI - f/u cultures - mechanical DVT prophylaxis - ICU monitoring for now
[2018-08-15] MEDS: SODIUM CHLORIDE 1,000 ML IV SCH (14:52)
--- NOTE | 2018-08-15 15:07 | ECHO ---
Name: FARIDEH MELO Exam:Adult Echocardiogram Study Date: 08/15/2018 01:31 PM Age: 83 yrs Reason For Study: SYNCOPE Height: 58 in Weight: 123 lb BSA: 1.5 m2 MMode/2D Measurements & Calculations IVSd: 1.9 cm Ao root diam: 3.2 cm LVIDd: 3.0 cm LA dimension: 4.8 cm LVIDs: 2.3 cm LVPWd: 0.86 cm EDV(Teich): 33.9 ml LVOT diam: 2.0 cm ESV(Teich): 18.4 ml LAV (MOD-bp): 74.0 ml Doppler Measurements & Calculations MV E max jeremiah: 105.0 cm/sec Med Peak E' Jeremiah: 7.1 cm/sec MV A max jeremiah: 184.0 cm/sec Med E/e': 14.8 MV E/A: 0.57 Lat Peak E' Jeremiah: 7.9 cm/sec MV dec time: 0.06 sec Lat E/e': 13.2 PI Vmax: 86.9 cm/sec Left Ventricle There is mild asymmetric left ventricular hypertrophy. Normal LV function. EF 55%. Reversal of the E to A ratio consistent with abnormal diastolic compliance. Right Ventricle The right ventricular systolic function is normal. Atria The left atrium is moderately dilated. Right atrial size is normal. Mitral Valve The mitral valve leaflets appear normal. There is no evidence of stenosis, fluttering, or prolapse. T here is mild mitral regurgitation. Tricuspid Valve The tricuspid valve is normal. There is trace tricuspid regurgitation. Aortic Valve The aortic valve is normal in structure and function. Pulmonic Valve The pulmonic valve leaflets are thin and pliable; valve motion is normal. Great Vessels The aortic root is normal size. Pericardium/Pleura There is no pericardial effusion. Interpretation Summary Normal LV function. EF 55% The right ventricular systolic function is normal. There is mild mitral regurgitation. The left atrium is moderately dilated. Right atrial size is normal. There is trace tricuspid regurgitation. The tricuspid valve is normal. The aortic valve is normal in structure and function. The aortic root is normal size. Reversal of the E to A ratio consistent with abnormal diastolic compliance. MD David Fernandez 08/15/2018 03:06 PM
--- NOTE | 2018-08-15 16:28 | PN ---
Progress Note (short form) - Note Progress Note: NEUROSURGERY CONSULT DICTATED Chart reviewed Pt examined family at bed side in ED H/o CVAs, with residual slurred speech and UE weakness, presents s/p unwitnessed fall vs possible syncopal episode this morning. Might have tripped on carpet per son. Amnestic of events. PE: AF, VSS HEENT- small R parietal occipital cephalohematoma; Neck- supple; Cor- RR; Lungs - CTA; Abd- benign; Ext- no sign of DVT A/A, Puerto Rican speaking but understands Vietnamese CN- intact; Motor- 5/5 except R shoulder and arm/hand 4/5; Sensation- intact LT ; DTR- 1+; toes upgoing B Labs checked Head CT- R parietal > temporal SDH with mild mass effect but no shift; mild atrophy; moderate periventricular disease; thickest about 13 mm R parietal region Brain MRI 2016- moderate atrophy, marked periventricular small vessel disease C spine CT- C5-6 and C6-7 DDD/spondylosis; degenerative C4-5 and C7-T1 spondylolisthesis Acute R temporo-parieta SDH with mild mass effect Pt is minimally if symptomatic so hopefully could avoid surgery Repeat CT @ 1800 Platelet transfusion given size of acute SDH Cont keppra x 1 week
--- NOTE | 2018-08-15 19:43 | CONS ---
DATE OF CONSULTATION: 08/15/2018 CHIEF COMPLAINT: Acute right temporal parietal subdural hematoma. HISTORY OF PRESENT ILLNESS: The patient is an 83-year-old right handed female with a history of cerebrovascular disease, hypertension, and osteoporosis, and diabetes , who has sustained a mechanical fall earlier today at home. The patient did not recall the events around her fall. She denies having a headache, dizziness, nausea, vomiting, diplopia, or increasing deficits. She had residual upper extremity weakness from her prior stroke. She also has right shoulder weakness from her prior right shoulder rotator cuff procedure. PAST MEDICAL HISTORY: Significant for stroke, hypertension, hypercholesterolemia, diabetes. MEDICATION: Includes Invokana, vitamin D3, Plavix, Amaryl, glucosamine, probiotic, baby aspirin, calcium supplement, Claritin, omega 3, and Januvia. ALLERGIES: ATORVASTATIN. SOCIAL HISTORY: She does not smoke and only drinks alcohol socially. She lives at home. She is retired. REVIEW OF SYSTEMS: Otherwise negative for other major constitutional, head/neck , cardiovascular, pulmonary, gastrointestinal, genitourinary, endocrinologic, neurologic, or psychological problems except for the above. PHYSICAL EXAMINATION: Vital signs: Temperature is 98.1, blood pressure 134/69 with pulse rate of 105 , O2 saturation 97% on room air. General: She is accompanied by her son to the emergency department. HEENT: She was noted to have a small right temporal parietal subdural hematoma. There is no active bleeding. Neck: Supple. Coronary: Regular rhythm. Lungs: Clear bilaterally. Abdomen: Benign. Extremities: No signs of DVT. Neurologic: She is awake, alert. She is Senegalese speaking but does understand Sudanese and follows commands. Cranial nerves examination intact 2-12. Motor examination shows 5/5 strength except upper extremities which is 4/5. She has decreased right shoulder range of motion. Sensory examination is intact to light touch. Deep tendon reflexes are 1+ throughout. Her toes are upgoing bilaterally. Cerebellar examination demonstrating intact finger to nose examination, except as limited by her right shoulder. LABORATORY EXAMINATION: White blood cell count of 16.8, hemoglobin 17.2, platelet count is 262,000. INR is 1.02, and PTT is normal. Serum sodium 143, potassium 4.7, serum 143. BUN and creatinine are 17 and 0.76 respectively, glucose 124. LFTs normal. Troponin was less than 0.02. Albumin is 4.2. Urinalysis shows 3+ glucose and trace ketones. There is 1+ leukocyte esterase. There are 12 WBCs and less than 1 RBC. Urine culture is pending. CT scan of the head demonstrated a right temporal parietal subdural hematoma which is acute in nature, right sided parietal subdural hematoma measures approximately 1.2 x 1.3 x 3.6 cm. The right temporal subdural hematoma is approximately 6 to 7 mm in maximal thickness. There is mild mass effect but no shift. There is moderate periventricular small vessel disease. MRI from 2017 demonstrated moderate to marked periventricular small vessel disease bilaterally. There was also moderate cerebral atrophy at the time. CT scan of cervical spine demonstrated C5-6 and C6-7 degenerative disk disease. There is mild degenerative spondylolisthesis at C4-5, C7-T1. IMPRESSION: 1. Acute right temporal parietal subdural hematoma with mild mass effect but no midline shift. 2. Hypertension. 3. History of cerebrovascular disease. 4. Diabetes. RECOMMENDATION: The patient presents with mechanical fall, most likely she has no focal neurological deficit. She does not complain of headache or nausea/ vomiting. Because of the fall and possible syncope, she should be on Keppra for prophylaxis for 1 week. She should get a CT scan of the head as ordered to be done in about 2 hours for followup. The patient has a fairly thick acute subdural hematoma, and platelet was given to correct the effect on the aspirin and Plavix. She should be observed in intensive care unit. Hopefully the subdural hematoma will remain stable and can be observed conservatively. The above was discussed with patient's family at bedside in the emergency department. No acute neurosurgical intervention is recommended at this time. All questions were answered. CHEY PEARSON M.D. EUGENIO/[id number] MTDD
[2018-08-15] MEDS ORDERED: CHLORHEXIDINE GLUCONATE 4% CLEANSER FOR DECOLONIZATION TP SCH (22:00)
[2018-08-15] MEDS ORDERED: levETIRAcetam 500 MG/5 ML INJECTION VIAL IVPB ONE (22:21)
[2018-08-15] MEDS ORDERED: PANTOPRAZOLE SODIUM 40 MG VIAL ONE (22:21)
[2018-08-15] MEDS: levETIRAcetam 500 MG/5 ML INJECTION VIAL IVPB SCH (22:35)
[2018-08-15] MEDS: PANTOPRAZOLE SODIUM 40 MG VIAL IVPUSH SCH (22:35)
[2018-08-16] MEDS: INSULIN SLIDING SCALE (NOVOLOG) 1 VIAL SQ SCH ×7 (01:00→21:33)
[2018-08-16 06:48] LABS: BASO % 0.5 % (0-2.0); EOS % 1.5 % (0-4.5); HEMATOCRIT 43.5 % (32.4-45.2); HEMOGLOBIN 15.4 GM/dL (10.7-15.3); LYMPH % 15.4 % (8-40); MCH 28.5 pg (25.7-33.7); MCHC 35.4 g/dl (32.0-36.0); MEAN CELL VOLUME 80.5 fl (80-96); MEAN PLT VOLUME 8.3 fl (7.5-11.1); MONO % 12.1 % (3.8-10.2); NEUT % 70.5 % (42.8-82.8); PLATELET COUNT 253 K/MM3 (134-434); RDW 13.9 % (11.6-15.6); WHITE BLOOD COUNT 9.2 K/mm3 (4.0-10.0)
[2018-08-16 07:34] LABS: INR 1.08 (0.83-1.09); PROTHROMBIN TIME (PATIENT) 12.8 SEC (9.7-13.0)
[2018-08-16 07:37] LABS: ACTIVATED PTT 31.4 SECONDS (25.2-36.5)
[2018-08-16 08:03] LABS: ALBUMIN 3.7 g/dl (3.4-5.0); ALK PHOS 84 U/L (45-117); ANION GAP 7 MMOL/L (8-16); BILIRUBIN,TOTAL 1.5 mg/dL (0.2-1); BLOOD UREA NITROGEN 16 mg/dL (7-18); CALCIUM 8.7 mg/dL (8.5-10.1); CHLORIDE 111 mmol/L (98-107); CO2 24 mmol/L (21-32); CREATININE 0.6 mg/dL (0.55-1.3); GLUCOSE,RANDOM 119 mg/dL (74-106); MAGNESIUM 2.3 mg/dL (1.8-2.4); POTASSIUM 4.2 mmol/L (3.5-5.1); SGOT/AST 27 U/L (15-37); SGPT/ALT 30 U/L (13-61); SODIUM 142 mmol/L (136-145); TOT PROT 6.8 g/dl (6.4-8.2)
--- NOTE | 2018-08-16 08:41 | PN ---
Progress Note (short form) - Note Progress Note: NEUROSURGERY In ED bed H/o CVAs, with residual slurred speech and UE weakness, presents s/p unwitnessed fall vs possible syncopal episode this morning. Might have tripped on carpet per son. Amnestic of events. No H/A or N/V or dizziness. PE: Tmax 99, AF, VSS HEENT- small R parietal occipital cephalohematoma; Neck- supple; Cor- RR; Lungs - CTA; Abd- benign; Ext- no sign of DVT A/A, Comoran speaking but understands Vincentian CN- intact; Motor- 5/5 except R shoulder and arm/hand 4/5; Sensation- intact LT ; DTR- 1+; toes upgoing B Labs checked Head CT- R parietal > temporal SDH with mild mass effect but no shift; mild atrophy; moderate periventricular/cerebellar vascular disease; thickest SDH about 13 mm R parietal region F/u CT- unchanged Brain MRI 2017- moderate atrophy, marked periventricular small vessel disease Acute R temporo-parieta SDH with mild mass effect- stable on f/u CT Pt is minimally if symptomatic so hopefully could avoid surgery Cont keppra x 1 week Adv diet as tolerated D/w ICU team
--- NOTE | 2018-08-16 10:18 | PN ---
Physical Exam: SUBJECTIVE: Patient is 83 y/o female with a history of multiple CVA's with residual left UE weakness and aphasia, DMII, HTN, and HLD who is here for subdural hematoma. Patient examined this morning and had no complaints. Patient had no acute events overnight. OBJECTIVE: Vital Signs Temperature 99.0 F 08/16/18 06:24 Pulse Rate 80 08/16/18 08:19 Respiratory Rate 18 08/16/18 08:19 Blood Pressure 122/68 08/16/18 08:19 O2 Sat by Pulse Oximetry (%) 97 08/16/18 08:19 GENERAL: The patient is awake, alert, and fully oriented, in no acute distress. HEAD: Normal with no signs of trauma. EYES: PERRL, extraocular movements intact, . NECK: Trachea midline, full range of motion, supple. LUNGS: Breath sounds equal, clear to auscultation bilaterally, HEART: Regular rate and rhythm, S1, S2 without murmur, rub or gallop. ABDOMEN: Soft, nontender, nondistended, normoactive bowel sounds, EXTREMITIES: 2+ pulses, warm, well-perfused, no edema. NEUROLOGICAL: Cranial nerves II through XII grossly intact. Normal speech, gait not observed. UE 5/5 strength, LE 5/5 strength R hand shaper setter mildly less compared to right, sensation intact bilaterally PSYCH: Normal mood, normal affect. SKIN: Warm, dry, normal turgor, no rashes or lesions noted CBC, BMP 08/16/18 06:10 08/16/18 06:10 Active Medications Chlorhexidine Gluconate (Hibiclens For Decolonization -) 1 applic TP HS [facility] Ceftriaxone Sodium 1 gm/ (Dextrose) 50 mls @ 100 mls/hr IVPB ONCE ONE Stop: 08/16/18 12:14 Sodium Chloride (Normal Saline -) 1,000 mls @ 42 mls/hr IV [facility] Last Admin: 08/15/18 14:52 Dose: 42 mls/hr Insulin Aspart (Novolog Vial Sliding Scale -) 1 vial SQ Q4H [facility]; Protocol Last Admin: 08/16/18 09:18 Dose: Not Given Levetiracetam (Keppra Injection -) 500 mg IVPB BID [facility] Last Admin: 08/15/18 22:35 Dose: 500 mg Mupirocin (Bactroban Ointment (For Decolonization) -) 1 applic NS BID [facility] Stop: 08/20/18 21:59 Pantoprazole Sodium (Protonix Iv) 40 mg IVPUSH BID [facility] Last Admin: 08/15/18 22:35 Dose: 40 mg ASSESSMENT/PLAN: Patient is 83 y/o female with a history of multiple CVA's with residual left UE weakness and aphasia, DMII, HTN, and HLD, who is here for subdural hematoma. #subdural hematoma - Brain MRI 2017: moderate atrophy - Head CT: R parietal > temporal SDH with mild mass effect no shift, mild atrophy, moderate periventricular disease, repeat CT shows no definite interval change - Evaluated by neuro surgeon, Dr. Ledezma: unlikely surgery at this time, patient minimally symptomatic - continue keppra x 1 week 500 BID, will not need jail - neuro checks q3h - continue holding antiplatelets - per Rosalie: f/u with Brain MRI - patient on telemetry #GI ppx - pantoprazole 40 IV push BID #DM - SS #UTI - UCX: lactose fermenting negative bacilli - continue IV ceftriaxone FEN -diabetic diet Dispo: likely monitor one more day, f/u Brain MRI Visit type - Emergency Visit Emergency Visit: No - New Patient This patient is new to me today: Yes Date on this admission: 08/16/18 - Critical Care Critical Care patient: No
--- NOTE | 2018-08-16 11:12 | CON.NEURO ---
Consult - History of Present Illness History of Present Illness: 83 year old female with a history of multiple CVAs, with residual APHASIA and LUE weakness(?), who presents s/p unwitnessed fall vs possible syncopal episode , at home this morning. Patient is Icelandic speaking, but understands Dominican. Daughter and family at bedside giving history and translating. Daughter states, mother lives in a 3 home complex on first floor. Family members live above. Each morning, family goes down to visit her and check her blood sugar. They also monitor her on home cameras. Daughter states that she saw mother in normal state this morning walking around, then went back to bed. Patient states she overslept, so went to unlock the door for family member, she unlocked door, and found herself on the floor. found to have R subdural-seen by NS --no intervention at this juncture. awake and attentive. CT HD x 2 --no sig change on repeat scan Impression: No definite interval change is identified. An acute extra-axial hematoma is seen along the right cerebral convexity as discussed above. Multiple chronic supratentorial and infratentorial infarcts are noted. 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 Cardio/Vascular: Yes: HTN, Hyperlipdemia Endocrine: Yes: Diabetes Mellitus - Alcohol/Substance Use Hx Alcohol Use: No History of Substance Use: reports: None - Smoking History Smoking history: Never smoked Have you smoked in the past 12 months: No - Social History History of Recent Travel: No Home Medications - Allergies Allergies/Adverse Reactions: Allergies Allergy/AdvReac Type Severity Reaction Status Date / Time atorvastatin calcium Allergy Verified 08/15/18 08:50 [From Lipitor] - Home Medications Home Medications: Ambulatory Orders Canagliflozin [Invokana] 100 mg PO DAILY 04/02/17 Cholecalciferol (Vitamin D3) [Vitamin D3 -] 5,000 unit PO DAILY 04/02/17 Clopidogrel Bisulfate [Plavix -] 75 mg PO DAILY 04/02/17 Glimepiride [Amaryl -] 2 mg PO BID 04/02/17 Glucosamine Sulfate Dipot Chlr [Glucosamine] 1,000 mg PO BID 04/02/17 L.acidoph,Paracasei, B.lactis [Probiotic] 1 each PO DAILY 04/02/17 Aspirin [Lo-Dose Aspirin EC] 81 mg PO DAILY 10/19/17 Calcium Citrate 333 gm PO HS 08/15/18 Calcium Citrate 666 gm PO DAILY 08/15/18 Cholesterol 20 mg PO BID 08/15/18 Loratadine [Claritin] 10 mg PO HS 08/15/18 Multivitamins [Tab-A-Vit -] 1 tab PO DAILY 08/15/18 [place]-3 Fatty Acids [[place]-3] 1,000 mg PO BID 08/15/18 Sitagliptin Phosphate [Januvia] 50 mg PO DAILY 08/15/18 Physical Exam-Neuro Vital Signs: Vital Signs Temperature 99.0 F 08/16/18 06:24 Pulse Rate 84 08/16/18 10:30 Respiratory Rate 18 08/16/18 08:19 Blood Pressure 116/63 08/16/18 10:30 O2 Sat by Pulse Oximetry (%) 97 08/16/18 08:19 Labs: CBC, BMP 08/16/18 06:10 08/16/18 06:10 INR, PTT INR 1.08 (0.83-1.09) 08/16/18 06:10 Assessment/Plan 3 year old female with a history of multiple CVAs, with residual APHASIA and LUE weakness(?), who presents s/p unwitnessed fall vs possible syncopal episode ; found to have R subdural , no change HD CT x 2, neuro stable ; seen by NS-no intervention can move to tele; obtain MRI BRAIn and ensure no new stroke neuro check q3 can continue keppra but will not need nursing home no Antiplatelets elevated WBC count-started on ABX DR MARIE
[2018-08-16] MEDS: PANTOPRAZOLE SODIUM 40 MG VIAL IVPUSH SCH ×2 (11:41→21:28)
[2018-08-16] MEDS ORDERED: levETIRAcetam 500 MG/5 ML INJECTION VIAL IVPB ONE (11:41)
[2018-08-16] MEDS: levETIRAcetam 500 MG/5 ML INJECTION VIAL IVPB SCH ×2 (11:41→21:28)
[2018-08-16] MEDS ORDERED: PANTOPRAZOLE SODIUM 40 MG VIAL ONE (11:41)
[2018-08-16] MEDS ORDERED: CEFTRIAXONE 1 GM/50 ML BAG ONE (11:44)
[2018-08-16] MEDS ORDERED: CEFTRIAXONE 1 GM in DEXTROSE 5%-WATER - 50 ML IVPB ONE (11:45)
--- NOTE | 2018-08-16 13:00 | PN ---
Progress Note (short form) - Note Progress Note: PULMONARY/CCM Pt seen and examined in the ER. Repeat CT head unchanged. Neuro exam unchanged. Pt without headache, nausea. Hungry. Vital Signs Period Temp Pulse Resp BP Sys/Haney Pulse Ox Last 24 Hr 98.0 F-99.0 F 80-105 18-21 116-158/63-82 97-100 Intake & Output 08/13/18 08/14/18 08/15/18 08/16/18 23:59 23:59 23:59 23:59 Weight 55.792 kg Gen: NAD at rest Heart: RRR Lung: decreased breath sounds at the bases Abd: soft, nontender Ext: no edema CBC, BMP 08/16/18 06:10 08/16/18 06:10 Active Medications Chlorhexidine Gluconate (Hibiclens For Decolonization -) 1 applic TP HS [facility] Sodium Chloride (Normal Saline -) 1,000 mls @ 42 mls/hr IV ASDIR [facility] Last Admin: 08/15/18 14:52 Dose: 42 mls/hr Insulin Aspart (Novolog Vial Sliding Scale -) 1 vial SQ Q4H [facility]; Protocol Last Admin: 08/16/18 09:18 Dose: Not Given Levetiracetam (Keppra Injection -) 500 mg IVPB BID [facility] Last Admin: 08/16/18 11:41 Dose: 500 mg Mupirocin (Bactroban Ointment (For Decolonization) -) 1 applic NS BID [facility] Stop: 08/20/18 21:59 Pantoprazole Sodium (Protonix Iv) 40 mg IVPUSH BID [facility] Last Admin: 08/16/18 11:41 Dose: 40 mg A/P s/p Fall Subdural Hematoma with mass effect Platelet Dysfunction from antiplatelets HTN DM h/o CVA UTI - neuro checks - neuro/neurosurgery f/u - holding antiplatelets - continue antibiotics for UTI - f/u cultures - mechanical DVT prophylaxis - can monitor on telemetry if no neurosurgical intervention planned
--- NOTE | 2018-08-16 14:26 | PN ---
Physical Exam: SUBJECTIVE: Patient seen and examined No complaints or overnight events. OBJECTIVE: Vital Signs Period Temp Pulse Resp BP Sys/Haney Pulse Ox Last 24 Hr 98.0 F-99.0 F 80-96 18-20 116-158/63-84 96-100 GENERAL: The patient is awake, alert, and fully oriented, in no acute distress. HEAD: Normal with no signs of trauma. EYES: PERRLA, extraocular movements intact ENT: moist mucous membranes. NECK: Trachea midline LUNGS: Breath sounds equal, clear to auscultation bilaterally, no wheezes, no crackles, no accessory muscle use. HEART: Regular rate and rhythm, S1, S2 without murmur, rub or gallop. ABDOMEN: Soft, nontender, nondistended, normoactive bowel sounds, no guarding, no rebound, no hepatosplenomegaly, no masses. EXTREMITIES: 2+ pulses, warm, well-perfused, no edema. NEUROLOGICAL: Cranial nerves II through XII grossly intact. PSYCH: Normal mood, normal affect. SKIN: Warm, dry, normal turgor, no rashes or lesions noted Laboratory Results - last 24 hr 08/15/18 08/15/18 08/15/18 15:54 17:21 20:14 WBC RBC Hgb Hct MCV MCH MCHC RDW Plt Count MPV Absolute Neuts (auto) Neutrophils % Lymphocytes % Monocytes % Eosinophils % Basophils % Nucleated RBC % PT with INR INR PTT (Actin FS) Sodium Potassium Chloride Carbon Dioxide Anion Gap BUN Creatinine Creat Clearance w eGFR POC Glucometer 117.68325 107.98867 Random Glucose Calcium Phosphorus Magnesium Total Bilirubin AST ALT Alkaline Phosphatase Troponin I < 0.02 Total Protein Albumin 08/16/18 08/16/18 08/16/18 06:10 06:10 06:10 WBC 9.2 RBC 5.40 H Hgb 15.4 H Hct 43.5 MCV 80.5 MCH 28.5 MCHC 35.4 RDW 13.9 Plt Count 253 MPV 8.3 Absolute Neuts (auto) 6.5 Neutrophils % 70.5 Lymphocytes % 15.4 D Monocytes % 12.1 H D Eosinophils % 1.5 D Basophils % 0.5 Nucleated RBC % 0 PT with INR 12.80 INR 1.08 PTT (Actin FS) 31.4 Sodium 142 Potassium 4.2 Chloride 111 H Carbon Dioxide 24 Anion Gap 7 L BUN 16 Creatinine 0.6 Creat Clearance w eGFR > 60 POC Glucometer Random Glucose 119 H Calcium 8.7 Phosphorus 3.0 Magnesium 2.3 Total Bilirubin 1.5 H AST 27 ALT 30 Alkaline Phosphatase 84 Troponin I Total Protein 6.8 Albumin 3.7 08/16/18 08:24 WBC RBC Hgb Hct MCV MCH MCHC RDW Plt Count MPV Absolute Neuts (auto) Neutrophils % Lymphocytes % Monocytes % Eosinophils % Basophils % Nucleated RBC % PT with INR INR PTT (Actin FS) Sodium Potassium Chloride Carbon Dioxide Anion Gap BUN Creatinine Creat Clearance w eGFR POC Glucometer 123.08149 Random Glucose Calcium Phosphorus Magnesium Total Bilirubin AST ALT Alkaline Phosphatase Troponin I Total Protein Albumin Active Medications Generic Name Dose Route Start Last Admin Trade Name Freq PRN Reason Stop Dose Admin Chlorhexidine Gluconate 1 applic 08/15/18 22:00 Hibiclens For Decolonization - TP HS JUSTEN Sodium Chloride 1,000 mls @ 42 mls/hr 08/15/18 14:00 08/15/18 14:52 Normal Saline - IV 42 mls/hr ASDIR JUSTEN Administration Ceftriaxone Sodium 1 gm/ 50 mls @ 100 mls/hr 08/17/18 10:00 Dextrose IVPB 08/19/18 10:29 DAILY JUSTEN Insulin Aspart 1 vial 08/15/18 11:45 08/16/18 13:40 Novolog Vial Sliding Scale - SQ Not Given Q4H [facility] Protocol Levetiracetam 500 mg 08/15/18 22:00 08/16/18 11:41 Keppra Injection - IVPB 500 mg BID JUSTEN Administration Mupirocin 1 applic 08/15/18 22:00 Bactroban Ointment (For Decolonization) - NS 08/20/18 21:59 BID JUSTEN Pantoprazole Sodium 40 mg 08/15/18 22:00 08/16/18 11:41 Protonix Iv IVPUSH 40 mg BID JUSTEN Administration ASSESSMENT/PLAN: 83 year old woman with history of DM, HTN, CVA (2014) w/ R sided residual deficit in face, R arm and dragging of R foot when walking presenting with unwitnessed fall this AM that was not preceded by chest pain, shortness of breath, nausea or dizziness. Patient on ASA and plavix. Patient does not recall what caused her to fall. Patient felt dizzy s/p fall, that has since resolved. In ED - Head CT: R subdural hematoma - Neurosurgery consulted: CT f/u, observation, platelets as hematoma > 5mm - UA: elevated wbc, ucx pending - Ceftriaxone started - Negative troponin Neuro R subdural hematoma > 5mm - Neuro check Q1H - Keppra 500mg BID for seizure ppx - Head of bed > 30 degrees - hold ASA, plavix - Neurosurgery following Dr. Ledezma - Repeat head CT w/o change - no neurosurg intervention planned at this time. cont. monitoring, can transfer to tele. - Brain MRI pending Cardiac - hold ASA, plavix - cardiac monitoring - HTN keep SBP < 140 - ECHO - negative trop Endo DM - Sliding scale insulin - BGM ACHS ID Urinary Tract Infection - Ceftriaxone 10/26 F/E/N - diabetic diet - bedside swallow evaluation GI ppx: protonix DVT ppx: SCDs Dispo: Can transfer to telemetry Visit type - Emergency Visit Emergency Visit: No - New Patient This patient is new to me today: No - Critical Care Critical Care patient: No
--- NOTE | 2018-08-16 15:14 | PN ---
Teaching Attending Note Name of Resident: Sharee Echeverria ATTENDING PHYSICIAN STATEMENT I saw and evaluated the patient. I reviewed the resident's note and discussed the case with the resident. I agree with the resident's findings and plan as documented. SUBJECTIVE: no fever or chills, no pain. OBJECTIVE: NA D Cv : RRR Lungs: CTAB Abd: soft, NT, Nd , NL BS Ext : no edema neuro : EOMI, round pupils, R lower facial droop. tongue at mid line. strength 5 / 5in upper and lower extremities proxially simon distally except for 3/5 in R shoulder abduction and shoulder shrug. reflexes 2+ biceps , BR, and knee jerk b/l ASSESSMENT AND PLAN: 83 y/o lady withh/o HTN, DM, h/o CVA who presented after a fall and was found to have acute ICH 1- ICH: after a fall . repeat CT with stable bleed - cont Keppra - appreciate neuro and neuro sx help. - MRI of brain - avoid any heparin products or anti-plt - neuro checks 2- Fall: mechanical vs syncope - monitor on tele - PT eval 3- Possible UTI: cont ceftriaxone follow urine cx 4- DM : SSI 5- dispo : HLOC
[2018-08-16 16:16] VITALS: BMI 26.2
[2018-08-16] MEDS: SODIUM CHLORIDE 1,000 ML IV SCH ×2 (17:04→17:05)
[2018-08-16] MEDS: MUPIROCIN 2% TOPICAL OINTMENT FOR DECOLONIZATION NS SCH ×2 (17:05→19:17)
[2018-08-16] MEDS ORDERED: ACETAMINOPHEN 325 MG TABLET (FP) PO PRN (17:17)
[2018-08-16] MEDS ORDERED: MUPIROCIN 2% TOPICAL OINTMENT FOR DECOLONIZATION NS SCH (22:00)
[2018-08-16] MEDS ORDERED: CHLORHEXIDINE GLUCONATE 4% CLEANSER FOR DECOLONIZATION TP SCH (22:00)
[2018-08-17] MEDS: INSULIN SLIDING SCALE (NOVOLOG) 1 VIAL SQ SCH ×2 (06:42→12:06)
[2018-08-17 06:46] LABS: BASO % 0.2 % (0-2.0); EOS % 3.5 % (0-4.5); HEMATOCRIT 42.4 % (32.4-45.2); HEMOGLOBIN 15.2 GM/dL (10.7-15.3); LYMPH % 19.6 % (8-40); MCH 28.7 pg (25.7-33.7); MCHC 35.9 g/dl (32.0-36.0); MEAN CELL VOLUME 79.9 fl (80-96); MEAN PLT VOLUME 8.4 fl (7.5-11.1); MONO % 10.4 % (3.8-10.2); NEUT % 66.3 % (42.8-82.8); PLATELET COUNT 249 K/MM3 (134-434); RBC 5.31 M/mm3 (3.60-5.2); RDW 14.1 % (11.6-15.6); WHITE BLOOD COUNT 9.4 K/mm3 (4.0-10.0)
[2018-08-17 07:17] LABS: ALBUMIN 3.5 g/dl (3.4-5.0); ALK PHOS 79 U/L (45-117); ANION GAP 7 MMOL/L (8-16); BILIRUBIN,TOTAL 1.2 mg/dL (0.2-1); BLOOD UREA NITROGEN 19 mg/dL (7-18); CALCIUM 8.8 mg/dL (8.5-10.1); CHLORIDE 112 mmol/L (98-107); CO2 21 mmol/L (21-32); CREATININE 0.7 mg/dL (0.55-1.3); GLUCOSE,RANDOM 126 mg/dL (74-106); MAGNESIUM 2.3 mg/dL (1.8-2.4); PHOSPHOROUS 2.4 mg/dL (2.5-4.9); POTASSIUM 4.2 mmol/L (3.5-5.1); SGOT/AST 26 U/L (15-37); SGPT/ALT 32 U/L (13-61); SODIUM 141 mmol/L (136-145); TOT PROT 6.9 g/dl (6.4-8.2)
--- NOTE | 2018-08-17 08:08 | PN ---
Progress Note (short form) - Note Progress Note: NEUROSURGERY Sitting up in chair On 4S No H/A or N/V or dizziness. PE: AF, VSS HEENT- small R parietal occipital cephalohematoma; Neck- supple; Cor- RR; Lungs - CTA; Abd- benign; Ext- no sign of DVT A/A, Nicaraguan speaking but understands Romansh CN- intact except mild flatting R nasolabial fold; Motor- 5/5 except R shoulder and arm/hand 4/5 (old per family); Sensation- intact LT; DTR- 1+; toes upgoing B WBC normalizing Head CT- R parietal > temporal SDH with mild mass effect but no shift; mild atrophy; moderate periventricular/cerebellar vascular disease; thickest SDH about 13 mm R parietal region F/u CT- unchanged Brain MRI 2016- moderate atrophy, marked periventricular small vessel disease Acute R temporo-parieta SDH with mild mass effect- stable on f/u CT Pt is minimally if symptomatic at all so hopefully could avoid surgery Cont keppra x 1 week total On ceftriaxone PT/rehab
[2018-08-17] MEDS ORDERED: NAPH,MB-DB/K PH,MBDB POWDER PACKET PO ONE (08:45)
[2018-08-17] MEDS ORDERED: cefTRIAXone SODIUM 1 GM VIAL ONE (09:10)
[2018-08-17] MEDS ORDERED: DEXTROSE 5%-WATER - 50 ML IVPB ONE (09:11)
[2018-08-17] MEDS: levETIRAcetam 500 MG/5 ML INJECTION VIAL IVPB SCH (09:26)
[2018-08-17] MEDS: SODIUM CHLORIDE 1,000 ML IV SCH (09:30)
[2018-08-17] MEDS: PANTOPRAZOLE SODIUM 40 MG VIAL IVPUSH SCH (09:33)
[2018-08-17] MEDS ORDERED: CEFTRIAXONE 1 GM in DEXTROSE 5%-WATER - 50 ML IVPB SCH (10:00)
--- NOTE | 2018-08-17 11:00 | PN ---
Teaching Attending Note Name of Resident: Enriqueta Amor ATTENDING PHYSICIAN STATEMENT I saw and evaluated the patient. I reviewed the resident's note and discussed the case with the resident. I agree with the resident's findings and plan as documented. SUBJECTIVE: No fever or chills. No cp , no SOB, has weakness in RUE but this is not new to her. walked with PT. slight Posterior CLAIRE OBJECTIVE: NAD, awake, and cooperative Cv : RRR Lungs: CTAB Abd: soft, NT, Nd , NL BS Ext : no edema Neuro : EOMI, round pupils, R lower facial droop. tongue at mid line. strength 5 / 5 in upper and lower extremities proximally and distally except for 3/5 in R shoulder abduction and shoulder shrug. reflexes 2+ biceps , BR, and knee jerk b/l ASSESSMENT AND PLAN: 83 y/o lady with h/o HTN, DM, h/o CVA who presented after a fall and was found to have acute ICH 1- R subdural hematoma: after a fall. no new neurological deficits - cont Keppra . switch to po . will confirm duration with neuro - MRI of brain with no acute stroke -will ask Neuro sx when it is safe to resume her ASA 2- Fall: mechanical vs syncope 3- Possible UTI: cont ceftriaxone day 2. her initial leukocytosis is likely reactive rather than due to UTI as it spontaneously dropped to NL event before Abx were started . So will treat her UTI as simple cystitis x 3 days only. Urine cx with E coli, will use keflex x 1 more day 4- DM : SSI . po meds at dc 5- dispo : Likely can dc home today. will confirm with Neuro sx
--- NOTE | 2018-08-17 12:28 | PN ---
Progress Note (short form) - Note Progress Note: No acute events overnight. Slight CLAIRE. No CP or SOB. Intake & Output 08/14/18 08/15/18 08/16/18 08/17/18 23:59 23:59 23:59 23:59 Intake Total 646 794 Balance 646 794 Weight 123 lb 125 lb 6.4 oz 122 lb 4.8 oz Last Vital Signs Temp Pulse Resp BP Pulse Ox 97.8 F 76 18 132/61 96 08/17/18 09:38 08/17/18 09:38 08/17/18 09:38 08/17/18 09:38 08/17/18 09:39 Active Medications Acetaminophen (Tylenol -) 650 mg PO Q6H PRN PRN Reason: PAIN LEVEL 6-10 Last Admin: 08/16/18 17:55 Dose: 650 mg Ceftriaxone Sodium 1 gm/ (Dextrose) 50 mls @ 100 mls/hr IVPB DAILY JUSTEN Stop: 08/19/18 10:29 Last Admin: 08/17/18 09:38 Dose: 100 mls/hr Sodium Chloride (Normal Saline -) 1,000 mls @ 42 mls/hr IV ASDIR JUSTEN Last Admin: 08/17/18 09:30 Dose: 42 mls/hr Insulin Aspart (Novolog Vial Sliding Scale -) 1 vial SQ ACHS [facility]; Protocol Last Admin: 08/17/18 12:06 Dose: 2 unit Levetiracetam (Keppra -) 500 mg PO BID JUSTEN Pantoprazole Sodium (Protonix Iv) 40 mg IVPUSH BID [facility] Last Admin: 08/17/18 09:33 Dose: 40 mg Gen: NAD at rest Heart: RRR Lung: decreased breath sounds at the bases Abd: soft, nontender Ext: no edema Laboratory Results - last 24 hr 08/15/18 08/16/18 08/16/18 15:54 13:24 16:58 WBC RBC Hgb Hct MCV MCH MCHC RDW Plt Count MPV Absolute Neuts (auto) Neutrophils % Lymphocytes % Monocytes % Eosinophils % Basophils % Nucleated RBC % Sodium Potassium Chloride Carbon Dioxide Anion Gap BUN Creatinine Creat Clearance w eGFR POC Glucometer 114.48888 168 Random Glucose Calcium Phosphorus Magnesium Total Bilirubin AST ALT Alkaline Phosphatase Total Protein Albumin Prolactin 5.4 11/28/18 11/29/18 11/29/18 21:30 06:00 06:00 WBC 9.4 RBC 5.31 H Hgb 15.2 Hct 42.4 MCV 79.9 L MCH 28.7 MCHC 35.9 RDW 14.1 Plt Count 249 MPV 8.4 Absolute Neuts (auto) 6.2 Neutrophils % 66.3 Lymphocytes % 19.6 D Monocytes % 10.4 H Eosinophils % 3.5 D Basophils % 0.2 Nucleated RBC % 0 Sodium 141 Potassium 4.2 Chloride 112 H Carbon Dioxide 21 Anion Gap 7 L BUN 19 H Creatinine 0.7 Creat Clearance w eGFR > 60 POC Glucometer 127 Random Glucose 126 H Calcium 8.8 Phosphorus 2.4 L Magnesium 2.3 Total Bilirubin 1.2 H AST 26 ALT 32 Alkaline Phosphatase 79 Total Protein 6.9 Albumin 3.5 Prolactin 08/17/18 06:25 WBC RBC Hgb Hct MCV MCH MCHC RDW Plt Count MPV Absolute Neuts (auto) Neutrophils % Lymphocytes % Monocytes % Eosinophils % Basophils % Nucleated RBC % Sodium Potassium Chloride Carbon Dioxide Anion Gap BUN Creatinine Creat Clearance w eGFR POC Glucometer 119 Random Glucose Calcium Phosphorus Magnesium Total Bilirubin AST ALT Alkaline Phosphatase Total Protein Albumin Prolactin A/P s/p Fall Subdural Hematoma with mass effect Platelet Dysfunction from antiplatelets HTN DM h/o CVA UTI - Neuro checks - holding antiplatelets - ABX for UTI - mechanical DVT prophylaxis - Fall precautions Dr Sneed
--- NOTE | 2018-08-17 14:37 | DS ---
Physical Exam: SUBJECTIVE: Patient is 83 y/o female with a history of multiple CVA's with residual left UE weakness and aphasia, DMII, HTN, and HLD who is here for subdural hematoma. Patient had no acute events overnight. patient had no complaints overnight. OBJECTIVE: Vital Signs Temperature 97.9 F 08/17/18 14:00 Pulse Rate 73 08/17/18 14:00 Respiratory Rate 18 08/17/18 14:00 Blood Pressure 123/67 08/17/18 14:00 O2 Sat by Pulse Oximetry (%) 96 08/17/18 09:39 PHYSICAL EXAM GENERAL: The patient is awake, alert, and fully oriented, in no acute distress. HEAD: Normal with no signs of trauma. EYES: PERRL, extraocular movements intact, . NECK: Trachea midline, full range of motion, supple. LUNGS: Breath sounds equal, clear to auscultation bilaterally, HEART: Regular rate and rhythm, S1, S2 without murmur, rub or gallop. ABDOMEN: Soft, nontender, nondistended, normoactive bowel sounds, EXTREMITIES: 2+ pulses, warm, well-perfused, no edema. NEUROLOGICAL: Cranial nerves II through XII grossly intact. Normal speech, gait not observed. UE 5/5 strength, LE 5/5 strength R hand dairy nutrition specialist mildly less compared to right, sensation intact bilaterally PSYCH: Normal mood, normal affect. SKIN: Warm, dry, normal turgor, no rashes or lesions noted LABS CBC, BMP 08/17/18 06:00 08/17/18 06:00 HOSPITAL COURSE: Date of Admission:08/15/18 Patient admitted ot hospital for fall. patient had brain CT done which showed small subdural bleed. Patient evaluated by neurosurgery and placed on keppra. Patient had repeat head CT which did not show any interval change. Per neurosurgery patient asymptomatic and not a candidate for surgery. Patient evaluated by neurology and also found to be at baseline. Patient will complete one week of Keppra and instructed to follow up with neurology outpatient. Patient found to have a UTI in the hospital. Treated with abx and will complete one more day of abx. Pantients antiplatlets will be held. Patient unsteady with PT. per patients family they do not wish for rehab. Patient sent home with VNS services per request of family. brain MRI: no evidence of abnormal restricted diffusion, right subdural hematoma unchanged, chronic infratentorial, supratentorial infarcts, supratentorial white matter. Date of Discharge: 08/17/18 Minutes to complete discharge: 40 Discharge Summary Reason For Visit: SUBDURAL HEMATOMA Current Active Problems Subdural hematoma (Acute) Condition: Improved - Instructions Diet, Activity, Other Instructions: You presented to the Emergency Department because you had fallen. We did imaging of your head and found that you have a small bleed. We did repeat imaging which found the bleed is not getting bigger and is stable at this time. While you were here you also had an infection in your urine. We treated you with antibiotics. For the bleed in your head you will take: Keppra 500mg by mouth, You will take one dose tonight. Starting tomorrow you will take Keppra 500 mg twice a day for a total of five days. To complete treatment of your UTI you will take: Keflex 500mg twice a day only tomorrow. Do not take your plavix or aspirin for one month. Discuss resuming your medication with your PCP. Follow-up To monitor your condition, you should follow up with neurosurgeon, Dr. Ledezma and neurologist Dr. Wiggins within one week. Please also follow up with your primary care physician within one week. Please continue your home medications as prescribed. Additional instructions Return to the Emergency Department if you have any headaches, falls, nausea, vomiting, change in vision, chest pain, or shortness of breath. Referrals: Mich Wiggins DO [Staff Physician] - 1 Week Bam Ledezma MD [Staff Physician] - 1 Week Disposition: VNS/HOME HEALTH CARE - Home Medications Comprehensive Discharge Medication List: Ambulatory Orders Canagliflozin [Invokana] 100 mg PO DAILY 04/02/17 Glimepiride [Amaryl -] 2 mg PO BID 04/02/17 Sitagliptin Phosphate [Januvia] 50 mg PO DAILY 08/15/18 Cephalexin [Keflex] 500 mg PO BID #2 capsule 08/17/18 levETIRAcetam [Keppra -] 500 mg PO BID #11 tablet 08/17/18 This patient is new to me today: No Emergency Visit: No Critical Care patient: No - Discharge Referral Referred to [facility] No
[2018-08-17 15:02] VITALS: BP 123/67; PULSE 73; TEMP 97.9
[2018-08-17] MEDS ORDERED: levETIRAcetam 500 MG TABLET (FP) PO SCH (22:00)
== END 2018-08-17 17:01 | disposition home health service (06) | DRG 83 ==
LOC: JER 08:04 → JERBED 10:42 → J4S 08-16 14:43
PROVIDERS: ADMIT Internal Medicine; ATTEND Internal Medicine
PROC: 30233R1 Transfusion of Nonautologous Platelets into Peripheral Vein, Percutaneous Approach (ICD-10-PCS; principal; 2018-08-15)
DX: S06.5X9A Traumatic subdural hemorrhage with loss of consciousness of unspecified duration, initial encounter (principal); I69.351 Hemiplegia and hemiparesis following cerebral infarction affecting right dominant side; N39.0 Urinary tract infection, site not specified; D72.829 Elevated white blood cell count, unspecified; E11.9 Type 2 diabetes mellitus without complications; E78.00 Pure hypercholesterolemia, unspecified; I10 Essential (primary) hypertension; M75.02 Adhesive capsulitis of left shoulder; M50.322 Other cervical disc degeneration at C5-C6 level; M43.02 Spondylolysis, cervical region; M43.13 Spondylolisthesis, cervicothoracic region; R47.81 Slurred speech; D69.1 Qualitative platelet defects; W01.0XXA Fall on same level from slipping, tripping and stumbling without subsequent striking against object, initial encounter; Y92.098 Other place in other non-institutional residence as the place of occurrence of the external cause
CPT/HCPCS: 36415; 36430; 36511; 70450-TC; 70551-TC; 71045-TC-FY; 72125-TC; 80048; 80053; 81003; 81015; 82550; 82962; 83735; 84100; 84146; 84484; 85025; 85610; 85730; 86850; 86900; 86901; 87086; 87186; 93005; 93010; 93306-TC; 97116-GP; 97162-GP; 99285-25; J7030; P9034; P9038